=== PATIENT | female | born 1955 | race Caucasian/White ===

== ENCOUNTER 2018-05-17 15:16 | Inpatient (IN) ==
[2018-05-17] MEDS ORDERED: ACETAMINOPHEN 500 MG TABLET PO PRN (16:52)
--- NOTE | 2018-05-17 17:06 | IRU History & Physical Report ---
HPI IRU Date: Date: 05/17/18 Time: 1703 Chief complaint: I fell and have injured both legs HPI: Ms. Mccurdy is a very pleasant 62-year-old female referred by Maged Partida M.D. Her primary care physician is Shelbie Bansal D.O. The patient was caring for her neighbors dog. She had gotten through taking care of the dog and then exited the house and stepped into the garage down 2 steps. This was on 05/12/2018. She felt like her "hip went out" resulting in a fall and severe scraping of her left leg. Injuries sustained included a closed fracture of the shaft the fifth metatarsal bone on the right foot and a nondisplaced fracture of the left lateral malleolus. She also sustained a severe degloving injury of the left lower leg. The patient was transferred to [facility] in [place] where she was seen by Dr. Jung Summers on 05/12/[address] Maged Partida, general surgery. Procedures performed on that date included irrigation and debridement of left lower extremity 20 cm long by 5 cm wide and 24 cm long by 4 cm wide lacerations , application of a wound VAC and a partial primary closure of left lower extremity. She was placed in a postoperative shoe for her right foot metatarsal fracture, although is nonweightbearing on the right lower extremity. Both fractures were treated non-surgically. She currently has a long incision which has been sutured in the anterior aspect of the left chou. There is a very large area of defect with opening down to the bone just lateral to that. The patient has a history of hypertension. She says that the medications that she takes for this sometimes causes leg cramps. At the present time her blood pressure is bit on the low side around 95 systolic, based on information from [place]. She also has history of chronic back pain and obesity. The patient has been independent at home prior to this. She lives with her in their own home. She has 3 steps to get into her home and does not have a railimg available at the present time. Current level of functioning is as follows: She is modified independent for eating, requires supervision for grooming, minimum assistance for upper body dressing and toileting as well as bed/chair/wheelchair transfers. She requires moderate assistance for lower body dressing, minimum assistance for toilet transfers and walking. She is able to ambulate with a rolling walker 10 feet only. She is nonweightbearing on the right lower extremity and weightbearing as tolerated on the left lower extremity. She requires a two-person assist. She is able to take 3 small steps forward, pivot and then take 3 small steps backward to chair without weightbearing on the right lower extremity. She has decreased stride length. She has previous right shoulder surgery consisting of a number of "anchors" in place in the right labrum which impedes her ability to use the walker. The following medical conditions are noted and require active monitoring and/or management: 1. Closed fracture of shaft of fifth metatarsal bone of right foot, nonweightbearing, non-operative repair 2. Nondisplaced fracture left lateral malleolus status post ORIF, weightbearing as tolerated 3. Degloving of left lower extremity with extensive irrigation and debridement with wound VAC application, at risk for wound infection 4. Hypertension, at risk for hypotension and excessive hypertension 5. Chronic back pain 6. Obesity The following therapies will be needed: 1. Physical therapy: for transfers and ambulation and stairs. 2. Occupational therapy: for ADL's and transfers. 3. Medical management: for the above conditions. 4. 24 hour Rehabilitation Nursing to monitor and address the following: Monitor and manage wound care, monitor blood pressures, pain management [facility] Medical History (Last Reviewed 12/23/17 @ 19:30 by ERIKA Gautam) High cholesterol (Chronic Medical) Osteoarthritis (Chronic Medical) HTN (hypertension) (Acute Medical) Restless leg syndrome (Acute Medical) GERD (gastroesophageal reflux disease) (Chronic Medical) Medical History Updates: Migraine headaches. Restless leg syndrome. Insomnia Surgical History: R total knee replacement; R shoulder surgery: labrum surgery with multiple "anchors" placed-2005; L second toe; Resection Prox phalanx L 3rd toe-2012; tonsils, , Tubal ligation Family History: Family History (Last Reviewed 12/23/17 @ 19:30 by ERIKA Gautam) Mother Arthritis Heart attack High blood pressure High cholesterol Stroke Family History Updates: Father of prostate cancer in his early 80s. Mother of heart attack in her early 80s as well. Multiple siblings have hypertension. - Social History Smoking status: Never smoker Substance use type: does not use Alcohol intake: never Alcohol intake frequency: does not drink Housing: house Household members: spouse Current occupational status: employed Current residence: Apartment/Private Home Social history: Patient lives in her own home with her . She is independent at home. 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 Review of Systems - Constitutional Constitutional: Absent: anorexia, chills, fatigue, fever(s), headache(s), lethargy, malaise, night sweats, weakness, weight gain, weight loss - EENMT Eyes: Absent: blurry vision, change in vision, diplopia Mouth/Throat: Absent: changes in swallowing, painful swallowing, change in taste , bleeding gums, change in voice - Cardiovascular Cardiovascular: Absent: chest pain, palpitations, syncope, dyspnea on exertion, orthopnea, edema, cyanosis, heart murmur Rhythm: Present: regular rhythm Vascular: Absent: intermittent claudication, pedal edema, unilateral swelling - Respiratory Respiratory: Absent: cough, dyspnea, hemoptysis, dyspnea on exertion, wheezing, pain on inspiration, chest congestion, excessive phlegm production - Gastrointestinal Gastrointestinal: Absent: abdominal pain, change in bowel habits, constipation, diarrhea, dyspepsia, dysphagia, early satiety, hematochezia, melena, nausea, vomiting - Musculoskeletal Musculoskeletal: Absent: abnormal gait, arthralgias, back pain, joint swelling, limited range of motion, muscle weakness - Integumentary/Breasts Integumentary: Absent: alopecia, erythema, lesions, pruritus, rash, jaundice - Neurological Neurological: Absent: abnormal gait, abnormal movements, abnormal speech, confusion, convulsions, dizziness, focal weakness, frequent falls, headache(s), loss of vision, memory loss, numbness, paresthesias, tremor(s) - Psychiatric Psychiatric: Present: other (insomnia). Absent: abnormal sleep pattern, anxiety , depression - Endocrine Endocrine: Absent: cold intolerance, flushing, heat intolerance, palpitations - Hematologic/Lymphatic Hematologic/Lymphatic: Absent: easy bleeding, easy bruising, lymphadenopathy - Allergic/Immunologic Allergic/Immunologic: Absent: urticaria Medications Home Medications Medication Instructions Recorded Confirmed Type Omeprazole/Sodium Bicarbonate 1 cap PO HS #0 09/20/12 05/17/18 History [Zegerid 20 mg Capsule] Rizatriptan Benzoate [Maxalt] 10 mg PO PRN #0 09/20/12 05/17/18 History hydrochlorothiazide 12.5 mg tablet 12.5 mg PO HS 10/26/17 05/17/18 History Acetaminophen [Acetaminophen Extra 1,000 mg PO Q6HR PRN 05/17/18 05/17/18 History Strength] Amlodipine [Norvasc] 2.5 mg PO HS 05/17/18 05/17/18 History Lisinopril [Prinivil] 20 mg PO HS 05/17/18 05/17/18 History Metoprolol Succinate [Toprol Xl] 100 mg PO HS 05/17/18 05/17/18 History PEG 3350 17gm PACKET [Miralax] 17 gm PO DAILY 05/17/18 05/17/18 History Pramipexole Di-HCl [Mirapex] 0.125 mg PO HS 05/17/18 05/17/18 History Rizatriptan Benzoate [Maxalt] 10 mg PO DAILY PRN 05/17/18 05/17/18 History Allergies Allergy/AdvReac Type Severity Reaction Status Date / Time adhesive Allergy Unknown ITCHING, Verified 12/23/17 14:53 RASH Sulfa (Sulfonamide Allergy Unknown N&V Verified 12/23/17 14:53 Antibiotics) acetaminophen AdvReac Unknown ITCH Verified 12/23/17 14:53 Choline Fenofibrate Allergy Unknown MUSCLE Uncoded 12/23/17 14:53 CRAMPS diclofenac potassium Allergy Unknown STOMACH Uncoded 12/23/17 14:53 DISTRESS oxycodone HCl AdvReac Unknown ITCH Uncoded 12/23/17 14:53 statins AdvReac Uncoded 12/23/17 14:53 Results IRU - Labs Labs: I have reviewed outside records from [facility]. Exam Vital Signs: Temperature 98.3 F 05/17/18 16:31 Pulse Rate 84 05/17/18 16:31 Respiratory Rate 16 05/17/18 16:31 Blood Pressure 144/73 H 05/17/18 16:31 Pulse Oximetry 97 05/17/18 16:31 Height/Weight/BMI: Weight 104.2 kg - Constitutional Present: no acute distress, well nourished, well developed, obese, cooperative - Routine HEENT Exam Head: Present: normocephalic, atraumatic. Absent: cushingoid faces, abrasion, laceration, hematoma Eye: Present: EOMI, PERRL. Absent: conjunctival icterus, scleral injection, periorbital swelling, nystagmus ENT: Present: mucous membranes moist, oropharynx clear - Routine Neck Exam Present: supple, full ROM, trachea midline. Absent: lymphadenopathy, thyromegaly, tenderness, swelling - Routine Chest/Breast/Axilla Exam Chest wall: Absent: tenderness, mass Axillae: Absent: lymphadenopathy, mass - Routine Respiratory Exam Present: CTA bilaterally. Absent: accessory muscle use, decreased breath sounds , prolonged expiratory phase, rales, respiratory distress, rhonchi, stridor, wheezes, crackles, distant breath sounds - Routine Cardiovascular Exam Present: RRR, S1, S2, no murmur. Absent: gallop, S3, S4, click, irregular rhythm - Routine Abdominal Exam Present: soft, normoactive bowel sounds, non distended, non tender. Absent: rebound, guarding, firm, rigid, organomegaly, mass, hernia, wound - Routine Extremities Exam Present: no edema, non tender, pulses intact, normal capillary refill. Absent: cyanosis, clubbing Comments: There is extensive ecchymoses noted over the right dorsal foot and right lower extremity. Pulses are good. Foot is minimally puffy. Left lower extremity was inspected. She has a large defect involving the anterior portion of the left lower extremity with evidence of bone exposure. No evidence of infection present. There is a large longitudinal sutured laceration noted. - Routine Back/Spine/Pelvis Exam Back/Spine: Present: full ROM. Absent: scoliosis, kyphosis - Routine Skin Exam Present: intact, dry, warm. Absent: cyanosis, erythema, pallor, mottling, petechiae, urticaria, lesions, jaundice - Routine Neurological Exam Present: alert, oriented X3, CN II-XII intact, moving all extremities, normal speech - Routine Psychiatric Exam Present: normal affect, normal thought process, cooperative, good insight, good judgment. Absent: depressed, anxious Sepsis Assessment - Evaluation Severe Sepsis: none seen IRU A/P (1) Metatarsal bone fracture Qualifiers: Encounter type: initial encounter Metatarsal bone: fifth Fracture type: closed Fracture alignment: nondisplaced Laterality: right Qualified Code(s ): S92.354A - Nondisplaced fracture of fifth metatarsal bone, right foot, initial encounter for closed fracture Current visit: Yes Status: Acute Patient is nonweightbearing on the right lower extremity which will impact her functional outcome. (2) Lateral malleolar fracture Qualifiers: Encounter type: initial encounter Fracture type: closed Fracture alignment: nondisplaced Laterality: left Qualified Code(s): S82.65XA - Nondisplaced fracture of lateral malleolus of left fibula, initial encounter for closed fracture Current visit: Yes Status: Acute This fracture is treated conservatively. Patient is weightbearing as tolerated on the left lower extremity. (3) Hypertension Qualifiers: Hypertension type: essential hypertension Qualified Code(s): I10 - Essential (primary) hypertension Current visit: Yes Status: Chronic (4) Degloving injury of left lower leg Qualifiers: Encounter type: initial encounter Qualified Code(s): S81.802A - Unspecified open wound, left lower leg, initial encounter Current visit: Yes Status: Acute Patient has severe degloving injury of left lower leg. There is an primary closure of part of the wound and the reverse the wound is treated with wound VAC. DVT Prophylaxis: SCD's, Lovenox GI Prophylaxis: Omeprazole Resuscitation Status: Full Code - Course Hospital Course: Anish Stevens MD: - Interventions to Obtain Goals Goals Progress/Modifications: Patient has sustained multiple functional deficits related to her recent fall with degloving injury which is major involving the left lower extremity, left lateral malleolar evulsion fracture and right fifth metatarsal fracture. She is nonweightbearing in the right lower extremity and weightbearing as tolerated in the left lower extremity. In addition she has hypertension, insomnia and chronic back pain. Previous surgery involving the right shoulder is noted which will negatively impact her ability to bear weight in the right upper extremity.
--- NOTE | 2018-05-17 17:17 | IRU 24Hr Post Admit Eval ---
24 Hr Post Admission Physical - Relevant Changes Relevant Changes: No Reviewed: I have reviewed the patient's information and concur with the finding and results of the pre-admission screen. Certification: I certify the patient for rehabilitation. - Patient Condition (1) Metatarsal bone fracture Status: Acute Qualifiers: Encounter type: initial encounter Metatarsal bone: fifth Fracture type: closed Fracture alignment: nondisplaced Laterality: right Qualified Code(s ): S92.354A - Nondisplaced fracture of fifth metatarsal bone, right foot, initial encounter for closed fracture Code(s): S92.309A - Fracture of unspecified metatarsal bone(s), unspecified foot , initial encounter for closed fracture Classification: Present on IRF Admission, IRF Tx That Should Address Diagnosis, Diagnosis Requiring Medical Follow Up (2) Lateral malleolar fracture Status: Acute Qualifiers: Encounter type: initial encounter Fracture type: closed Fracture alignment: nondisplaced Laterality: left Qualified Code(s): S82.65XA - Nondisplaced fracture of lateral malleolus of left fibula, initial encounter for closed fracture Code(s): S82.63XA - Displaced fracture of lateral malleolus of unspecified fibula, initial encounter for closed fracture Classification: Present on IRF Admission, IRF Tx That Should Address Diagnosis, Diagnosis Requiring Medical Follow Up (3) Hypertension Status: Chronic Qualifiers: Hypertension type: essential hypertension Qualified Code(s): I10 - Essential (primary) hypertension Code(s): I10 - Essential (primary) hypertension Classification: Present on IRF Admission, IRF Tx That Should Address Diagnosis, Diagnosis Requiring Medical Follow Up (4) Degloving injury of left lower leg Status: Acute Qualifiers: Encounter type: initial encounter Qualified Code(s): S81.802A - Unspecified open wound, left lower leg, initial encounter Code(s): S81.802A - Unspecified open wound, left lower leg, initial encounter Classification: Present on IRF Admission, IRF Tx That Should Address Diagnosis, Diagnosis Requiring Medical Follow Up - Prior Functional Status Lives With: Spouse Residence Type: Apartment/Private Home Assitive Devices: None Prior Functional Status: Indep. at home or school, Indep. w/ IADL - Current Functional Status Current Level of Function: Current level of functioning is as follows: She is modified independent for eating, requires supervision for grooming, minimum assistance for upper body dressing and toileting as well as bed/chair/wheelchair transfers. She requires moderate assistance for lower body dressing, minimum assistance for toilet transfers and walking. She is able to ambulate with a rolling walker 10 feet only. She is nonweightbearing on the right lower extremity and weightbearing as tolerated on the left lower extremity. She requires a two-person assist. She is able to take 3 small steps forward, pivot and then take 3 small steps backward to chair without weightbearing on the right lower extremity. She has decreased stride length. She has previous right shoulder surgery consisting of a number of "anchors" in place in the right labrum which impedes her ability to use the walker. Failed Alternative Therapy: Arrived from Acute Care Patient Requirements: The patient requires oversight by rehabilitation physician to manage their rehabilitation treatment plan and multidisciplinary approach to care that can only be provided in an IRF and requires a multidisciplinary approach to care, provided by professional PTs, OTs, STs, dieticians, RTs, rehabilitation nurses and is not available in lesser levels of care. Limitations Req: Mobility Impairment, ADL Impairment Physical Therapy Minutes: 90 Occupational Therapy Minutes: 90 Therapy: The patient is to receive therapy at least 5 days a week. - Complications/Comorbidities Impact on Functional Outcomes: Patient has history of previous surgery involving the right shoulder. She now has bilateral lower extremity fractures and a severe degloving injury of the left lower extremity which will negatively impact her functional outcome. Barriers to Discharge: Balance, Endurance, Pain Control - Plan to Avoid Complications Plan to Avoid Complications: The patient cannot receive this care in a lesser intensive setting such as Nursing Home or Outpatient Therapy due to the patient requiring the following : Patient has a severe wound involving the soft tissue down to the bone on the left lower extremity. This requires close nursing monitoring and wound VAC management. In addition she has bilateral lower extremity fractures, requiring a multidisciplinary approach with physical therapy and occupational therapy. She has history of chronic back pain, obesity and hypertension all of which need to be monitored carefully and which prevent her from being cared for at a less intensive environment.
--- NOTE | 2018-05-17 17:22 | Wound Care Progress Note ---
Wound Management - Patient Status Premedicated Prior to Dressing Change: No - Wound Left Lower Leg Wound Type: Open Wound Wound Present on Admission?: Yes Degree of Burn: Full Thickness Length: 21 Width: 6.5 Depth: 2.6 Wound Bed Appearance: Beefy Red Yana Wound Appearance: [place], Weeping Tunneling: No Undermining: No Drainage Description: Serosanguineous Drainage Amount: Moderate Drainage Odor: No Odor Dressing Status: Changed Packing Type: Woundvac Sponge Number of Packing Pieces Placed?: 2 Primary Dressing: Transparent Drape Secondary Dressing: Trac Pad Dressing Change Date: 05/17/18 Dressing Change Time: 17:21 Dressing Change Patient Tolerance: Tolerated Well (Pt arrived with a wet to dry drsg, which was removed and black KCI foam place and attached to vac at 125mm) Left Lower Medial Leg Wound Present on Admission?: Yes Drainage Description: Serosanguineous Drainage Amount: Moderate Drainage Odor: No Odor Dressing Status: Changed Primary Dressing: Foam Dressing (Mepilex placed to incision to contain drainage. Incision is well approximated.) Dressing Change Date: 05/17/18 Dressing Change Time: 17:22
[2018-05-17 17:30] VITALS: BMI 39.4
--- NOTE | 2018-05-17 19:10 | General Surgery Consult Note ---
Consult date: 05/18/18 Attending Physician: Anish Stevens MD REPLACED BY [facility] Patient Stated Medical History Hypertension Yes Hx Incontinence No Osteoarthritis Yes Clinic Medical History (Last Reviewed 12/23/17 @ 19:30 by ERIKA Gautam) High cholesterol (Chronic Medical) Osteoarthritis (Chronic Medical) HTN (hypertension) (Acute Medical) Restless leg syndrome (Acute Medical) GERD (gastroesophageal reflux disease) (Chronic Medical) Obesity Medical History Updates: Migraine headaches. Restless leg syndrome. Insomnia Surgical History: R total knee replacement; R shoulder surgery: labrum surgery with multiple "anchors" placed-2005; L second toe; Resection Prox phalanx L 3rd toe-2012; tonsils, , Tubal ligation Family History: Family History (Last Reviewed 12/23/17 @ 19:30 by ERIKA Gautam) Mother Arthritis Heart attack High blood pressure High cholesterol Stroke Family History Updates: Father of prostate cancer in his early 80s. Mother of heart attack in her early 80s as well. Multiple siblings have hypertension. - Social History Smoking status: Never smoker Substance use type: does not use Alcohol intake: never Alcohol intake frequency: does not drink Housing: house Household members: spouse Current occupational status: employed Current residence: Apartment/Private Home Medications Home Medications Medication Instructions Recorded Confirmed Type Omeprazole/Sodium Bicarbonate 1 cap PO HS #0 09/20/12 05/17/18 History [Zegerid 20 mg Capsule] Rizatriptan Benzoate [Maxalt] 10 mg PO PRN #0 09/20/12 05/17/18 History hydrochlorothiazide 12.5 mg tablet 12.5 mg PO HS 10/26/17 05/17/18 History Acetaminophen [Acetaminophen Extra 1,000 mg PO Q6HR PRN 05/17/18 05/17/18 History Strength] Amlodipine [Norvasc] 2.5 mg PO HS 05/17/18 05/17/18 History Lisinopril [Prinivil] 20 mg PO HS 05/17/18 05/17/18 History Metoprolol Succinate [Toprol Xl] 100 mg PO HS 05/17/18 05/17/18 History PEG 3350 17gm PACKET [Miralax] 17 gm PO DAILY 05/17/18 05/17/18 History Pramipexole Di-HCl [Mirapex] 0.125 mg PO HS 05/17/18 05/17/18 History Rizatriptan Benzoate [Maxalt] 10 mg PO DAILY PRN 05/17/18 05/17/18 History Allergies Allergy/AdvReac Type Severity Reaction Status Date / Time adhesive Allergy Unknown ITCHING, Verified 12/23/17 14:53 RASH Sulfa (Sulfonamide Allergy Unknown N&V Verified 12/23/17 14:53 Antibiotics) acetaminophen AdvReac Unknown ITCH Verified 12/23/17 14:53 Choline Fenofibrate Allergy Unknown MUSCLE Uncoded 12/23/17 14:53 CRAMPS diclofenac potassium Allergy Unknown STOMACH Uncoded 12/23/17 14:53 DISTRESS oxycodone HCl AdvReac Unknown ITCH Uncoded 12/23/17 14:53 statins AdvReac Uncoded 12/23/17 14:53 Review of Systems 10-point ROS: negative except for HPI and the following: - Cardiovascular Cardiovascular: Absent: chest pain (angina) - Respiratory Respiratory: Absent: difficulty breathing - Gastrointestinal Gastrointestinal: Absent: nausea - Musculoskeletal Musculoskeletal: Present: joint pain, other (injuries from fall and right foot fracture) - Neurological Neurological: Present: other (restless leg syndrome, poor balance) - Vital Signs Last Vital Signs Temp 98.3 F 05/17/18 16:31 Pulse 84 05/17/18 18:08 Resp 16 05/17/18 18:08 BP 144/73 H 05/17/18 16:31 Pulse Ox 97 05/17/18 18:08 - Laboratory Result Diagrams: 05/18/18 06:29 05/18/18 06:29
[2018-05-17] MEDS: AMLODIPINE 2.5 MG TABLET PO SCH (21:12)
[2018-05-17] MEDS: HYDROCODONE/APAP 7.5 MG/325 MG TABLET PO PRN (21:12)
[2018-05-17] MEDS: APIXABAN 2.5 MG TABLET PO SCH (21:12)
[2018-05-17] MEDS: LISINOPRIL 20 MG TABLET PO SCH (21:13)
[2018-05-17] MEDS: ZOLPIDEM 5 MG TABLET PO SCH (21:14)
[2018-05-17] MEDS: PRAMIPEXOLE 0.25 MG TABLET PO SCH (21:14)
[2018-05-17] MEDS: OMEPRAZOLE 20 MG CAPSULE PO SCH (21:15)
[2018-05-18] MEDS: HYDROCODONE/APAP 7.5 MG/325 MG TABLET PO PRN ×3 (05:31→14:28)
[2018-05-18] MEDS: APIXABAN 2.5 MG TABLET PO SCH ×2 (08:22→20:55)
[2018-05-18] MEDS: POLYETHYL GLYCOL 3350 17gm PACKET PO SCH (08:23)
[2018-05-18] MEDS ORDERED: ENOXAPARIN 40 MG/0.4 ML INJECTION SQ SCH (09:00)
--- NOTE | 2018-05-18 10:47 | IRU Progress Note ---
- Subjective/Serverity of Illness Date: 05/18/18 was reassessed in her room and inpatient rehabilitation. She states that she had a good night and that her pain is adequately controlled. Wound VAC is in place in the left lower extremity. Restless legs were not issued last night and she received her Mirapex as well as Ambien. (Has been on Ambien for 3-4 months about every night she states.) She states that she has no shortness of breath or chest pain. She is eager to get started with therapy and her goal, as hours, is to get her home in a safe manner able to take care of herself. Reviewed her lab. Her hemoglobin is down to 8.7. Indices are fairly normal so likely this is simply acute blood loss. However, for completeness, we will pursue iron studies and stool for Hemoccult. Her blood pressures are reviewed. They are controlled for the most part. She is not hypotensive at present. Exam Vital Signs: Temperature 98.3 F 05/18/18 08:00 Pulse Rate 81 05/18/18 08:00 Respiratory Rate 16 05/18/18 08:00 Blood Pressure 124/65 05/18/18 08:00 Pulse Oximetry 97 05/18/18 08:00 Height/Weight/BMI: Height 1.63 m Weight 104.2 kg Body Mass Index 39.4 - Constitutional Present: no acute distress, well nourished, well developed, obese, cooperative - Routine HEENT Exam Eye: Present: EOMI ENT: Present: mucous membranes moist, dentition normal - Routine Neck Exam Present: supple - Routine Respiratory Exam Present: CTA bilaterally. Absent: wheezes - Routine Cardiovascular Exam Present: RRR, S1, S2. Absent: murmur - Routine Abdominal Exam Present: soft, normoactive bowel sounds, non distended. Absent: tenderness - Routine Extremities Exam Present: no edema, normal capillary refill Comments: Inspected both lower extremities. She has good pulses. Wound VAC in place in the left lower extremity. No surrounding erythema noted. - Routine Skin Exam Present: dry, warm, wounds - Routine Neurological Exam Present: alert, oriented X3, CN II-XII intact - Routine Psychiatric Exam Present: normal affect, normal thought process, cooperative, good insight, good judgment Results IRU - Labs Labs: Reviewed chart data including hemoglobin of 8.7. IRU A/P (1) Metatarsal bone fracture Qualifiers: Encounter type: initial encounter Metatarsal bone: fifth Fracture type: closed Fracture alignment: nondisplaced Laterality: right Qualified Code(s ): S92.354A - Nondisplaced fracture of fifth metatarsal bone, right foot, initial encounter for closed fracture Current visit: Yes Status: Acute Pain adequately controlled. Remains nonweightbearing right lower extremity. (2) Lateral malleolar fracture Qualifiers: Encounter type: initial encounter Fracture type: closed Fracture alignment: nondisplaced Laterality: left Qualified Code(s): S82.65XA - Nondisplaced fracture of lateral malleolus of left fibula, initial encounter for closed fracture Current visit: Yes Status: Acute (3) Hypertension Qualifiers: Hypertension type: essential hypertension Qualified Code(s): I10 - Essential (primary) hypertension Current visit: Yes Status: Chronic Blood pressure initially reported to be low in [place] but is adequate here. (4) Degloving injury of left lower leg Qualifiers: Encounter type: initial encounter Qualified Code(s): S81.802A - Unspecified open wound, left lower leg, initial encounter Current visit: Yes Status: Acute Tolerating wound VAC adequately. Surgery has been consulted. (5) Acute blood loss anemia Current visit: Yes Status: Acute Hemoglobin is 8.7. Presumably this is related to acute blood loss from the severe injury in the left lower extremity. Her indices appear to be normal. She is asymptomatic at present. We will assess iron studies and stool for occult blood for completeness. DVT Prophylaxis: SCD's, Lovenox Resuscitation Status: Full Code - Course Hospital Course: Anish Stevens MD: 05/18/18 10:49 Getting started with therapy. Pain adequately controlled. Significant anemia noted, presumably from acute blood loss. - Interventions to Obtain Goals OT Treatment Plan: ADL (Basic Care), Balance Training, IADL, Pt./Family Education, Ther. Exercise for ADL Goals Progress/Modifications: We will workup her anemia with iron studies, ferritin and stool for occult blood. Right now she is asymptomatic. We will recheck the hemoglobin in the morning as well. Pain appears to be adequately controlled. She is tolerating the wound VAC adequately. Blood pressures are adequately controlled.Please note that the patient's individual plan of care was developed and documented today, requiring review of therapy notes, medical conditions and anticipated functional recovery. This required additional medical decision making with regard to interaction of the patient's medical issues with the anticipated functional recovery. Please see separate document.
--- NOTE | 2018-05-18 10:54 | IRU Plan of Care ---
[facility] Overall Plan of Care - Date Date: 05/18/18 - Patient Impairments (1) Metatarsal bone fracture Qualifiers: Encounter type: initial encounter Metatarsal bone: fifth Fracture type: closed Fracture alignment: nondisplaced Laterality: right Qualified Code(s ): S92.354A - Nondisplaced fracture of fifth metatarsal bone, right foot, initial encounter for closed fracture Code(s): S92.309A - Fracture of unspecified metatarsal bone(s), unspecified foot , initial encounter for closed fracture Status: Acute Classification: Present on IRF Admission, IRF Tx That Should Address Diagnosis, Diagnosis Requiring Medical Follow Up (2) Lateral malleolar fracture Qualifiers: Encounter type: initial encounter Fracture type: closed Fracture alignment: nondisplaced Laterality: left Qualified Code(s): S82.65XA - Nondisplaced fracture of lateral malleolus of left fibula, initial encounter for closed fracture Code(s): S82.63XA - Displaced fracture of lateral malleolus of unspecified fibula, initial encounter for closed fracture Status: Acute Classification: Present on IRF Admission, IRF Tx That Should Address Diagnosis, Diagnosis Requiring Medical Follow Up (3) Hypertension Qualifiers: Hypertension type: essential hypertension Qualified Code(s): I10 - Essential (primary) hypertension Code(s): I10 - Essential (primary) hypertension Status: Chronic Classification: Present on IRF Admission, IRF Tx That Should Address Diagnosis, Diagnosis Requiring Medical Follow Up (4) Degloving injury of left lower leg Qualifiers: Encounter type: initial encounter Qualified Code(s): S81.802A - Unspecified open wound, left lower leg, initial encounter Code(s): S81.802A - Unspecified open wound, left lower leg, initial encounter Status: Acute Classification: Present on IRF Admission, IRF Tx That Should Address Diagnosis, Diagnosis Requiring Medical Follow Up (5) Acute blood loss anemia Code(s): D62 - Acute posthemorrhagic anemia Status: Acute Classification: Present on IRF Admission, IRF Tx That Should Address Diagnosis, Diagnosis Requiring Medical Follow Up - Relevant Changes Relevant Changes: No Reviewed: I have reviewed the patient's information and concur with the finding and results of the pre-admission screen. Certification: I certify the patient for rehabilitation. - Medical Prognosis Medical Prognosis: Good Vital Signs: Last Vital Signs Temp 98.3 F 05/18/18 08:00 Pulse 81 05/18/18 08:00 Resp 16 05/18/18 08:00 BP 124/65 05/18/18 08:00 Pulse Ox 97 05/18/18 08:00 - Anticipated Interventions Anticipated Interventions: The patient requires inpatient IRF care for PT and ST for residuals remaining from fall, multiple fractures and severe soft tissue injury of left lower extremity resulting in muscular weakness and strength deficits. An individualized overall plan of care has been developed after careful review of the patient's preadmission screening, post admission physician evaluation and assessments of all therapy disciplines and/or other pertinent clinicians involved in treating the patient. This indicates medical necessity and rehabilitation necessity have been established through a thorough review of all available medical information. - Current Functional Status Failed Alternative Therapy: Arrived from Acute Care Patient Requires: The patient requires oversight by rehabilitation physician to manage their rehabilitation treatment plan and multidisciplinary approach to care that can only be provided in an IRF and requires a multidisciplinary approach to care, provided by professional PTs, OTs, STs, rehabilitation nurses, and may require STs, dieticians, and RTS. This is not available in lesser levels of care. Physical Therapy Minutes: 90 Occupational Therapy Minutes: 90 Therapy: The patient is to receive therapy at least 5 days a week. - Anticipated LOS/Outcomes Anticipated Functional Outcome: It is anticipated that he will be able to return to her home at modified independent level of functioning, remaining nonweightbearing on the right lower extremity and able to ambulate with an assistive device. It is anticipated she will be able to care for herself independently. Anticipated Length of Stay (days): 14 Anticipated DC Destination: Home, Self Nursing Home Safety Plan: The patient will be provided with the development of a Home Safety Plan for return to a home or home-like environment and and to ensure safety post discharge. - Plan to Avoid Complications Barriers to Attaining Goals: Endurance, Pain Control Plan to Avoid Complications: The patient cannot receive this care in a lesser intensive setting such as [facility] or Outpatient Therapy due to the patient requiring the following : Patient requires specialized nursing care regarding the left lower extremity wound with wound VAC, along with a multidisciplinary approach with physical therapy and occupational therapy. She is at risk for wound infection and further vascular compromise. She requires medical supervision in view of her blood pressure, acute blood loss anemia as well as pain management. These are not available at a less intensive setting.
[2018-05-18] MEDS ORDERED: FALL RISK - PHARMACY CONSULT MC ONE (11:06)
--- NOTE | 2018-05-18 11:18 | Consult Note ---
Consult Information - Data of Consult Consult date: 05/18/18 Requesting Physician: Anish Stevens MD Primary Care Provider: Dr Bansal - Consult Narrative Reason for consult: Medical management History of present illness: Patient is a 62-year-old female who was taking care of her neighbor's dog, walked down the stairs in the garage, and fell because she felt like her left hip gave out. This resulted in a degloving injury of the left lower extremity, a fracture of the right fifth metatarsal, and an avulsion fracture to the left lateral malleolus (fractures were nonsurgical). Injury occurred on May 12. She was taken to [facility] where she was seen by Dr. Maged Partida (general surgeon ) who performed irrigation and debridement, partial primary closure and application of wound VAC of the left lower extremity. Patient reports she was on IV antibiotics while hospitalized in [place] but never had any significant infection that she is aware of. On arrival to our facility she is not on any antibiotics and there is no sign of infection. She is currently nonweightbearing on the right lower extremity due to her metatarsal fracture. She can weight-bear on the left lower extremity, but obviously has pain with this. As long she has pain medication on board, ambulation is tolerable. She states she is on chronic [place] for chronic back pain. Other health issues include hypertension, obesity, hyperlipidemia, GERD, and restless leg syndrome. Past Medical History Medical History: Medical History (Last Reviewed 12/23/17 @ 19:30 by ERIKA Gautam) High cholesterol (Chronic) Osteoarthritis (Chronic) HTN (hypertension) Restless leg syndrome GERD (gastroesophageal reflux disease) Medical History Updates: Migraine headaches. Restless leg syndrome. Insomnia Surgical History: R total knee replacement; R shoulder surgery: labrum surgery with multiple "anchors" placed-2005; L second toe; Resection Prox phalanx L 3rd toe-2012; tonsils, , Tubal ligation, surgical repair & wound VAC for degloving injury to left lower extremity 05/12/18 (Dr. Maged Partida) Family History: Family History Father - age early 80s - prostate cancer Mother - early 80s -[place] Arthritis Heart attack High blood pressure High cholesterol Stroke Multiple siblings-hypertension Family History: As Above - Social History Smoking status: Never smoker Substance use type: does not use Alcohol intake frequency: does not drink Housing: house Household members: spouse Current occupational status: employed ([employer] in [place]) Current residence: Apartment/Private Home Social history: She and her lived in [place]. is self-employed (pest control). PCP is Dr. Shelbie Bansal Review of Systems All systems PM: 10-point ROS was reviewed, no additional remarkable complaints except (had some nausea that occurred when she was feeling hot earlier this morning in her room. No vomiting. Feels fine now. Only complaint is the pain in her leg which she rates 2/10.) Medications Home Medications Medication Instructions Recorded Confirmed Type Omeprazole/Sodium Bicarbonate 1 cap PO HS #0 09/20/12 05/17/18 History [Zegerid 20 mg Capsule] Rizatriptan Benzoate [Maxalt] 10 mg PO PRN #0 09/20/12 05/17/18 History hydrochlorothiazide 12.5 mg tablet 12.5 mg PO HS 10/26/17 05/17/18 History Acetaminophen [Acetaminophen Extra 1,000 mg PO Q6HR PRN 05/17/18 05/17/18 History Strength] Amlodipine [Norvasc] 2.5 mg PO HS 05/17/18 05/17/18 History Lisinopril [Prinivil] 20 mg PO HS 05/17/18 05/17/18 History Metoprolol Succinate [Toprol Xl] 100 mg PO HS 05/17/18 05/17/18 History PEG 3350 17gm PACKET [Miralax] 17 gm PO DAILY 05/17/18 05/17/18 History Pramipexole Di-HCl [Mirapex] 0.125 mg PO HS 05/17/18 05/17/18 History Rizatriptan Benzoate [Maxalt] 10 mg PO DAILY PRN 05/17/18 05/17/18 History Allergies Allergy/AdvReac Type Severity Reaction Status Date / Time adhesive Allergy Unknown ITCHING, Verified 12/23/17 14:53 RASH Sulfa (Sulfonamide Allergy Unknown N&V Verified 12/23/17 14:53 Antibiotics) acetaminophen AdvReac Unknown ITCH Verified 12/23/17 14:53 Choline Fenofibrate Allergy Unknown MUSCLE Uncoded 12/23/17 14:53 CRAMPS diclofenac potassium Allergy Unknown STOMACH Uncoded 12/23/17 14:53 DISTRESS oxycodone HCl AdvReac Unknown ITCH Uncoded 12/23/17 14:53 statins AdvReac Uncoded 12/23/17 14:53 Exam Vital Signs: Temperature 98.3 F 05/18/18 08:00 Pulse Rate 81 05/18/18 08:00 Respiratory Rate 16 05/18/18 08:00 Blood Pressure 124/65 05/18/18 08:00 Pulse Oximetry 97 05/18/18 08:00 Height/Weight/BMI: Height 1.63 m Weight 104.2 kg Body Mass Index 39.4 - Constitutional Present: no acute distress, well nourished, well developed - Routine HEENT Exam Head: Present: normocephalic, atraumatic Eye: Present: EOMI, PERRL ENT: Present: mucous membranes moist, oropharynx clear - Routine Neck Exam Present: supple, full ROM. Absent: lymphadenopathy - Routine Respiratory Exam Present: CTA bilaterally. Absent: wheezes - Routine Cardiovascular Exam Present: RRR, no murmur - Routine Abdominal Exam Present: soft, normoactive bowel sounds. Absent: tenderness, distended - Routine Extremities Exam Present: normal capillary refill Comments: She has edema of the right foot and lower leg with ecchymosis to the lower leg, dorsum and plantar surface of the foot. Tender over the mid to distal right fifth metatarsal. She has significant swelling into the left lower extremity with wound VAC in place to the left lateral lower leg and sutures intact both medial and distal to the wound VAC. Wound is examined while the dressing was being changed. There is no sign of infection. No drainage beyond what is being absorbed in the wound VAC. Overall, repair looks good at this point. - Routine Skin Exam Present: dry, warm - Routine Neurological Exam Present: alert, oriented X3, CN II-XII intact - Routine Psychiatric Exam Present: normal affect, cooperative Results - Labs CBC & Chem 7: 05/18/18 06:29 05/18/18 06:29 Assessment and Plan (1) Degloving injury of left lower leg Current visit: Yes Status: Acute Assessment and Plan: Assessment Status post degloving injury to the left lower leg with partial primary closure and wound VAC application on 05/12/[address] Maged Partida Right closed fifth metatarsal fracture Left lateral malleolus avulsion fracture Normocytic anemia-POA - likely acute blood loss anemia from recent injury/ surgery. Thrombocytosis-POA Hypertension Osteoarthritis Hyperlipidemia Restless leg syndrome GERD Insomnia Migraine headaches Plan Agree with admission to IRU for further strengthening, improvement in functional abilities, and pain control per Dr. Stevens. Dr. Leung and wound clinic have been consulted to to assist in caring for patient's wound. Blood pressures have been stable since arrival. She is currently on Norvasc, hydrochlorothiazide, lisinopril, metoprolol. She is on omeprazole for GERD, Mirapex for restless legs, Ambien for insomnia, Eliquis for DVT prophylaxis, MiraLAX for bowel motivation, and [place] and Tylenol for pain. Hemoglobin low on admission at 8.7. Iron, TIBC, ferritin, % sat, and stool for occult blood are pending. Hospitalist service will continue to follow patient throughout her stay. We appreciate the consult. DVT Prophylaxis: Eliquis Resuscitation Status: Full Code - Physician Narrative Physician: Sailaja Licona MD Narrative: Date: 05/18/18 Time: 2214 I have independently evaluated and examined this patient. I reviewed the chart, the patient's history, and the LAST CHALKER/PA's documented findings as above. We discussed and formulated the assessment and plan as above with additions as below: was seen in the dining room earlier this evening. She describes injury with degloving skin avulsion of the left lower extremity with associated deep wound in the mid chou area; wound VAC is being utilized after primary closure of much of the lower extremity wound. Pain control is adequate. Minor fractures as noted above. NAD, alert, in good spirits Respirations nonlabored, good airflow, breath sounds clear Regular rhythm, S1 and S2 with soft systolic murmur Large wound VAC covering the anterior and anterolateral surfaces of the right chou. Will not directly visualized by myself. Blood pressures borderline on several occasions-continue to monitor on home regimen. Anemia noted, electrolytes unremarkable. Blood sugar borderline high fasting this a.m.-recheck intermittently. Iron deficient-supplement initiated. Hospital Course Summary Disclaimer: The visit summary below is not to be considered part of the above Progress Note. Hospital Course: 05/18/18 Agree with admission to IRU for further strengthening, improvement in functional abilities, and pain control per Dr. Stevens. Dr. Leung and wound clinic have been consulted to to assist in caring for patient's wound. Blood pressures have been stable since arrival. She is currently on Norvasc, hydrochlorothiazide, lisinopril, metoprolol. She is on omeprazole for GERD, Mirapex for restless legs, Ambien for insomnia, Eliquis for DVT prophylaxis, MiraLAX for bowel motivation, and [place] and Tylenol for pain. Hemoglobin low on admission at 8.7. Iron, TIBC, ferritin, % sat, and stool for occult blood are pending. Hospitalist service will continue to follow patient throughout her stay. We appreciate the consult.
[2018-05-18] MEDS: ZOLPIDEM 5 MG TABLET PO SCH (20:54)
[2018-05-18] MEDS: LISINOPRIL 20 MG TABLET PO SCH (20:54)
[2018-05-18] MEDS: PRAMIPEXOLE 0.25 MG TABLET PO SCH (20:54)
[2018-05-18] MEDS: OMEPRAZOLE 20 MG CAPSULE PO SCH (20:55)
[2018-05-18] MEDS: AMLODIPINE 2.5 MG TABLET PO SCH (20:55)
--- NOTE | 2018-05-18 20:59 | Consultation ---
DATE OF CONSULTATION 05/18/2018 FINDINGS Betty Jeter is a pleasant 62-year-old female whom I was asked to see as a new patient as a result of her history for a traumatic wound involving her left lower extremity. Patient states on May 12 she had fallen down a couple of stairs resulting in a degloving injury to her left lower extremity in conjunction with a few fractures. Patient states that she was transferred to [facility] and was taken care of by General Surgery and Orthopedic Surgery as a result of her traumatic wound and fractures. The patient has been transferred to our facility for rehab. This evening she was in good spirits. She states that she is still experiencing a moderate discomfort as a result of her injuries. Patient states that she still experiences a fair amount of pain "just above her wound." The patient states that the general surgeon in [place] had closed the majority of the wound but that there was a "crater still left within the middle" and a wound VAC has been utilized at this site. The pain involving her left lower extremity is worse with movement and upon palpation. Discomfort is made better with rest. PAST MEDICAL HISTORY, PAST SURGICAL HISTORY, MEDICATIONS, ALLERGIES, SOCIAL HISTORY, FAMILY HISTORY, REVIEW OF SYSTEMS Performed by my nurse practitioner, Basil Costa APRN. PHYSICAL EXAMINATION GENERAL: Mrs. Jeter is a 62-year-old female who does not appear to be in acute distress this evening. VITAL SIGNS: Temperature 98.5, pulse 73, respirations 18, blood pressure 154/71 , SAO2 99%on room air. HEENT: Normocephalic. Pupils are equally round and react to light and accommodation. CHEST: Clear to auscultation bilaterally. HEART: Regular rate and rhythm. Normal S1 and S2 without gallops, murmurs or clicks. ABDOMEN: Palpation of the abdomen reveals it to be soft and nontender. I do not appreciate any evidence for hepatosplenomegaly nor abnormal masses. EXTREMITIES: Attention was focused to the left lower extremity. One can see a wound VAC in place covering the left mid anterior tibial region. Periwound area surrounding the VAC is edematous and has some slight component of erythema. There is no evidence for skin necrosis along the edge of the wound seen beneath the Steri-Drape of the wound VAC. Palpation does elicit a fair amount of discomfort to the patient proximal to her wound. One can also see an open portion of the wound with a few Prolene sutures present just medial and caudad to the wound VAC placement site. NEURO: Cranial nerves II-XII grossly intact. Patient is without focal motor or sensory deficits. ASSESSMENT 62-year-old female status post fall with resultant degloving injury to left lower extremity and multiple fractures. Patient overall doing well. PLAN I informed the patient that her wound VAC is scheduled to be changed on . I informed the patient that I would like to be present during her wound VAC change to evaluate her wound. Will continue to utilize negative wound pressure therapy to facilitate healing at this time. I do not see any signs of significant periwound erythema to suggest recurrent infection. Will make further wound care/surgical recommendations once I have evaluated her wound more thoroughly during her next wound VAC change. AHMET
[2018-05-19] MEDS: HYDROCODONE/APAP 7.5 MG/325 MG TABLET PO PRN ×4 (02:49→20:43)
[2018-05-19] MEDS: POLYETHYL GLYCOL 3350 17gm PACKET PO SCH (08:25)
[2018-05-19] MEDS: APIXABAN 2.5 MG TABLET PO SCH ×2 (08:25→20:46)
[2018-05-19] MEDS: FERROUS GLUCONATE 324 MG TABLET PO SCH (08:57)
--- NOTE | 2018-05-19 11:26 | IRU Progress Note ---
- Subjective/Serverity of Illness Date: 05/19/18 is making good progress with therapy. Able to cooperate with occupational therapy and do well. Has difficulty maintaining nonweightbearing on the right lower extremity. Wound VAC remains in place. She reports that as long as she has pain medications on board, pain is adequately controlled. She is sleeping well at night. She has been seen by Dr. Leung who plans to be her tomorrow during the time of her wound VAC change. Possibility of needing grafting at some point is noted. I have reviewed other providers notes. The patient does have iron deficiency anemia and is now on oral iron. She likely has accommodation of acute blood loss anemia along with more chronic iron deficiency anemia. Stool exam for occult blood is negative. Exam Vital Signs: Temperature 98.2 F 05/19/18 07:37 Pulse Rate 75 05/19/18 07:37 Respiratory Rate 16 05/19/18 07:37 Blood Pressure 129/69 05/19/18 07:37 Pulse Oximetry 96 05/19/18 07:37 Height/Weight/BMI: Height 1.63 m Weight 104.2 kg Body Mass Index 39.4 - Constitutional Present: no acute distress, well nourished, well developed, obese, cooperative - Routine HEENT Exam Eye: Present: EOMI ENT: Present: mucous membranes moist, dentition normal - Routine Respiratory Exam Present: CTA bilaterally. Absent: wheezes - Routine Cardiovascular Exam Present: RRR, S1, S2. Absent: murmur - Routine Abdominal Exam Present: soft, normoactive bowel sounds, non distended. Absent: tenderness - Routine Extremities Exam Present: edema (slight puffiness of both lower extremities. 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 Tolerating well. - Routine Skin Exam Present: dry, warm - Routine Neurological Exam Present: alert, oriented X3, CN II-XII intact - Routine Psychiatric Exam Present: normal affect, cooperative, good insight, good judgment Results IRU - Labs Labs: Have reviewed laboratory findings indicating iron deficiency anemia. Also have reviewed other providers notes. IRU A/P (1) Metatarsal bone fracture Qualifiers: Encounter type: initial encounter Metatarsal bone: fifth Fracture type: closed Fracture alignment: nondisplaced Laterality: right Qualified Code(s ): S92.354A - Nondisplaced fracture of fifth metatarsal bone, right foot, initial encounter for closed fracture Current visit: Yes Status: Acute Has difficulty maintaining nonweightbearing on the right foot. Again was reminded of the importance of this. (2) Lateral malleolar fracture Qualifiers: Encounter type: initial encounter Fracture type: closed Fracture alignment: nondisplaced Laterality: left Qualified Code(s): S82.65XA - Nondisplaced fracture of lateral malleolus of left fibula, initial encounter for closed fracture Current visit: Yes Status: Acute (3) Hypertension Qualifiers: Hypertension type: essential hypertension Qualified Code(s): I10 - Essential (primary) hypertension Current visit: Yes Status: Chronic Overall her blood pressures are adequately controlled. (4) Degloving injury of left lower leg Qualifiers: Encounter type: initial encounter Qualified Code(s): S81.802A - Unspecified open wound, left lower leg, initial encounter Current visit: Yes Status: Acute No evidence of active infection. Tolerating wound VAC adequately with scheduled change tomorrow. Dr. Leung has been consulted and will plan to see the patient at that time. Have reviewed his note from previously. Likely she will need grafting at some point. (5) Acute blood loss anemia Current visit: Yes Status: Acute Patient appears to have acute blood loss anemia in addition to more chronic iron deficiency anemia. She is on supplemental iron. Her stool is negative for occult blood. DVT Prophylaxis: Eliquis Resuscitation Status: Full Code - Course Hospital Course: Anish Stevens MD: 05/18/18 10:49 Getting started with therapy. Pain adequately controlled. Significant anemia noted, presumably from acute blood loss. 05/19/18 11:26 Pain controlled. Has acute blood loss anemia plus iron deficiency. Has been seen by surgery. Tolerating therapy well and making progress. - Interventions to Obtain Goals PT Treatment Plan: Balance/Proprioception, Functional Activities, Gait Training , Patient/Family Education, Therapeutic Exercise OT Treatment Plan: ADL (Basic Care), Balance Training, IADL, Pt./Family Education, Ther. Exercise for ADL
[2018-05-19] MEDS: TRAMADOL 50 MG TABLET PO PRN ×2 (11:51→17:10)
[2018-05-19] MEDS: PRAMIPEXOLE 0.25 MG TABLET PO SCH (20:45)
[2018-05-19] MEDS: ZOLPIDEM 5 MG TABLET PO SCH (20:46)
[2018-05-19] MEDS: AMLODIPINE 2.5 MG TABLET PO SCH (20:46)
[2018-05-19] MEDS: OMEPRAZOLE 20 MG CAPSULE PO SCH (20:46)
[2018-05-19] MEDS: LISINOPRIL 20 MG TABLET PO SCH (20:46)
[2018-05-20] MEDS: HYDROCODONE/APAP 7.5 MG/325 MG TABLET PO PRN ×2 (06:15→11:02)
[2018-05-20] MEDS: FERROUS GLUCONATE 324 MG TABLET PO SCH (08:28)
[2018-05-20] MEDS: POLYETHYL GLYCOL 3350 17gm PACKET PO SCH (08:28)
[2018-05-20] MEDS: APIXABAN 2.5 MG TABLET PO SCH ×2 (08:28→20:46)
--- NOTE | 2018-05-20 13:08 | Progress Note ---
- Date 05/20/18 Subjective: is complaining of increased pain today. She states that she has a labrum tear in her left hip, and it is starting to cause more pain. She also has pain to bilateral shoulders, but she expected this because of the therapy. She has been taking Atalissa 7.51 tablet 3 times a day as needed for quite some time, but now taking 2 of the 7.5 tablets has not been effective in controlling her pain for more than a couple of hours. She has tried Percocet in the past, but that makes her constipated and should like to avoid it if possible. Currently, her bowels have been working fairly well on Atalissa. She denies any chest pain or shortness of breath. She has been refusing hydrochlorothiazide at night because of leg cramps. She typically takes it at night at home. Objective Vital signs: Temperature 97.3 F 05/20/18 08:00 Pulse Rate 72 05/20/18 08:00 Respiratory Rate 18 05/20/18 08:00 Blood Pressure 125/53 05/20/18 08:00 Pulse Oximetry 94 05/20/18 08:00 Height/Weight/BMI: Height 1.63 m Weight 104.2 kg Body Mass Index 39.4 - Constitutional Present: no acute distress, well nourished, well developed - Routine HEENT Exam Head: Present: normocephalic Eye: Present: PERRL. Absent: conjunctival icterus, scleral injection - Routine Respiratory Exam Present: CTA bilaterally - Routine Cardiovascular Exam Present: RRR, S1, S2 - Routine Abdominal Exam Present: soft, normoactive bowel sounds, non distended, non tender - Routine Extremities Exam Present: edema (1+ bilateral lower extremities) - Routine Skin Exam Present: dry, warm, wounds (wound VAC to left lower extremity) - Routine Neurological Exam Present: alert, oriented X3, CN II-XII intact, moving all extremities, vision grossly intact, hearing grossly intact, normal speech. Absent: sensory deficit , motor deficit, altered mental status, facial asymmetry - Routine Psychiatric Exam Present: normal affect, normal thought process, cooperative Results - Labs CBC & Chem 7: 05/19/18 05:07 05/18/18 06:29 Assessment and Plan (1) Degloving injury of left lower leg Current visit: Yes Status: Acute Assessment and Plan: Assessment Status post degloving injury to the left lower leg with partial primary closure and wound VAC application on 05/12/[address] Maged Partida Right closed fifth metatarsal fracture, conservative treatment Left lateral malleolus avulsion fracture, conservative treatment Normocytic anemia/iron deficiency anemia-POA - likely acute blood loss anemia from recent injury/surgery. Thrombocytosis-POA Leukocytosis, POA Hypertension Osteoarthritis Hyperlipidemia Restless leg syndrome GERD Insomnia Migraine headaches Plan Discussed pain management. At this time, will increase Atalissa dose to 10/325, one to 2 every 4 hours when necessary. If this is ineffective, we discussed starting Percocet instead, and increasing bowel regimen. Labs reviewed from yesterday. White count has increased to 12.9. Hemoglobin is low but stable at 8.5. Platelet count also increasing, 506. Repeat tomorrow morning. Iron studies were low, continue oral replacement. Check BMP and mag tomorrow morning due to leg cramps. Continue wound care per Dr. Leung. Wound VAC is scheduled to be changed today. DVT Prophylaxis: Eliquis Resuscitation Status: Full Code - Physician Narrative Narrative: Date: 05/20/18 Time: 1305 Hospital Course Summary Disclaimer: The visit summary below is not to be considered part of the above Progress Note. Hospital Course: 05/18/18 Agree with admission to IRU for further strengthening, improvement in functional abilities, and pain control per Dr. Stevens. Dr. Leung and wound clinic have been consulted to to assist in caring for patient's wound. Blood pressures have been stable since arrival. She is currently on Norvasc, hydrochlorothiazide, lisinopril, metoprolol. She is on omeprazole for GERD, Mirapex for restless legs, Ambien for insomnia, Eliquis for DVT prophylaxis, MiraLAX for bowel motivation, and Atalissa and Tylenol for pain. Hemoglobin low on admission at 8.7. Iron, TIBC, ferritin, % sat, and stool for occult blood are pending. Hospitalist service will continue to follow patient throughout her stay. We appreciate the consult. 05/20/18 Discussed pain management. At this time, will increase Atalissa dose to 10/325, one to 2 every 4 hours when necessary. If this is ineffective, we discussed starting Percocet instead, and increasing bowel regimen. Labs reviewed from yesterday. White count has increased to 12.9. Hemoglobin is low but stable at 8.5. Platelet count also increasing, 506. Repeat tomorrow morning. Iron studies were low, continue oral replacement. Check BMP and mag tomorrow morning due to leg cramps. Continue wound care per Dr. Leung. Wound VAC is scheduled to be changed today.
[2018-05-20] MEDS: HYDROCODONE/APAP 10 MG/325 MG TABLET PO PRN ×2 (15:44→20:49)
--- NOTE | 2018-05-20 16:21 | Wound Care Progress Note ---
Wound Management - Wound Left Lower Leg Wound Type: Surgical Incision Wound Present on Admission?: Yes Degree of Burn: Full Thickness Length: 20 Width: 15 Depth: 2.5 Wound Bed Appearance: Beefy Red, Slough, Necrotic Yana Wound Appearance: [place], Bright Red, Taut, Edematous Tunneling: No Undermining: No Drainage Description: Serosanguineous Drainage Amount: Moderate Drainage Odor: No Odor Dressing Status: Changed Packing Type: Woundvac Sponge Number of Packing Pieces Removed?: 2 Number of Packing Pieces Placed?: 2 Primary Dressing: Adhesive Dressing (on top of incisions adaptic used then black foam on top of incisions.) Secondary Dressing: Trac Pad Dressing Change Date: 05/20/18 Dressing Change Time: 16:20 Dressing Change Patient Tolerance: Tolerated Well (Pt will go to the OR on 05/24 for I & D and debridment.)
[2018-05-20] MEDS: AMLODIPINE 2.5 MG TABLET PO SCH (20:46)
[2018-05-20] MEDS: OMEPRAZOLE 20 MG CAPSULE PO SCH (20:47)
[2018-05-20] MEDS: PRAMIPEXOLE 0.25 MG TABLET PO SCH (20:47)
[2018-05-20] MEDS: LISINOPRIL 20 MG TABLET PO SCH (20:47)
[2018-05-20] MEDS: ZOLPIDEM 5 MG TABLET PO SCH (20:49)
--- NOTE | 2018-05-21 07:31 | Progress Note ---
DATE: 05/20/2018 FINDINGS Mrs. Jeter was seen earlier today on rounds. Wound care staff had just remove her wound vac. The patient understandably was experiencing a moderate amount of discomfort during her vac change. VITALS: Afebrile. Normotensive. Last recorded vitals include temperature 98.3 , pulse 71, respirations 16, blood pressure 126/53, SAO2 100% on room air. HEENT: Normocephalic. Pupils are equally round and react to light and accommodation. CHEST: Clear to auscultation bilaterally. HEART: Regular rate and rhythm. Normal S1 and S2 without gallops, murmurs or clicks. EXTREMITIES: Attention was focused to the area of concern involving the left anterior tibial surface. I was quite surprised to see how extensive her degloving injury actually was. I have seen the patient previously with a wound vac in place. The patient does have a quite extensive wound involving her left anterior tibial surface. One could see that a large skin flap has been created caudally to the open wound where the skin and subcutaneous tissues are void. There is some slight vascular compromise of this larger flap but the underlying dermis appears to be intact. The epidermis has became denuded and the dermis is somewhat "purplish" in nature but is not necrotic. The open portion of the wound is perhaps 20 cm in length and about 8 cm in width. I would say approximately about 90-95% of the wound contains excellent granulation tissue. There is about 5-10% of the wound however that still contains some nonviable subcutaneous tissues. There is no evidence for purulent material within the wound bed. ASSESSMENT 62-year-old female status post fall with resultant significant degloving injury to left lower extremity and associated fractures. Overall patient doing well. PLAN Continuation of current care. Will reapply wound vac and continue with ongoing negative wound pressure therapy. It was my recommendation to the patient that on this upcoming Thursday (05/24/2018) that we would proceed in an operative setting with exploration of her wound involving the left anterior tibial surface with excisional surgical debridement of necrotic tissue. Following excisional surgical debridement would then reapply a wound vac. I do feel with the patient's significant discomfort that this would be best carried out in an operative setting under some form of anesthesia/sedation. The patient understood and agreed with the proposed plan at this time. AHMET
[2018-05-21] MEDS: HYDROCODONE/APAP 10 MG/325 MG TABLET PO PRN ×3 (08:32→20:43)
[2018-05-21] MEDS: APIXABAN 2.5 MG TABLET PO SCH ×2 (08:32→20:40)
[2018-05-21] MEDS: FERROUS GLUCONATE 324 MG TABLET PO SCH (08:32)
[2018-05-21] MEDS: POLYETHYL GLYCOL 3350 17gm PACKET PO SCH (08:33)
--- NOTE | 2018-05-21 11:43 | IRU Progress Note ---
- Subjective/Serverity of Illness Date: 05/21/18 reports difficulty with pain management when the wound VAC is changed. Otherwise she is doing reasonably well with pain. She is on chronic hydrocodone at home and is taking additional tramadol here. Perhaps as a result, she has developed worsening problem with constipation. Has not had a stool for a couple of days apparently. She is refusing MiraLAX however. She would like to try Colace and we will start this is a dose of 100 mg twice daily. She has been evaluated by Dr. Leung. His recommendation is to take her to the operating room for debridement of some devitalized tissue in the left lower extremity. This is scheduled for this coming Thursday. From a therapy standpoint she continues to improve. Performing transfers now with contact-guard assistance. She reports difficulty keeping weight off the right foot. I contacted Dr. Summers's office a couple days ago to see if she could have toe-touch weightbearing and they indicated that was not appropriate at present. Patient was advised of this. She states that she is trying the best she can but finds it difficult to keep weight off the right lower extremity. Blames this on a "torn labrum" in the left hip. Her blood pressures are reviewed and are doing well. She does have the chronic back pain for which she has used hydrocodone for some time. Repeat hemoglobin continues to show values reduced although stable. She has evidence of iron deficiency and is on supplemental iron at present. Exam Vital Signs: Temperature 98.2 F 05/21/18 07:35 Pulse Rate 71 05/21/18 07:35 Respiratory Rate 16 05/21/18 07:35 Blood Pressure 128/60 05/21/18 07:35 Pulse Oximetry 98 05/21/18 07:35 Height/Weight/BMI: Height 1.63 m Weight 104.2 kg Body Mass Index 39.4 - Constitutional Present: mild distress, well nourished, well developed, cooperative Comments: Patient was tearful this morning when she described her pain with the wound VAC change yesterday. - Routine HEENT Exam Eye: Present: EOMI ENT: Present: mucous membranes moist, dentition normal - Routine Respiratory Exam Present: CTA bilaterally. Absent: wheezes - Routine Cardiovascular Exam Present: RRR, S1, S2. Absent: murmur - Routine Abdominal Exam Present: soft, normoactive bowel sounds, non distended. Absent: tenderness - Routine Extremities Exam Present: edema (trace), normal capillary refill Comments: Left lower extremity with wound VAC in place without evidence of surrounding erythema. - Routine Skin Exam Present: dry, warm - Routine Neurological Exam Present: alert, oriented X3, CN II-XII intact - Routine Psychiatric Exam Present: normal affect, anxious (and tearful this morning) Results IRU - Labs Labs: I reviewed laboratory findings and other providers notes. IRU A/P (1) Metatarsal bone fracture Qualifiers: Encounter type: initial encounter Metatarsal bone: fifth Fracture type: closed Fracture alignment: nondisplaced Laterality: right Qualified Code(s ): S92.354A - Nondisplaced fracture of fifth metatarsal bone, right foot, initial encounter for closed fracture Current visit: Yes Status: Acute Findings a difficult to keep weight off the right foot. (2) Lateral malleolar fracture Qualifiers: Encounter type: initial encounter Fracture type: closed Fracture alignment: nondisplaced Laterality: left Qualified Code(s): S82.65XA - Nondisplaced fracture of lateral malleolus of left fibula, initial encounter for closed fracture Current visit: Yes Status: Acute (3) Hypertension Qualifiers: Hypertension type: essential hypertension Qualified Code(s): I10 - Essential (primary) hypertension Current visit: Yes Status: Chronic Blood pressures are doing well. (4) Degloving injury of left lower leg Qualifiers: Encounter type: initial encounter Qualified Code(s): S81.802A - Unspecified open wound, left lower leg, initial encounter Current visit: Yes Status: Acute Per Dr. Leung, about 90-95% of this is viable tissue with good granulation tissue. However he recommends taking her to the operating room for debridement of some non-vitalized tissue. This will be accomplished on Thursday. (5) Acute blood loss anemia Current visit: Yes Status: Acute DVT Prophylaxis: Eliquis Resuscitation Status: Full Code - Course Hospital Course: Anish Stevens MD: 05/18/18 10:49 Getting started with therapy. Pain adequately controlled. Significant anemia noted, presumably from acute blood loss. 05/19/18 11:26 Pain controlled. Has acute blood loss anemia plus iron deficiency. Has been seen by surgery. Tolerating therapy well and making progress. 05/21/18 11:46 Pain is significant with wound VAC change. Hemoglobin stable but low. Require debridement on Thursday. - Interventions to Obtain Goals PT Treatment Plan: Balance/Proprioception, Functional Activities, Gait Training , Patient/Family Education, Therapeutic Exercise OT Treatment Plan: ADL (Basic Care), Balance Training, IADL, Pt./Family Education, Ther. Exercise for ADL Goals Progress/Modifications: Patient was tearful today when she describes her pain with wound VAC changes. Otherwise pain appears to be adequately controlled. She is constipated and we will add Colace per her request. I did review the notes from Dr. Leung and have discussed with the hospitalist service. We will plan to transfer her back to outpatient observation status on Thursday evening in anticipation of the operative procedure on Thursday. This will be an interrupted stay and it is anticipated that she will be able to return if she is stable in the postoperative timeframe.
[2018-05-21] MEDS: DOCUSATE SODIUM 100 MG CAPSULE PO SCH ×2 (12:07→20:41)
[2018-05-21] MEDS: TRAMADOL 50 MG TABLET PO PRN (12:07)
--- NOTE | 2018-05-21 14:29 | IRU Team Meeting ---
IRU Team Meeting - Nursing Bladder Assistive Devices Utilized:: Bedside Commode Bladder Management Level of Assist: Modified Independent Bladder Frequency of Accidents: No accidents Bowel Assistive Devices Utilized:: Medication Bowel Management Level of Assist: Modified Independent Bowel Frequency of Accidents: No accidents Vital Signs: Vital Signs - 24 hr 05/20/18 15:15 05/20/18 20:49 05/20/18 21:38 Temperature 98.3 F 98.3 F Pulse Rate 71 88 Respiratory Rate 16 20 20 Blood Pressure 126/53 128/67 Pulse Oximetry 100 99 05/21/18 07:35 Temperature 98.2 F Pulse Rate 71 Respiratory Rate 16 Blood Pressure 128/60 Pulse Oximetry 98 Current Medications: Acetaminophen (Tylenol) 1,000 mg PO Q6HR PRN PRN Reason: Pain Hydrocodone Bitart/Acetaminophen (Royal 10/325) 1 - 2 tab PO Q4H PRN PRN Reason: Pain Last Admin: 05/21/18 14:16 Dose: 2 tab Amlodipine Besylate (Norvasc) 2.5 mg PO [facility] Last Admin: 05/20/18 20:46 Dose: 2.5 mg Apixaban (Eliquis) 2.5 mg PO BID [facility] Last Admin: 05/21/18 08:32 Dose: 2.5 mg Docusate Sodium (Colace) 100 mg PO BID [facility] Last Admin: 05/21/18 12:07 Dose: 100 mg Ferrous Gluconate (Fergon) 324 mg PO [facility] Last Admin: 05/21/18 08:32 Dose: 324 mg Hydrochlorothiazide (Microzide) 12.5 mg PO [facility] Last Admin: 05/20/18 20:47 Dose: Not Given Lisinopril (Prinivil) 20 mg PO [facility] Last Admin: 05/20/18 20:47 Dose: 20 mg Metoprolol Succinate (Toprol Xl) 100 mg PO [facility] Last Admin: 05/20/18 20:47 Dose: 100 mg Omeprazole (Prilosec) 20 mg PO [facility] Last Admin: 05/20/18 20:47 Dose: 20 mg Polyethylene Glycol (Miralax) 17 gm PO DAILY [facility] Last Admin: 05/21/18 08:33 Dose: Not Given Pramipexole Dihydrochloride (Mirapex) 0.125 mg PO [facility] Last Admin: 05/20/18 20:47 Dose: 0.125 mg Tramadol HCl (Ultram) 50 mg PO Q4H PRN PRN Reason: Pain Last Admin: 05/21/18 12:07 Dose: 50 mg Zolpidem Tartrate (Ambien) 5 mg PO HS [facility] Last Admin: 05/20/18 20:49 Dose: 5 mg Current Medical Issues: severe soft tissue injury to left leg, right foot metatarsal fracture, left lat malleolus fx, hypertension, wound care, pain management Comments: I certify that I personally led the interdisciplinary team meeting and agree with comments, barriers and goals indicated. Team meeting was held in the patient's room with the patient and the following family members present: Patient's Martir Jeter has significant pain when the wound VAC is changed. Her blood pressures have been running fairly good. Wound does not have evidence of infection at the present time. - Physical Therapy Bed, Chair, Wheelchair Transfer Assist: Stand By Assist/Supervision Ambulation Ability: Contact Guard Assistance Ambulation Distance: 26 Wheelchair Propulsion Ability: Modified Independent Wheelchair Propulsion Distance: 200 Stair Climbing Ability: Patient Unsafe/Unable Car Transfer Ability: Contact Guard Assistance Comments: Patient is improving with regard ambulatory distance and wheelchair propulsion distance. Safety awareness is improving. Working on transfers. Finds it difficult to keep weight off the right lower extremity. - Occupational Therapy Eating Ability: Independent Grooming Ability: Stand By Assist/Supervision Bathing Ability: Modified Independent Upper Body Dressing Ability: Modified Independent Lower Body Dressing Ability: Minimal Assistance Tub Transfer Assist: Stand By Assist/Supervision Toileting Assist: Modified Independent Toilet Transfer Assist: Minimal Assistance Comments: Patient is improving with regard to ADL activities. Education provided regarding nonweightbearing to right lower extremity. She is fully aware of the weightbearing status although is poorly compliant on nonweightbearing to right lower extremity at times. - Goals Physical Therapy Goals: 1. Be able to safely walk 30 feet while maintaining non- weight bearing status. 2. Be able to turn 360 degrees both directions. 3. Return home without safety concerns. Occupational Therapy Goals: OT goals 05/21/18: 1.) Lower body dressing with modified independence. 2.) Light meal preparation with modified independence. 3.) Tub transfer to extended tub bench with supervision. - Barriers to Discharge Barriers to Attaining Goals: Pain Control, Other (maintenance of weightbearing status to right lower extremity. Patient is offered educational instruction in this regard.) - Care Plan Anticipated Length of Stay (days): 3 Anticipated DC Destination: Home, Self Care, Home Health Service I have led this team conference and agree with the plan. Interventions/Goals: Patient has done well with therapy and is improving. She finds it difficult to maintain nonweightbearing status to the right lower extremity although has been advised of this on several occasions. She is cooperative with therapy and making progress. It is anticipated that she will be able to be dismissed in the next 3-4 days in order to pursue further surgical debridement.
--- NOTE | 2018-05-21 16:32 | Progress Note ---
Progress Note: I spoke with Dr. Leung's nurse. He will do surgery Thursday at 1700 hours. I put in order for NPO after 9 am (8 hours prior). We will plan to do therapy during the day Thursday.
--- NOTE | 2018-05-21 16:35 | Progress Note ---
Progress Note: Patient requires wheelchair with flip back arm rest and standard leg rests. She requires this due to the need to reduce obstacles for lateral transfers out of the wheelchair due to her bilateral lower extremity fractures.
[2018-05-21] MEDS: AMLODIPINE 2.5 MG TABLET PO SCH (20:40)
[2018-05-21] MEDS: LISINOPRIL 20 MG TABLET PO SCH (20:41)
[2018-05-21] MEDS: OMEPRAZOLE 20 MG CAPSULE PO SCH (20:42)
[2018-05-21] MEDS: PRAMIPEXOLE 0.25 MG TABLET PO SCH (20:42)
[2018-05-21] MEDS: ZOLPIDEM 5 MG TABLET PO SCH (20:43)
[2018-05-22] MEDS ORDERED: SUMATRIPTAN 25 MG TABLET PO ONE (03:45)
[2018-05-22] MEDS: HYDROCODONE/APAP 10 MG/325 MG TABLET PO PRN ×3 (05:13→20:14)
[2018-05-22] MEDS: APIXABAN 2.5 MG TABLET PO SCH ×2 (08:26→20:53)
[2018-05-22] MEDS: TRAMADOL 50 MG TABLET PO PRN (08:26)
[2018-05-22] MEDS: FERROUS GLUCONATE 324 MG TABLET PO SCH (08:27)
[2018-05-22] MEDS: DOCUSATE SODIUM 100 MG CAPSULE PO SCH (08:27)
[2018-05-22] MEDS: POLYETHYL GLYCOL 3350 17gm PACKET PO SCH (08:27)
[2018-05-22] MEDS: OMEPRAZOLE 20 MG CAPSULE PO SCH (20:51)
[2018-05-22] MEDS: PRAMIPEXOLE 0.25 MG TABLET PO SCH (20:51)
[2018-05-22] MEDS: ZOLPIDEM 5 MG TABLET PO SCH (20:53)
[2018-05-22] MEDS: LISINOPRIL 20 MG TABLET PO SCH (20:54)
[2018-05-22] MEDS: AMLODIPINE 2.5 MG TABLET PO SCH (20:54)
[2018-05-23] MEDS: DOCUSATE SODIUM 100 MG CAPSULE PO SCH ×3 (04:25→22:08)
[2018-05-23] MEDS: HYDROCODONE/APAP 10 MG/325 MG TABLET PO PRN ×3 (04:51→22:10)
[2018-05-23] MEDS: FERROUS GLUCONATE 324 MG TABLET PO SCH (08:48)
[2018-05-23] MEDS: APIXABAN 2.5 MG TABLET PO SCH ×2 (08:48→22:08)
[2018-05-23] MEDS: POLYETHYL GLYCOL 3350 17gm PACKET PO SCH (10:04)
[2018-05-23] MEDS: AMLODIPINE 2.5 MG TABLET PO SCH (22:07)
[2018-05-23] MEDS: LISINOPRIL 20 MG TABLET PO SCH (22:08)
[2018-05-23] MEDS: PRAMIPEXOLE 0.25 MG TABLET PO SCH (22:09)
[2018-05-23] MEDS: OMEPRAZOLE 20 MG CAPSULE PO SCH (22:09)
[2018-05-23] MEDS: ZOLPIDEM 5 MG TABLET PO SCH (22:12)
[2018-05-24 08:14] VITALS: BP 123/63; PULSE 74; RESP 20; TEMP 98.4; O2SAT 99
[2018-05-24] MEDS: HYDROCODONE/APAP 10 MG/325 MG TABLET PO PRN (09:06)
--- NOTE | 2018-05-24 09:49 | IRU Progress Note ---
- Subjective/Serverity of Illness Date: 05/24/18 I evaluated the patient in her room. She is extremely tearful, anxious and upset. Her main concern is that of the IV getting started. She says once it is in, she will be fine. She just greatly dreads getting the IV placed. In response to this we have discussed with the IV team. They will plan to use a local anesthetic in order to get the IV started. I communicated that to Allan today. Despite this she is extremely tearful and anxious. We had talked about giving her an Ativan or similar although surgery indicates that they would prefer not to do that in view of her needing to be awake and alert with signing consents as well as the need for anesthesia later on today. In addition, I discussed the case with YAMILETH Shah to fully communicate our plans to dismiss her from rehabilitation this afternoon, have her go directly to surgery and then likely she will stay overnight. Otherwise she seems to be doing well. Her blood pressures are reviewed and are stable. Continues to have anemia with hemoglobin around 8.5. I think this is probably a combination of iron deficiency over the long-term as well as acute blood loss from her injury. She reports her pain is about a 5 out of 10. Exam Vital Signs: Temperature 98.4 F 05/24/18 08:00 Pulse Rate 74 05/24/18 08:00 Respiratory Rate 20 05/24/18 08:00 Blood Pressure 123/63 05/24/18 08:00 Pulse Oximetry 99 05/24/18 08:00 Height/Weight/BMI: Height 1.63 m Weight 104.2 kg Body Mass Index 39.4 - Constitutional Present: moderate distress (tearful, anxious), well nourished, well developed, obese, cooperative - Routine HEENT Exam Eye: Present: EOMI ENT: Present: mucous membranes moist - Routine Respiratory Exam Present: CTA bilaterally. Absent: wheezes - Routine Cardiovascular Exam Present: RRR, S1, S2. Absent: murmur - Routine Abdominal Exam Present: soft, normoactive bowel sounds, non distended. Absent: tenderness - Routine Extremities Exam Present: no edema, normal capillary refill Comments: wound vac in place - Routine Skin Exam Present: dry, warm - Routine Neurological Exam Present: alert, oriented X3, CN II-XII intact - Routine Psychiatric Exam Present: anxious (extreme anxiety) Results IRU - Labs Labs: I have reviewed chart data IRU A/P (1) Metatarsal bone fracture Qualifiers: Encounter type: initial encounter Metatarsal bone: fifth Fracture type: closed Fracture alignment: nondisplaced Laterality: right Qualified Code(s ): S92.354A - Nondisplaced fracture of fifth metatarsal bone, right foot, initial encounter for closed fracture Current visit: Yes Status: Acute Pain seems to be adequately controlled. She is to be non-weight bearing on the right leg. (2) Lateral malleolar fracture Qualifiers: Encounter type: initial encounter Fracture type: closed Fracture alignment: nondisplaced Laterality: left Qualified Code(s): S82.65XA - Nondisplaced fracture of lateral malleolus of left fibula, initial encounter for closed fracture Current visit: Yes Status: Acute (3) Hypertension Qualifiers: Hypertension type: essential hypertension Qualified Code(s): I10 - Essential (primary) hypertension Current visit: Yes Status: Chronic BP is controlled. (4) Degloving injury of left lower leg Qualifiers: Encounter type: initial encounter Qualified Code(s): S81.802A - Unspecified open wound, left lower leg, initial encounter Current visit: Yes Status: Acute (5) Acute blood loss anemia Current visit: Yes Status: Acute On iron. DVT Prophylaxis: Eliquis Resuscitation Status: Full Code - Course Hospital Course: Anish Stevens MD: 05/18/18 10:49 Getting started with therapy. Pain adequately controlled. Significant anemia noted, presumably from acute blood loss. 05/19/18 11:26 Pain controlled. Has acute blood loss anemia plus iron deficiency. Has been seen by surgery. Tolerating therapy well and making progress. 05/21/18 11:46 Pain is significant with wound VAC change. Hemoglobin stable but low. Require debridement on Thursday. 05/24/18 09:51 Patient cooperative with therapy. Anxious regarding IV starting. We have discussed with IV therapy etc. - Interventions to Obtain Goals PT Treatment Plan: Balance/Proprioception, Functional Activities, Gait Training , Patient/Family Education, Therapeutic Exercise OT Treatment Plan: ADL (Basic Care), Balance Training, IADL, Pt./Family Education, Ther. Exercise for ADL Goals Progress/Modifications: Plans are to use local anesthetic for the IV starting today. In addition, we will do therapy until this afternoon and she will be transferred directly to surgery for the debridement procedure. I discussed with YAMILETH Shah, who will discuss with surgery concerning coverage at that point.
--- NOTE | 2018-05-24 14:59 | Discharge Summary ---
Discharge Information Date of admission: 05/17/18 16:22 Anticipated date of discharge: 05/24/18 Attending Physician: Anish Stevens MD Primary care physician: Shelbie Bansal DO Consults: 05/17/18 16:33 Physician Consult [CONS] Routine Consulting Provider: Sailaja Licona Reason For Exam: medical management Ordering Provider has Notified Loft Worker Apprentice: No 05/17/18 16:34 Wound Vein Clinic Consult [CONS] Routine Reason for consultation: wound vac managment 05/17/18 16:51 Physician Consult [CONS] Routine Consulting Provider: Guero Leung Reason For Exam: left leg wound Ordering Provider has Notified Loft Worker Apprentice: No - Discharge Diagnosis (1) Metatarsal bone fracture Status: Acute (2) Lateral malleolar fracture Status: Acute (3) Hypertension Status: Chronic (4) Degloving injury of left lower leg Status: Acute (5) Acute blood loss anemia Status: Acute 1. Fracture of shaft of right fifth metatarsal, nonweightbearing status 2. Fracture left lateral malleolus, may bear full weight 3. Iron deficiency anemia with acute blood loss anemia superimposed upon chronic anemia 4. Severe degloving injury left lower extremity with severe soft tissue injury 5. Benign essential hypertension - Laboratory Labs: 05/23/18 04:58 05/23/18 04:58 History of Present Illness HPI: Ms. Jeter fell down a couple of steps at a neighbor's home on 05/12/2018. This resulted in a severe soft tissue injury of a "degloving" nature involving the left lower extremity. In addition she suffered a closed fracture of the shaft of the right fifth metatarsal bone and a nondisplaced fracture of the left lateral malleolus. She was seen by Dr. Jung Summers and Dr. Maged Partida in [place]. The patient underwent irrigation and debridement of the left lower extremity wound as well as application of a wound VAC. She was instructed to be nonweightbearing on the right lower extremity but could bear weight on the left lower extremity. In addition she had hypertension with some evidence of recent hypotension around 95 systolic. She was admitted to the acute inpatient rehabilitation unit on 05/17/2018 for a multidisciplinary approach to her recovery as well as close wound management and monitoring. Hospital Course This is a general summary of the patient's hospital course. For more details refer to the complete medical record. The patient was admitted to acute inpatient rehabilitation on 05/17/2018. Her blood pressures are monitored carefully with initial values being a bit high at 144-154 systolic. Subsequently they came down into the 120 range and remained stable thereafter. She was followed by the hospitalist service as well as Dr. Stevens, medical instrument technician of inpatient rehabilitation. She was seen in consultation by the wound therapy nurse and Dr. Leung. Dr. Leung felt as though she would require additional debridement which was planned for after dismissal on 05/24/2018. Her hemoglobin remained low at 8.7-8.5 throughout her stay on rehabilitation. Her white count was slightly up at 11,000. However there was no evidence of any wound infection. Her blood sugars were slightly elevated at around 120 234. She does not have a known diagnosis of diabetes. Iron studies were obtained indicating serum iron 27, TIBC 399, per cent saturation 7, serum ferritin 23.4, likely consistent with iron deficiency anemia. Stool for occult blood was negative on 05/18/2018. In view of the significant iron deficiency, it is felt as though her anemia was likely acute on chronic. That is, she suffered acute blood loss anemia due to the injury as well as having had chronic iron deficiency anemia. She is on chronic hydrocodone at home making pain management a bit more difficult here. She was also started on tramadol here. Eliquis was continued from [place] at 2.5 mg twice a day. Apparently this was for DVT prophylaxis. The following levels of functional competence are to be considered preliminary information. The reader is encouraged to refer to actual therapy notes and reports for specific details. The patient was followed by physical therapy while on acute inpatient rehabilitation. At the conclusion of her stay, the following functional competencies were identified: She was able to transfer bed/chair/wheelchair with standby assist to supervision. She found it difficult to maintain her weightbearing precaution which was nonweightbearing on the right lower extremity. She is able to ambulate with a front-wheeled walker but found it difficult because of the weightbearing precaution. For this reason she will require a wheelchair with removable armrests to facilitate safe transfer in and out of the wheelchair. The patient was followed by occupational therapy while on acute inpatient rehabilitation. At the conclusion of her stay, the following functional competencies were identified: She was able to bathe with a sponge bath technique safely. Upper body dressing was performed with modified independence. She did require minimum assistance for lower body dressing. Toileting was performed at modified independent level. As noted above, Dr. Leung recommended that the patient undergo debridement of a portion of her wound. This was to be done under sedation on 05/24/2018. Following that she will likely be kept overnight and then dismissed to her home. Home health has been arranged as well as the wound VAC and the wheelchair. I did not provide any pain medications for her but the hospitalist service likely will need to do that at the time of dismissal from the outpatient observation stay. Hospital course: 05/18/18 Agree with admission to IRU for further strengthening, improvement in functional abilities, and pain control per Dr. Stevens. Dr. Leung and wound clinic have been consulted to to assist in caring for patient's wound. Blood pressures have been stable since arrival. She is currently on Norvasc, hydrochlorothiazide, lisinopril, metoprolol. She is on omeprazole for GERD, Mirapex for restless legs, Ambien for insomnia, Eliquis for DVT prophylaxis, MiraLAX for bowel motivation, and [place] and Tylenol for pain. Hemoglobin low on admission at 8.7. Iron, TIBC, ferritin, % sat, and stool for occult blood are pending. Hospitalist service will continue to follow patient throughout her stay. We appreciate the consult. 05/20/18 Discussed pain management. At this time, will increase [place] dose to 10/325, one to 2 every 4 hours when necessary. If this is ineffective, we discussed starting Percocet instead, and increasing bowel regimen. Labs reviewed from yesterday. White count has increased to 12.9. Hemoglobin is low but stable at 8.5. Platelet count also increasing, 506. Repeat tomorrow morning. Iron studies were low, continue oral replacement. Check BMP and mag tomorrow morning due to leg cramps. Continue wound care per Dr. Leung. Wound VAC is scheduled to be changed today. Time spent with patient: greater than 35 minutes Resuscitation Status: Full Code Discharge Plan - Med Rec/Dispo Referrals/Follow Up: [facility], Trauma Clinic [Other] - 2 Weeks (f/u 1-2 weeks post Hosp. discharge. Wound check. ) Jung Summers MD [Physician] - 3 Weeks (Dr. Darek Summers f/u 2-3 weeks, post hospital d/c [facility] [address] [place] [address] Referral from previous Hosp. stay) Shelbie Bansal DO [Primary Care Provider] - (f/u 1-2 weeks after discharge.) Yasmeen Instructions: Wound Healing and Your Diet (GEN), Fall Prevention (GEN), Non Weight Bearing Activity (GEN) Prescriptions: New Zolpidem [Ambien] 5 mg PO HS tab Tramadol [Ultram] 50 mg PO Q4H PRN tab PRN Reason: Pain Hydrocodone/APAP 10/325 [[place] 10/325] 1 - 2 tab PO Q4H PRN tab PRN Reason: Pain Ferrous Gluconate [Fergon] 324 mg PO WB tab Docusate Sodium [Colace] 100 mg PO BID cap Continue PEG 3350 17gm PACKET [Miralax] 17 gm PO DAILY Amlodipine [Norvasc] 2.5 mg PO HS Acetaminophen [Acetaminophen Extra Strength] 1,000 mg PO Q6HR PRN PRN Reason: Pain Metoprolol Succinate [Toprol Xl] 100 mg PO HS Lisinopril [Prinivil] 20 mg PO HS Rizatriptan Benzoate [Maxalt] 10 mg PO DAILY PRN PRN Reason: Headache Omeprazole/Sodium Bicarbonate [Zegerid 20 mg Capsule] 1 cap PO HS #0 Pramipexole Di-HCl [Mirapex] 0.125 mg PO HS hydrochlorothiazide 12.5 mg tablet 12.5 mg PO HS Discontinued Rizatriptan Benzoate [Maxalt] 10 mg PO PRN #0 - Disposition 02 Acute Care Hosp, Other - Dismissal Complete Discharge Instructions are:: Complete
--- NOTE | 2018-05-24 15:05 | Letter to Referring Physician ---
Dear Dr. Bansal, This is a brief note to bring you up-to-date on the status of Betty Jeter and her stay on the acute inpatient rehabilitation unit at [facility]. As you are likely aware, this patient was admitted to [facility] on 05/12/18 for treatment of a severe degloving injury involving the left lower extremity as well as fracture of the right fifth metatarsal and fracture of the left lateral malleolus. She was seen by Dr. Jung Summers and Dr. Maged Partida from general surgery at that location. She underwent debridement of the severe soft tissue injury involving the left lower extremity and placement of a wound VAC. She was made nonweightbearing on the right lower extremity but full weightbearing on the left lower extremity (the side with the degloving injury). No operative intervention was recommended for the fractures. The patient was stabilized while on the acute level and admitted to inpatient rehabilitation unit at [facility] on May 17, 2018. While on inpatient rehabilitation, this patient was seen by occupational therapy and physical therapy and improved overall in their functional ability. We also monitored and managed the patient's hypertension and acute blood loss anemia superimposed upon chronic anemia while on Acute Rehab. Please see a copy of the history and physical examination as well as discharge summary faxed separately for further details. Her hemoglobin remained stable at around 8.5 g percent. Iron studies were consistent with iron deficiency anemia and therefore it is likely she has suffered acute blood loss anemia superimposed upon some chronic iron deficiency anemia. We did not pursue a GI workup although stool for Hemoccult was negative 1 here on rehabilitation. She may require repeat evaluation to see if there is another reason for her iron deficiency anemia as well as follow-up of her blood count. In addition we did note that her blood sugars are running just slightly elevated at 120-130. We did not do an A1c so this will need to be followed up as well. She was dismissed from acute inpatient rehabilitation after having met her goals on 05/24/2018. She is taken to surgery this afternoon by Dr. Leung for further debridement of the left lower extremity wound. Following that she will stay as an outpatient overnight likely and then be dismissed to her home on 05/25/2018. While she is able to ambulate, she finds it difficult to keep weight off the right lower extremity and for this reason a wheelchair is recommended and obtained for her. She will also go home with a wound VAC and with home health to assist. I did not specifically prescribe any pain medications for her to go home with but likely the hospitalist service will do that upon her dismissal. Thank you for allowing us to be involved in this nice patient's care. Please contact me directly should you have any questions regarding their stay on the inpatient rehabilitation unit. Sincerely, Anish Stevens M.D.
== END 2018-05-24 14:44 | disposition short-term general hospital (02) | DRG 560 ==
PROVIDERS: ADMIT Internal Medicine; ATTEND Internal Medicine

== ENCOUNTER 2018-05-24 14:43 | Inpatient (IN) ==
[~2018-05-24 14:43] MED LIST: CEFAZOLIN 1 G INJECTION IVP ONE; LIDOCAINE 1% (10mg/ml) 2mL INJ PF SDV ID ONE; SALINE FLUSH 10ml SYRINGE IV PRN
--- OUTSIDE RECORDS SUMMARY | 2018-05-24 15:34 | External Medical Summary | Continuity of Care Document ---
:1955 Author Organization [facility] Allergies Active Description Code Type Severity Reaction Onset Reported/ Identified Relationship Clinical to Patient Status Yes Acetaminophe aceta AdvRe Unknown ITCH 06/04/2014 n minop ac hen Yes Adhesive adhes Aller Unknown ITCHING, 06/04/2014 rashaun gy RASH Yes Fibrate Choli Aller Unknown MUSCLE 06/04/2014 Anti-Lipidem ne gy CRAMPS ics Fenof ibrat e Yes Opioids - oxyco AdvRe Unknown ITCH 06/04/2014 Morphine done ac Analogues HCl Yes Salicylates diclo Aller Unknown STOMACH 06/04/2014 fenac gy DISTRESS potas sium Yes Sulfa Sulfa Aller Unknown N&V 12/23/2017 (Sulfonamide (Sulf gy Antibiotics) onami de Antib iotic s) Medications Medication Packaging Start Date Stop Date Route Dosage Sig Toprol Xl 09/04/2009 PO 100 mg DAILY 09/04/2009 PO 25 mg Hydrochlorothiazide DAILY Lisinopril 09/04/2009 PO 20 mg DAILY Zegerid 20 09/20/2012 PO 1 each mg Capsule HS Maxalt 09/20/2012 PO 10 mg PRN Ativan 09/23/2012 PO 1 mg PRN 06/04/2014 PO 5 mg Cyclobenzaprine HCl Q8H 10/26/2017 PO 12.5 mg Hydrochlorothiazide HS Norvasc 12/23/2017 PO 5 mg DAILY Miralax 05/17/2018 PO 17 gm DAILY Prinivil 05/17/2018 PO 20 mg HS Toprol Xl 05/17/2018 PO 100 mg HS Norvasc 05/17/2018 PO 2.5 mg HS 05/17/2018 PO 500 mg Acetaminophen Extra Q6HR Strength Mirapex 05/17/2018 PO 0.125 mg HS Maxalt 05/17/2018 PO 10 mg DAILY Colace 05/24/2018 PO 100 mg BID Ultram 05/24/2018 PO 50 mg Q4H Ambien 05/24/2018 PO 5 mg HS Fergon 05/24/2018 PO 324 mg WB Perry 10/325 05/24/2018 PO 1 tab Q4H Problems Date Dx Attending Type Code Diagnosis Diagnosed By Coded 12/23/2017 M19.012 Primary NICOLAS ROACH MD osteoarthritis, left S shoulder 05/17/2018 Rodney GARCES, Anish D47.3 Essential Rodney GARCES, (hemorrhagic) Anish thrombocythemia 05/17/2018 Anish Stevens MD D62 Acute posthemorrhagic Rodney GARCES, anemia Anish 05/17/2018 Anish Stevens MD E66.9 Obesity, unspecified Rodney GARCES, Anish 05/17/2018 Rodney GARCES, Anish E78.5 Hyperlipidemia, Rodney GARCES, unspecified Anish 05/17/2018 Anish Stevens MD G25.81 Restless legs Rodney GARCES, syndrome Anish 05/17/2018 Anish Stevens MD G47.00 Insomnia, unspecarcadio Stevens MD, Anish 05/17/2018 Anish Stevens MD I10 Essential (primary) Rodney GARCES, hypertension Anish 05/17/2018 Anish Stevens MD K21.9 Gastro-esophageal Rodney GARCES, reflux disease Anish without esophagitis 05/17/2018 Anish Stevens MD M54.89 Other dorsalgia Rodney GARCES, Anish 05/17/2018 Anish Stevens MD S81.802D Unspecified open Rodney GARCES, wound, left lower Anish leg, subsequent encounter 05/17/2018 Anish Stevens MD S82.65XD Nondisplaced fracture Rodney GARCES, of lateral malleolus Anish of left fibula, subsequent encounter for closed fracture with routine healing 05/17/2018 Anish Stevens MD S92.351D Displaced fracture of Rodney GARCES, fifth metatarsal Anish bone, right foot, subsequent encounter for fracture with routine healing 05/17/2018 Anish Stevens MD W10.8XXD Fall (on) (from) Rodney GARCES, ester stairs and Anish steps, subsequent encounter 05/17/2018 Anish Stevens MD Z68.39 Body mass index (BMI) Rodney GARCES, 39.0-39.9, adult Anish 05/17/2018 Anish Stevens MD Z91.81 History of falling Rodney GARCES, Anish 05/17/2018 Anish Stevens MD Z98.890 Other specified Rodney GARCES, postprocedural states Anish Procedures There is no data. Results Test Result Range L200.1880 - 06/13/16 15:09 PROBNP 116 PG/ML 0-175 L100.0050 - 10/27/16 16:39 WBC - WHITE BLOOD COUNT 14.0 T/MM3 4.5-11.0 RED BLOOD COUNT 4.64 M/MM3 4.00-5.20 HGB - HEMOGLOBIN 9.4 GM/DL 12-16 HCT - HEMATOCRIT 33.8 % 36-46 MEAN CORPUSCULAR VOLUME 72.8 UM3 80-100 MEAN CORPUSCULAR HGB 20.3 UUG 26-34 MEAN CORPUSCULAR HGB CONC(MCHC 27.8 GM/DL 31-37 RDW STANDARD DEVIATION 44.9 FL 36.9-50.2 PLT - PLATELET COUNT 531 T/MM3 130-400 MEAN PLATELET VOLUME 10.4 UM3 9.4-12.4 NEUTROPHILS % (AUTO) 71.6 % 33-66 LYMPHOCYTES % (AUTO) 19.5 % 23-45 MONOCYTES % (AUTO) 6.3 % 0-9.0 EOSINOPHILS % (AUTO) 1.5 % 0-4 BASOPHILS % (AUTO) 0.7 % 0-2 IMMATURE GRANULOCYTE % (AUTO) 0.4 % 0.0-0.5 NEUTROPHILS # (AUTO) 10.0 T/MM3 1.8-7.7 LYMPHOCYTES # (AUTO) 2.7 T/MM3 1-4.8 MONOCYTES # (AUTO) 0.9 T/MM3 0-0.8 EOSINOPHILS # (AUTO) 0.2 T/MM3 0-0.5 BASOPHILS # (AUTO) 0.1 T/MM3 0-0.2 IMMATURE GRANULOCYTE # (AUTO) 0.05 T/MM3 0.00-0.03 L700.8990 - 10/27/16 16:39 LPERSMEAR SENT FOR REVIEW L750.9122 - 10/27/16 16:39 TRANSFERRIN - AMS 390 mg/dL 192-382 L200.2100 - 10/27/16 16:39 IRON 35 UG/DL 37-170 TOTAL IRON BINDING CAPACITY 489 UG/DL 261-497 IRON % SAT (TRANSF %SAT)(CALC) 7 % 9-55 L200.2350 - 10/27/16 16:39 FERRITIN 12.0 NG/ML 11-264 L200.2359 - 10/27/16 16:39 VITAMIN B12 387 PG/ML 239-931 L200.2365 - 10/27/16 16:39 FOLATE 12.1 NG/ML 2.76-20 L200.0050 - 05/18/18 06:29 FUNGAL CULTURE. 0.7 mg/dL 0.7-1.2 FUNGAL CULTURE, BLOOD. 31 RATIO 6-26 NA - Sodium 141 MEQ/L 136-146 Potassium 4.4 MEQ/L 3.6-5 Chloride 104 MEQ/L 98-107 CO2 - Carbon Dioxide 30 MEQ/L 22-30 Anion Gap 7 meq/L 5-15 BUN - Blood Urea Nitrogen 22.0 MG/DL 7-17 Glomerular Filtration Rate 85 NRG Glucose 134 MG/DL 65-110 Osmolality,Calculated 276 MOSM/KG 261-280 Calcium 8.9 MG/DL 8.4-10.2 LICTERUS < 2 0-7 LHEMOLYSIS < 15 0-25 LTURBIDITY < 20 0-20 L100.0050 - 05/18/18 06:29 WBC - WHITE BLOOD COUNT 11.9 T/MM3 4.5-11.0 RED BLOOD COUNT 3.23 M/MM3 4.00-5.20 HGB - HEMOGLOBIN 8.7 GM/DL 12-16 HCT - HEMATOCRIT 29.0 % 36-46 MEAN CORPUSCULAR VOLUME 89.8 UM3 80-100 MEAN CORPUSCULAR HGB 26.9 UUG 26-34 MEAN CORPUSCULAR HGB CONC(MCHC 30.0 GM/DL 31-37 RDW STANDARD DEVIATION 41.9 FL 36.9-50.2 PLT - PLATELET COUNT 498 T/MM3 130-400 MEAN PLATELET VOLUME 9.8 UM3 9.4-12.4 NEUTROPHILS % (AUTO) 69.8 % 33-66 LYMPHOCYTES % (AUTO) 18.3 % 23-45 MONOCYTES % (AUTO) 8.4 % 0-9.0 EOSINOPHILS % (AUTO) 3.0 % 0-4 BASOPHILS % (AUTO) 0.3 % 0-2 IMMATURE GRANULOCYTE % (AUTO) 0.2 % 0.0-0.5 NEUTROPHILS # (AUTO) 8.3 T/MM3 1.8-7.7 LYMPHOCYTES # (AUTO) 2.2 T/MM3 1-4.8 MONOCYTES # (AUTO) 1.0 T/MM3 0-0.8 EOSINOPHILS # (AUTO) 0.4 T/MM3 0-0.5 BASOPHILS # (AUTO) 0.0 T/MM3 0-0.2 IMMATURE GRANULOCYTE # (AUTO) 0.02 T/MM3 0.00-0.03 L200.2100 - 05/18/18 11:07 Iron - FE - Batch 27 ug/dL 37-170 TIBC - Total Iron Binding Cap 399 ug/dL 261-497 % Iron Saturation (%Trans Sat) 7 % 9-55 L200.2350 - 05/18/18 11:07 Ferritin 23.4 ng/mL 11-264 L600.5964 - 05/18/18 18:53 Occult Blood Result, Stool NEGATIVE NR L100.0050 - 05/19/18 05:07 WBC - WHITE BLOOD COUNT 12.9 T/MM3 4.5-11.0 RED BLOOD COUNT 3.17 M/MM3 4.00-5.20 HGB - HEMOGLOBIN 8.5 GM/DL 12-16 HCT - HEMATOCRIT 28.3 % 36-46 MEAN CORPUSCULAR VOLUME 89.3 UM3 80-100 MEAN CORPUSCULAR HGB 26.8 UUG 26-34 MEAN CORPUSCULAR HGB CONC(MCHC 30.0 GM/DL 31-37 RDW STANDARD DEVIATION 41.6 FL 36.9-50.2 PLT - PLATELET COUNT 506 T/MM3 130-400 MEAN PLATELET VOLUME 9.8 UM3 9.4-12.4 NEUTROPHILS % (AUTO) 72.1 % 33-66 LYMPHOCYTES % (AUTO) 16.5 % 23-45 MONOCYTES % (AUTO) 8.3 % 0-9.0 EOSINOPHILS % (AUTO) 2.4 % 0-4 BASOPHILS % (AUTO) 0.4 % 0-2 IMMATURE GRANULOCYTE % (AUTO) 0.3 % 0.0-0.5 NEUTROPHILS # (AUTO) 9.3 T/MM3 1.8-7.7 LYMPHOCYTES # (AUTO) 2.1 T/MM3 1-4.8 MONOCYTES # (AUTO) 1.1 T/MM3 0-0.8 EOSINOPHILS # (AUTO) 0.3 T/MM3 0-0.5 BASOPHILS # (AUTO) 0.1 T/MM3 0-0.2 IMMATURE GRANULOCYTE # (AUTO) 0.04 T/MM3 0.00-0.03 L200.0050 - 05/21/18 04:36 FUNGAL CULTURE. 0.7 mg/dL 0.7-1.2 FUNGAL CULTURE, BLOOD. 30 RATIO 6-26 NA - Sodium 142 MEQ/L 136-146 Potassium 4.3 MEQ/L 3.6-5 Chloride 105 MEQ/L 98-107 CO2 - Carbon Dioxide 30 MEQ/L 22-30 Anion Gap 7 meq/L 5-15 BUN - Blood Urea Nitrogen 21.0 MG/DL 7-17 Glomerular Filtration Rate 85 NRG Glucose 120 MG/DL 65-110 Osmolality,Calculated 277 MOSM/KG 261-280 Calcium 8.8 MG/DL 8.4-10.2 LICTERUS < 2 0-7 LHEMOLYSIS < 15 0-25 LTURBIDITY < 20 0-20 L200.1999 - 05/21/18 04:36 MAG - Magnesium 2.2 MG/DL 1.6-2.3 L100.49 - 05/21/18 04:36 WBC - WHITE BLOOD COUNT 11.4 T/MM3 4.5-11.0 RED BLOOD COUNT 3.14 M/MM3 4.00-5.20 HGB - HEMOGLOBIN 8.4 GM/DL 12-16 HCT - HEMATOCRIT 28.1 % 36-46 MEAN CORPUSCULAR VOLUME 89.5 UM3 80-100 MEAN CORPUSCULAR HGB 26.8 UUG 26-34 MEAN CORPUSCULAR HGB CONC(MCHC 29.9 GM/DL 31-37 RDW STANDARD DEVIATION 42.3 FL 36.9-50.2 PLT - PLATELET COUNT 568 T/MM3 130-400 MEAN PLATELET VOLUME 9.9 UM3 9.4-12.4 NEUTROPHILS % (AUTO) 68.2 % 33-66 LYMPHOCYTES % (AUTO) 19.1 % 23-45 MONOCYTES % (AUTO) 9.5 % 0-9.0 EOSINOPHILS % (AUTO) 2.3 % 0-4 BASOPHILS % (AUTO) 0.7 % 0-2 IMMATURE GRANULOCYTE % (AUTO) 0.2 % 0.0-0.5 NEUTROPHILS # (AUTO) 7.8 T/MM3 1.8-7.7 LYMPHOCYTES # (AUTO) 2.2 T/MM3 1-4.8 MONOCYTES # (AUTO) 1.1 T/MM3 0-0.8 EOSINOPHILS # (AUTO) 0.3 T/MM3 0-0.5 BASOPHILS # (AUTO) 0.1 T/MM3 0-0.2 IMMATURE GRANULOCYTE # (AUTO) 0.02 T/MM3 0.00-0.03 L100.0 - 05/22/18 05:15 WBC - WHITE BLOOD COUNT 12.9 T/MM3 4.5-11.0 RED BLOOD COUNT 3.46 M/MM3 4.00-5.20 HGB - HEMOGLOBIN 9.2 GM/DL 12-16 HCT - HEMATOCRIT 30.6 % 36-46 MEAN CORPUSCULAR VOLUME 88.4 UM3 80-100 MEAN CORPUSCULAR HGB 26.6 UUG 26-34 MEAN CORPUSCULAR HGB CONC(MCHC 30.1 GM/DL 31-37 RDW STANDARD DEVIATION 42.3 FL 36.9-50.2 PLT - PLATELET COUNT 626 T/MM3 130-400 MEAN PLATELET VOLUME 9.5 UM3 9.4-12.4 NEUTROPHILS % (AUTO) 70.0 % 33-66 LYMPHOCYTES % (AUTO) 18.9 % 23-45 MONOCYTES % (AUTO) 8.4 % 0-9.0 EOSINOPHILS % (AUTO) 2.0 % 0-4 BASOPHILS % (AUTO) 0.5 % 0-2 IMMATURE GRANULOCYTE % (AUTO) 0.2 % 0.0-0.5 NEUTROPHILS # (AUTO) 9.0 T/MM3 1.8-7.7 LYMPHOCYTES # (AUTO) 2.4 T/MM3 1-4.8 MONOCYTES # (AUTO) 1.1 T/MM3 0-0.8 EOSINOPHILS # (AUTO) 0.3 T/MM3 0-0.5 BASOPHILS # (AUTO) 0.1 T/MM3 0-0.2 IMMATURE GRANULOCYTE # (AUTO) 0.03 T/MM3 0.00-0.03 L200.0050 - 05/22/18 05:15 FUNGAL CULTURE. 0.6 mg/dL 0.7-1.2 FUNGAL CULTURE, BLOOD. 30 RATIO 6-26 NA - Sodium 141 MEQ/L 136-146 Potassium 4.4 MEQ/L 3.6-5 Chloride 104 MEQ/L 98-107 CO2 - Carbon Dioxide 28 MEQ/L 22-30 Anion Gap 9 meq/L 5-15 BUN - Blood Urea Nitrogen 18.0 MG/DL 7-17 Glomerular Filtration Rate 101 NRG Glucose 124 MG/DL 65-110 Osmolality,Calculated 274 MOSM/KG 261-280 Calcium 9.2 MG/DL 8.4-10.2 LICTERUS < 2 0-7 LHEMOLYSIS < 15 0-25 LTURBIDITY < 20 0-20 L100.49 - 05/23/18 04:58 WBC - WHITE BLOOD COUNT 11.4 T/MM3 4.5-11.0 RED BLOOD COUNT 3.19 M/MM3 4.00-5.20 HGB - HEMOGLOBIN 8.5 GM/DL 12-16 HCT - HEMATOCRIT 28.3 % 36-46 MEAN CORPUSCULAR VOLUME 88.7 UM3 80-100 MEAN CORPUSCULAR HGB 26.6 UUG 26-34 MEAN CORPUSCULAR HGB CONC(MCHC 30.0 GM/DL 31-37 RDW STANDARD DEVIATION 42.3 FL 36.9-50.2 PLT - PLATELET COUNT 594 T/MM3 130-400 MEAN PLATELET VOLUME 9.5 UM3 9.4-12.4 NEUTROPHILS % (AUTO) 70.4 % 33-66 LYMPHOCYTES % (AUTO) 19.0 % 23-45 MONOCYTES % (AUTO) 8.1 % 0-9.0 EOSINOPHILS % (AUTO) 1.9 % 0-4 BASOPHILS % (AUTO) 0.4 % 0-2 IMMATURE GRANULOCYTE % (AUTO) 0.2 % 0.0-0.5 NEUTROPHILS # (AUTO) 8.0 T/MM3 1.8-7.7 LYMPHOCYTES # (AUTO) 2.2 T/MM3 1-4.8 MONOCYTES # (AUTO) 0.9 T/MM3 0-0.8 EOSINOPHILS # (AUTO) 0.2 T/MM3 0-0.5 BASOPHILS # (AUTO) 0.1 T/MM3 0-0.2 IMMATURE GRANULOCYTE # (AUTO) 0.02 T/MM3 0.00-0.03 L200.49 - 05/23/18 04:58 FUNGAL CULTURE. 0.7 mg/dL 0.7-1.2 FUNGAL CULTURE, BLOOD. 29 RATIO 6-26 NA - Sodium 142 MEQ/L 136-146 Potassium 4.4 MEQ/L 3.6-5 Chloride 104 MEQ/L 98-107 CO2 - Carbon Dioxide 30 MEQ/L 22-30 Anion Gap 8 meq/L 5-15 BUN - Blood Urea Nitrogen 20.0 MG/DL 7-17 Glomerular Filtration Rate 85 NRG Glucose 125 MG/DL 65-110 Osmolality,Calculated 277 MOSM/KG 261-280 Calcium 9.1 MG/DL 8.4-10.2 LICTERUS < 2 0-7 LHEMOLYSIS < 15 0-25 LTURBIDITY < 20 0-20 Encounters ACCT Visit Discharge Status Pt. Type Provider Facility Loc./Unit Complaint No. Date/Time [id number] 12/23/2017 12/23/2017 [facility] VIRA Gipson Lt [id number] 14:35:00 23:59:00 ALEXANDRA [facility] [id number] 10/26/2017 10/26/2017 [facility]patient VIRA Gipson Lt Hip [id number] 07:53:00 23:59:00 PAALEXANDRA [facility] [id number] 04/30/2017 04/30/2017 [facility] Outpatient NAVEED EUGENIO [id number] 09:02:00 09:03:00 MATTIE FLORES [id number] 10/27/2016 10/27/2016 [facility] Outpatient NAVEED Gipson LAB [id number] 16:20:00 23:59:59 DO [facility] [id number] 06/13/2016 06/13/2016 [facility] Outpatient NAVEED Gipson [facility] [id number] 14:26:00 23:59:59 DO [facility] [id number] 05/21/2018 Document [id number] 16:29:00 Registration [id number] 05/17/2018 Document [id number] 22:00:00 Registration [id number] 05/17/2018 [facility] Inpatient Rodney Gipson Bilateral [id number] 16:22:00 Anish GARCES [facility] extremity fractures [id number] 06/06/2014 Document [id number] 13:13:00 Registration
[2018-05-24] MEDS: LR 1,000 ML IV SCH ×3 (15:37→21:18)
[2018-05-24] MEDS ORDERED: FentaNYL 100 MCG/2 ML INJECTION ONE ×2 (17:24→18:28)
[2018-05-24] MEDS ORDERED: MIDAZOLAM 2mg/2ml INJECTION ONE (17:24)
[2018-05-24] MEDS ORDERED: PROPOFOL 500 MG/50 ML VIAL ONE ×2 (17:27→17:58)
--- NOTE | 2018-05-24 18:04 | Anesthesia Preoperative Report ---
Anesthesia Preoperative Record - Date and Time Date: 05/24/18 Preoperative Diagnosis: Surgical Debridement Lt Lower Leg NPO Since Date: 05/24/18 NPO Since Time: 08:00 Allergies/Adverse Reactions: Allergies Allergy/AdvReac Type Severity Reaction Status Date / Time hydrocodone Allergy Mild Itching Verified 05/24/18 14:59 adhesive Allergy Unknown ITCHING, Verified 12/23/17 14:53 RASH Sulfa (Sulfonamide Allergy Unknown N&V Verified 12/23/17 14:53 Antibiotics) Choline Fenofibrate Allergy Unknown MUSCLE Uncoded 12/23/17 14:53 CRAMPS diclofenac potassium Allergy Unknown STOMACH Uncoded 12/23/17 14:53 DISTRESS oxycodone HCl AdvReac Unknown ITCH Uncoded 12/23/17 14:53 statins AdvReac Uncoded 12/23/17 14:53 - Vital Signs Vital Signs: Temperature 98.4 F 05/24/18 15:07 Pulse Rate 72 05/24/18 15:27 Respiratory Rate 16 05/24/18 15:07 Blood Pressure 146/67 H 05/24/18 15:07 Pulse Oximetry 91 05/24/18 15:07 Height and Weight: Height 5 ft 4 in Weight 105 kg Body Mass Index 39.7 - Medications Inpatient Medications: Current Medications Lactated Ringer's (Lactated Ringers) 1,000 mls @ 50 mls/hr IV .Q20H ALEXIS Last Admin: 05/24/18 15:37 Dose: 50 mls/hr Sodium Chloride (Iv Flush) 10 ml IV PRN PRN PRN Reason: Flushing Home Medications: Home Medications Medication Instructions Recorded Confirmed Type Omeprazole/Sodium Bicarbonate 1 cap PO HS #0 09/20/12 05/24/18 History [Zegerid 20 mg Capsule] hydrochlorothiazide 12.5 mg tablet 12.5 mg PO HS 10/26/17 05/24/18 History Acetaminophen [Acetaminophen Extra 1,000 mg PO Q6HR PRN 05/17/18 05/24/18 History Strength] Amlodipine [Norvasc] 2.5 mg PO HS 05/17/18 05/24/18 History Lisinopril [Prinivil] 20 mg PO HS 05/17/18 05/24/18 History Metoprolol Succinate [Toprol Xl] 100 mg PO HS 05/17/18 05/24/18 History PEG 3350 17gm PACKET [Miralax] 17 gm PO DAILY 05/17/18 05/24/18 History Pramipexole Di-HCl [Mirapex] 0.125 mg PO HS 05/17/18 05/24/18 History Rizatriptan Benzoate [Maxalt] 10 mg PO DAILY PRN 05/17/18 05/24/18 History Docusate Sodium [Colace] 100 mg PO BID cap 05/24/18 05/24/18 Rx Ferrous Gluconate [Fergon] 324 mg PO WB tab 05/24/18 05/24/18 Rx Hydrocodone/APAP 10/325 [[place] 1 - 2 tab PO Q4H PRN tab 05/24/18 05/24/18 Rx 10/325] Tramadol [Ultram] 50 mg PO Q4H PRN tab 05/24/18 05/24/18 Rx Zolpidem [Ambien] 5 mg PO HS tab 05/24/18 05/24/18 Rx Is Patient on Beta Eusebio?: Yes - Medical History Respiratory: DENIES: Sleep Apnea Cardiovascular: Reports: Hypertension, High Cholesterol Gastrointestional: Reports: Gastroesophageal Reflux Disease, Hiatal Hernia Neuro/Musculoskeletal: Reports: Back Problems (HERNIATED DISC IN BACK) - Surgical History HEENT Surgeries: Reports: Tonsillectomy Cardiac Surgeries/Treatments: Reports: Cardiac Catheterization (2008- ) GI Surgery/Treatments: Reports: Colonoscopy, EGD Musculoskeletal Surgery/Tx: Reports: Shoulder Arthroscopy (7 anchors R shoulder , PIP joint remove L toe x2), Total Knee Replacement (Rt) Reproductive Surgery/Treatment: Reports: Section, Tubal Ligation Anesthesia Reactions: None Hx Family Anesthesia Reaction: No History of Motion Sickness: No - Social History Smoking Status: Never smoker Hx Chewing Tobacco Use: No Second Hand Exposure: No Substance Use Type: does not use Alcohol Intake: never Alcohol Intake Frequency: does not drink - Pertinent Findings EKG: Sinus Rhythm - Physical Exam Respiratory Exam: Present: lungs clear, bilateral breath sounds equal Cardiovascular Exam: Present: regular rate and rhythm - Airway Assessment Mallampati Score: II TMD: 3 Fingerbreadths Neck Extension: good Overall Assessment: may be difficult mask vent, may be difficult intubation - ASA ASA Score: 3 - Plan Anesthesia: General TIVA - Discussion Discussion: Discussed risks/options/alternatives of anesthesia and questions answered. Patient consents. Nursing pain assessment noted. Present for Discussion: spouse Attestation Statement: Prior to the delivery of any anesthetic medication, I examined the patient, developed the plan, obtained the patient's consent and discussed the risk and benefits of the procedure with the patient/guardian. - Additional Information Seen by Anesthesia: Yes
--- NOTE | 2018-05-24 18:22 | General Surgery Procedure Note ---
Date of Procedure: 05/24/18 Surgeon: Xochitl Conference Manager: Basil Costa APRN Postoperative Diagnosis: extensive necrosis of left lower leg soft tissue. Procedure: surgical debridement of skin, subcutaneous tissue and fascia left lower leg. Estimated Blood Loss: See Anesthesia Record.
[2018-05-24] MEDS: MORPHINE SULFATE 10mg/ml VIAL IVP PRN ×2 (18:50→19:01)
[2018-05-24] MEDS ORDERED: RIZATRIPTAN 5 MG TABLET PO PRN (19:49)
[2018-05-24 20:28] VITALS: BMI 40.6
[2018-05-24] MEDS ORDERED: PRAMIPEXOLE DI HCL 0.125 MG PO SCH (21:00)
[2018-05-24] MEDS: AMLODIPINE 2.5 MG TABLET PO SCH (22:07)
[2018-05-24] MEDS: ZOLPIDEM 5 MG TABLET PO SCH (22:07)
[2018-05-24] MEDS: DOCUSATE SODIUM 100 MG CAPSULE PO SCH (22:07)
[2018-05-24] MEDS: LISINOPRIL 20 MG TABLET PO SCH (22:07)
[2018-05-24] MEDS: PRAMIPEXOLE 0.25 MG TABLET PO SCH (22:08)
[2018-05-24] MEDS: MORPHINE SULFATE 4mg INJECTION IVP PRN (22:21)
[2018-05-25] MEDS: CEFAZOLIN 1 G in NS 100 ML IV SCH ×3 (00:04→16:59)
[2018-05-25] MEDS: MORPHINE SULFATE 4mg INJECTION IVP PRN (03:19)
[2018-05-25] MEDS: LR 1,000 ML IV SCH ×2 (04:38→15:04)
[2018-05-25] MEDS: OMEPRAZOLE 20 MG CAPSULE PO SCH ×2 (06:54→20:59)
--- NOTE | 2018-05-25 08:29 | Operative Note ---
DATE OF SERVICE 05/24/2018 SURGEON Guero Leung MD COMBINATION MACHINE TOOL OPERATOR Basil Costa APRN PREOPERATIVE DIAGNOSIS Personal history for traumatic wound involving left lower extremity. Patient with extensive "degloving injury" with associated fractures involving lower extremities. POSTOPERATIVE DIAGNOSIS Personal history for traumatic wound involving left lower extremity. Patient with extensive "degloving injury" with associated fractures involving lower extremities, flap necrosis of skin and subcutaneous tissues. PROCEDURE Excisional surgical debridement of necrotic skin and subcutaneous tissues as well as a portion of fascia. Area debrided 18 cm x 8 cm. ANESTHESIA TIVA BRIEF HISTORY/INDICATIONS Mrs. Jeter is a 62-year-old female who recently had fallen, resulting in an extensive degloving injury to her left lower extremity. Patient also had some associated fractures to her lower extremity. The patient was transferred to our facility for rehab. I saw the patient towards the end of last week in our inpatient rehab facility. She did have quite extensive wound involving her left anterior tibial surface. One could see some necrotic tissue within the wound bed. Distal to the wound bed, the skin was somewhat denuded and "purplish " in nature which I was hopeful was the result of ecchymosis. It was recommended to the patient that she undergo additional excisional surgical debridement in an operative setting. Patient presents today to undergo this procedure. DESCRIPTION OF PROCEDURE After informed consent was obtained, patient was brought to the operative suite and the left lower extremity was prepped and draped in sterile fashion. Formal time-out was then completed. First attention was then focused to the wound bed. There were 2-3 small foci of areas that were about a centimeter in diameter which contained some necrotic subcutaneous tissues. This area was debrided sharply with a curette until a minimal amount of bleeding began to occur. Cephalad aspect of the wound involving the left anterior tibial surface appeared quite viable with good granulation tissue beginning to form. Distally , however, the inferior or caudad edge of the wound did not show any evidence for granulation tissue. Subcutaneous tissues did not appear viable and the skin was somewhat ecchymotic in nature. Incision was made upon this skin and the skin did not bleed. Additional debridement was then undertaken until I was able to reach viable epidermis and dermis that did bleed with knife. This resulted in an area being excised that was about 18 cm x 8 cm. Underlying subcutaneous tissues were also found to be necrotic in nature. The wound did extend medially to the underlying fascia of the gastrocnemius muscle. Subcutaneous tissues had been "lifted off" of the gastrocnemius fascia and were disrupted. There was a moderate old hematoma at this location which was suctioned and removed. Attention was then focused back along the inferior aspect of the original wound bed. There was some fascia that contained some necrotic debris upon its surface. This was debrided sharply with curette until the fascia bled throughout. A fair amount of time was spent debriding all nonviable skin, subcutaneous tissues and a portion of fascia as discussed above. Eventually one was able to debride back to healthy normal-appearing tissue. Meticulous hemostasis was obtained within the wound. Wound VAC was then applied. Black foam was placed throughout the wound and placed beneath the subcutaneous tissues that had been "lifted off" of the underlying subcutaneous tissues. Once the black foam was placed throughout the entire wound bed a Steri-Drape was then applied. A TRAC pad was then applied and attached to suction. The patient is in the process of awakening from her anesthetic and will be sent back to the recovery room once deemed in stable condition. Additionally, it should be noted that Basil Costa APRN, was present throughout the entire case and played a pivotal role in providing assistance and exposure during the course of the procedure. AHMET
--- NOTE | 2018-05-25 09:16 | General Surgery Progress Note ---
Subjective Patient reports: tolerating a regular diet, voiding w/o difficulty Narrative: States pain left lower leg in area of yesterday's debridement is quite painful. Morphine helps for only a short time, she would like the Con[place] back that she has been taking for years. Unsure why it is listed as an allergy. Vac is in place, foam nicely compressed. Home vac is in the room and ready when she is discharged, which will be at least several days. - Vital Signs Last Vital Signs Temp 97.5 F 05/25/18 07:17 Pulse 74 05/25/18 07:17 Resp 12 05/25/18 07:17 BP 132/91 H 05/25/18 07:17 Pulse Ox 97 05/25/18 07:17 - Laboratory Result Diagrams: 05/25/18 08:06 05/25/18 08:06 - Abnormal Exam Abdominal: obese - Normal Exam General: awake, alert, oriented Cardiovascular: regular rate Respiratory: no labored breathing Additional Normal Findings: wound vac foam left lower leg nicely compressed, with minimal drainage in canister, doesn't even cover bottom of canister. Assessment and Plan (1) Degloving injury of left lower leg Current Visit: No Status: Acute Qualifiers: Encounter type: initial encounter Qualified Code(s): S81.802A - Unspecified open wound, left lower leg, initial encounter Problem details: left (2) Lateral malleolar fracture Current Visit: No Status: Acute Qualifiers: Encounter type: initial encounter Fracture type: closed Fracture alignment: nondisplaced Laterality: left Qualified Code(s): S82.65XA - Nondisplaced fracture of lateral malleolus of left fibula, initial encounter for closed fracture (3) Metatarsal bone fracture Current Visit: No Status: Acute Qualifiers: Encounter type: initial encounter Metatarsal bone: fifth Fracture type: closed Fracture alignment: nondisplaced Laterality: right Qualified Code(s ): S92.354A - Nondisplaced fracture of fifth metatarsal bone, right foot, initial encounter for closed fracture (4) Hypertension Current Visit: No Status: Chronic Qualifiers: Hypertension type: essential hypertension Qualified Code(s): I10 - Essential (primary) hypertension (5) Osteoarthritis Current Visit: No Status: Chronic Qualifiers: Osteoarthritis location: unspecified site Osteoarthritis type: unspecified Qualified Code(s): M19.90 - Unspecified osteoarthritis, unspecified site Plan: Post surgical pain not well controlled with Morphine, will add Conover 10 and DC Ultram. Continue Stool softener Continue Cefazolin 1GM Q8H Continue most home meds. Start Lovenox tomorrow (last dose Eliquis 05/23 PM) Continue wound vac, with likely return to OR on for additional debridement and replacement of vac. Hospital Course Summary Disclaimer: The visit summary below is not to be considered part of the above Progress Note. Hospital Course: 05/25/2018 POD #1 Post surgical pain not well controlled with Morphine, will add Con[place] 10 and DC Ultram. Continue Stool softener Continue Cefazolin 1GM Q8H Continue most home meds. Start Lovenox tomorrow (last dose Eliquis 05/23 PM) Continue wound vac, with likely return to OR on for additional debridement and replacement of vac.
[2018-05-25] MEDS: DOCUSATE SODIUM 100 MG CAPSULE PO SCH ×2 (09:43→20:58)
[2018-05-25] MEDS: HYDROCODONE/APAP 10 MG/325 MG TABLET PO PRN ×3 (09:43→19:30)
[2018-05-25] MEDS: FERROUS GLUCONATE 324 MG TABLET PO SCH (09:43)
[2018-05-25] MEDS: POLYETHYL GLYCOL 3350 17gm PACKET PO SCH (09:44)
[2018-05-25] MEDS: NS FLUSH BAG 500ml IV PRN (16:59)
[2018-05-25] MEDS: LISINOPRIL 20 MG TABLET PO SCH (20:58)
[2018-05-25] MEDS: ZOLPIDEM 5 MG TABLET PO SCH (20:58)
[2018-05-25] MEDS: AMLODIPINE 2.5 MG TABLET PO SCH (20:58)
[2018-05-25] MEDS: PRAMIPEXOLE 0.25 MG TABLET PO SCH (20:59)
[2018-05-26] MEDS: CEFAZOLIN 1 G in NS 100 ML IV SCH ×3 (01:47→16:49)
[2018-05-26] MEDS: HYDROCODONE/APAP 10 MG/325 MG TABLET PO PRN ×4 (04:02→19:25)
[2018-05-26] MEDS: DOCUSATE SODIUM 100 MG CAPSULE PO SCH ×2 (08:07→20:10)
[2018-05-26] MEDS: FERROUS GLUCONATE 324 MG TABLET PO SCH (08:07)
[2018-05-26] MEDS: ENOXAPARIN 40 MG/0.4 ML INJECTION SQ SCH (08:08)
[2018-05-26] MEDS: POLYETHYL GLYCOL 3350 17gm PACKET PO SCH (08:08)
--- NOTE | 2018-05-26 10:08 | Progress Note ---
DATE 05/25/2018 FINDINGS was seen earlier today on rounds. She did have friends present during her visit. The patient was in good spirits. OBJECTIVE VITALS: Afebrile. Normotensive. Please refer to EMR. EXTREMITIES: Attention was focused to the left lower extremity. Wound VAC is in place and functioning. No significant periwound erythema. LABORATORY/RADIOGRAPHIC EVALUATION Patient had a CBC today which was reviewed. Hemoglobin slightly low at 7.9. BMP obtained and found to be essentially within normal limits. ASSESSMENT 62-year-old female status post exploration of traumatic wound involving left lower extremity with additional excisional surgical debridement of necrotic skin , subcutaneous tissues and fascia with reapplication of wound VAC. Patient overall doing well. PLAN Will continue with ongoing empiric antibiotic therapy, utilization of negative wound pressure therapy, intravenous narcotics and antiemetics as needed. On will likely return the patient to operative suite and remove VAC and reassess traumatic wound and proceed with additional debridement as needed. Overall pleased with the patient's progress. CYND
[2018-05-26] MEDS: NS FLUSH BAG 500ml IV PRN (16:49)
[2018-05-26] MEDS: SALINE FLUSH 10ml SYRINGE IV PRN (16:49)
--- NOTE | 2018-05-26 17:50 | Progress Note ---
DATE OF SERVICE 05/26/2018 FINDINGS Mrs. Jeter was seen earlier this morning on rounds. She was complaining of discomfort to her left calf region, especially with ambulation. Otherwise, patient without complaints. PHYSICAL EXAM VITAL SIGNS: Afebrile, normotensive. Please refer to EMR. EXTREMITIES: Attention was focused to the left lower extremity. Wound VAC is in place and functioning. There is no significant periwound erythema. The calf was tender upon palpation as one would expect following excisional surgical debridement and the degree of traumatic injury noted upon prior surgery. LABORATORY/RADIOGRAPHIC EVALUATION The patient had a CBC today and her hemoglobin is slightly improved at 8.8. White count stable at 12.0. ASSESSMENT 62-year-old female with extensive degloving injury to left lower extremity. Status post multiple excisional surgical debridements and application of wound VAC. Patient showing ongoing improvement. PLAN Will plan on returning patient to the operating room tomorrow for re- exploration of her wound and additional excisional surgical treatment as indicated. Above plan was discussed with patient. She understood and agreed. AHMET
[2018-05-26] MEDS: PRAMIPEXOLE 0.25 MG TABLET PO SCH (20:08)
[2018-05-26] MEDS: OMEPRAZOLE 20 MG CAPSULE PO SCH (20:08)
[2018-05-26] MEDS: ZOLPIDEM 5 MG TABLET PO SCH (20:08)
[2018-05-26] MEDS: AMLODIPINE 2.5 MG TABLET PO SCH (20:08)
[2018-05-26] MEDS: LISINOPRIL 20 MG TABLET PO SCH (20:08)
[2018-05-27] MEDS: CEFAZOLIN 1 G in NS 100 ML IV SCH ×3 (00:07→18:39)
[2018-05-27] MEDS: HYDROCODONE/APAP 10 MG/325 MG TABLET PO PRN ×3 (07:18→22:57)
[2018-05-27] MEDS: FERROUS GLUCONATE 324 MG TABLET PO SCH (08:09)
--- NOTE | 2018-05-27 09:21 | General Surgery Progress Note ---
Subjective Patient reports: pain is less (left leg after [place]), tolerating a regular diet (but NPO now for return to OR for left leg debridement later today), voiding w/ o difficulty, afebrile - Vital Signs Last Vital Signs Temp 98.2 F 05/27/18 07:25 Pulse 72 05/27/18 07:25 Resp 16 05/27/18 07:25 BP 125/69 05/27/18 07:25 Pulse Ox 97 05/27/18 07:25 - Laboratory Result Diagrams: 05/27/18 05:11 05/25/18 08:06 - Abnormal Exam Skin: left leg vac in place, foam nicely compressed, canister about 1/2 full of dark drainage. - Normal Exam General: awake, alert, oriented, no acute distress Cardiovascular: regular rate Respiratory: no labored breathing Abdominal: soft, non-tender Psychiatric: normal affect Assessment and Plan (1) Degloving injury of left lower leg Current Visit: No Status: Acute Qualifiers: Encounter type: initial encounter Qualified Code(s): S81.802A - Unspecified open wound, left lower leg, initial encounter Problem details: left (2) Lateral malleolar fracture Current Visit: No Status: Acute Qualifiers: Encounter type: initial encounter Fracture type: closed Fracture alignment: nondisplaced Laterality: left Qualified Code(s): S82.65XA - Nondisplaced fracture of lateral malleolus of left fibula, initial encounter for closed fracture (3) Metatarsal bone fracture Current Visit: No Status: Acute Qualifiers: Encounter type: initial encounter Metatarsal bone: fifth Fracture type: closed Fracture alignment: nondisplaced Laterality: right Qualified Code(s ): S92.354A - Nondisplaced fracture of fifth metatarsal bone, right foot, initial encounter for closed fracture (4) Hypertension Current Visit: No Status: Chronic Qualifiers: Hypertension type: essential hypertension Qualified Code(s): I10 - Essential (primary) hypertension (5) Osteoarthritis Current Visit: No Status: Chronic Qualifiers: Osteoarthritis location: unspecified site Osteoarthritis type: unspecified Qualified Code(s): M19.90 - Unspecified osteoarthritis, unspecified site Plan: Plan return to OR today, probably late afternoon, for additional debridement if needed and replace wound vac. Continue IV ABX, working on a wheelchair ramp at home. Will have a better idea of potential discharge after today's debridement. Home vac is already available. Will have wound clinic do vac changes twice a week upon discharge. Hospital Course Summary Disclaimer: The visit summary below is not to be considered part of the above Progress Note. Hospital Course: 05/25/2018 POD #1 Post surgical pain not well controlled with Morphine, will add [place] 10 and DC Ultram. Continue Stool softener Continue Cefazolin 1GM Q8H Continue most home meds. Start Lovenox tomorrow (last dose Eliquis 05/23 PM) Continue wound vac, with likely return to OR on for additional debridement and replacement of vac. 05/27 Plan return to OR today, probably late afternoon, for additional debridement if needed and replace wound vac. Continue IV ABX, working on a wheelchair ramp at home. Will have a better idea of potential discharge after today's debridement. Home vac is already available. Will have wound clinic do vac changes twice a week upon discharge.
[2018-05-27] MEDS: DOCUSATE SODIUM 100 MG CAPSULE PO SCH ×2 (09:25→20:24)
[2018-05-27] MEDS: POLYETHYL GLYCOL 3350 17gm PACKET PO SCH (09:25)
[2018-05-27] MEDS: ENOXAPARIN 40 MG/0.4 ML INJECTION SQ SCH (09:26)
--- NOTE | 2018-05-27 15:01 | Anesthesia Preoperative Report ---
Anesthesia Preoperative Record - Date and Time Date: 05/27/18 Preoperative Diagnosis: Surgical Debridement Lt Lower Leg Proposed Procedure: Left lower extremity debridement with wound vac change NPO Since Date: 05/27/18 NPO Since Time: 00:00 Allergies/Adverse Reactions: Allergies Allergy/AdvReac Type Severity Reaction Status Date / Time adhesive Allergy Unknown ITCHING, Verified 12/23/17 14:53 RASH Sulfa (Sulfonamide Allergy Unknown N&V Verified 12/23/17 14:53 Antibiotics) Choline Fenofibrate Allergy Unknown MUSCLE Uncoded 12/23/17 14:53 CRAMPS diclofenac potassium Allergy Unknown STOMACH Uncoded 12/23/17 14:53 DISTRESS oxycodone HCl AdvReac Unknown ITCH Uncoded 12/23/17 14:53 statins AdvReac Uncoded 12/23/17 14:53 - Vital Signs Vital Signs: Temperature 98.0 F 05/27/18 11:55 Pulse Rate 76 05/27/18 11:55 Respiratory Rate 16 05/27/18 07:25 Blood Pressure 137/70 05/27/18 11:55 Pulse Oximetry 98 05/27/18 11:55 Height and Weight: Height 1.63 m Weight 104.9 kg Body Mass Index 40.6 - Medications Inpatient Medications: Current Medications Hydrocodone Bitart/Acetaminophen (Craig 10/325) 1 tab PO Q4H PRN PRN Reason: Pain Last Admin: 05/27/18 07:18 Dose: 1 tab Amlodipine Besylate (Norvasc) 2.5 mg PO HS [facility] Last Admin: 05/26/18 20:08 Dose: 2.5 mg Docusate Sodium (Colace) 100 mg PO BID [facility] Last Admin: 05/27/18 09:25 Dose: Not Given Enoxaparin Sodium (Lovenox) 40 mg SQ DAILY [facility] Last Admin: 05/27/18 09:26 Dose: 40 mg Ferrous Gluconate (Fergon) 324 mg PO WB [facility] Last Admin: 05/27/18 08:09 Dose: Not Given Cefazolin Sodium 1 g/ Sodium (Chloride) 100 mls @ 200 mls/hr IV Q8HR [facility] Last Infusion: 05/27/18 10:12 Dose: Infused Lisinopril (Prinivil) 20 mg PO HS [facility] Last Admin: 05/26/18 20:08 Dose: 20 mg Metoprolol Succinate (Toprol Xl) 100 mg PO HS [facility] Last Admin: 05/26/18 20:08 Dose: 100 mg Morphine Sulfate (Morphine Sulfate Inj) 1 - 4 mg IVP Q2H PRN PRN Reason: Pain Last Admin: 05/25/18 03:19 Dose: 2 mg Omeprazole (Prilosec) 20 mg PO HS [facility] Last Admin: 05/26/18 20:08 Dose: 20 mg Polyethylene Glycol (Miralax) 17 gm PO DAILY [facility] Last Admin: 05/27/18 09:25 Dose: Not Given Pramipexole Dihydrochloride (Mirapex) 0.125 mg PO [facility] Last Admin: 05/26/18 20:08 Dose: 0.125 mg Rizatriptan Benzoate (Maxalt 5 Mg) 10 mg PO DAILY PRN PRN Reason: Headache Sodium Chloride (Normal Saline) 500 ml IV PRN PRN Last Admin: 05/26/18 16:49 Dose: 500 ml Sodium Chloride (Iv Flush) 10 - 80 ml IV PRN PRN PRN Reason: Flushing Last Admin: 05/26/18 16:49 Dose: 10 ml Tramadol HCl (Ultram) 50 mg PO Q4H PRN PRN Reason: Pain Zolpidem Tartrate (Ambien) 5 mg PO [facility] Last Admin: 05/26/18 20:08 Dose: 5 mg Home Medications: Home Medications Medication Instructions Recorded Confirmed Type Omeprazole/Sodium Bicarbonate 1 cap PO HS #0 09/20/12 05/24/18 History [Zegerid 20 mg Capsule] hydrochlorothiazide 12.5 mg tablet 12.5 mg PO HS 10/26/17 05/24/18 History Acetaminophen [Acetaminophen Extra 1,000 mg PO Q6HR PRN 05/17/18 05/24/18 History Strength] Amlodipine [Norvasc] 2.5 mg PO HS 05/17/18 05/24/18 History Lisinopril [Prinivil] 20 mg PO HS 05/17/18 05/24/18 History Metoprolol Succinate [Toprol Xl] 100 mg PO HS 05/17/18 05/24/18 History PEG 3350 17gm PACKET [Miralax] 17 gm PO DAILY 05/17/18 05/24/18 History Pramipexole Di-HCl [Mirapex] 0.125 mg PO HS 05/17/18 05/24/18 History Rizatriptan Benzoate [Maxalt] 10 mg PO DAILY PRN 05/17/18 05/24/18 History Docusate Sodium [Colace] 100 mg PO BID cap 05/24/18 05/24/18 Rx Ferrous Gluconate [Fergon] 324 mg PO WB tab 05/24/18 05/24/18 Rx Hydrocodone/APAP 10/325 [Craig 1 - 2 tab PO Q4H PRN tab 05/24/18 05/24/18 Rx 10/325] Tramadol [Ultram] 50 mg PO Q4H PRN tab 05/24/18 05/24/18 Rx Zolpidem [Ambien] 5 mg PO HS tab 05/24/18 05/24/18 Rx Is Patient on Beta Eusebio?: Yes Beta Eusebio Last Dose Date/Time: 05/26/18 @ 1999 - Medical History Respiratory: DENIES: Sleep Apnea Cardiovascular: Reports: Hypertension, High Cholesterol Gastrointestional: Reports: Gastroesophageal Reflux Disease, Hiatal Hernia Neuro/Musculoskeletal: Reports: Back Problems (HERNIATED DISC IN BACK) - Surgical History HEENT Surgeries: Reports: Tonsillectomy Cardiac Surgeries/Treatments: Reports: Cardiac Catheterization (2008- ) GI Surgery/Treatments: Reports: Colonoscopy, EGD Musculoskeletal Surgery/Tx: Reports: Shoulder Arthroscopy (7 anchors R shoulder , PIP joint remove L toe x2), Total Knee Replacement (Rt) Reproductive Surgery/Treatment: Reports: Section, Tubal Ligation Anesthesia Reactions: None Hx Family Anesthesia Reaction: No History of Motion Sickness: No - Social History Smoking Status: Never smoker Hx Chewing Tobacco Use: No Second Hand Exposure: No Substance Use Type: does not use Alcohol Intake: never Alcohol Intake Frequency: does not drink - Pertinent Findings Laboratory: CBC and BMP 05/27/18 05:11 05/25/18 08:06 EKG: Sinus Rhythm - Physical Exam Respiratory Exam: Present: lungs clear, bilateral breath sounds equal Cardiovascular Exam: Present: regular rate and rhythm - Airway Assessment Mallampati Score: II TMD: 3 Fingerbreadths Neck Extension: good Overall Assessment: may be difficult mask vent, may be difficult intubation - ASA ASA Score: 3 - Plan Anesthesia: General TIVA - Discussion Discussion: Discussed risks/options/alternatives of anesthesia and questions answered. Patient consents. Nursing pain assessment noted. Present for Discussion: spouse Attestation Statement: Prior to the delivery of any anesthetic medication, I examined the patient, developed the plan, obtained the patient's consent and discussed the risk and benefits of the procedure with the patient/guardian.
[2018-05-27] MEDS ORDERED: BUPIVACAINE 0.25%/EPI 1:200,000 30ml SDV ONE (15:29)
[2018-05-27] MEDS: LR 1,000 ML IV SCH ×3 (15:31→20:21)
[2018-05-27] MEDS ORDERED: PROPOFOL 500 MG/50 ML VIAL ONE (15:55)
[2018-05-27] MEDS ORDERED: FentaNYL 100 MCG/2 ML INJECTION ONE ×2 (15:58→17:19)
--- NOTE | 2018-05-27 16:13 | General Surgery Procedure Note ---
Date of Procedure: 05/27/18 Surgeon: [employer] Lineworker: Basil Costa APRN Postoperative Diagnosis: traumatic wound left lower leg with necrosis Procedure: surgical debridement of necrotic tissue left lower leg and placement of instill wound vac Estimated Blood Loss: See Anesthesia Record. Pathology: none sent
[2018-05-27] MEDS ORDERED: PROPOFOL 20 ML ONE (17:06)
--- NOTE | 2018-05-27 17:21 | Anesthesia Postoperative Note ---
- Date and Time Date: 05/27/18 Time: 17:21 - Status Patient Participated in Evaluation: Patient Participated in Person Vital Signs: Temperature 98.0 F 05/27/18 15:21 Pulse Rate 81 05/27/18 15:21 Respiratory Rate 16 05/27/18 15:21 Blood Pressure 137/70 05/27/18 11:55 Pulse Oximetry 99 05/27/18 15:21 Respiratory Function: Airway Patent Cardiovascular Function: Regular Pulse EKG: Sinus Rhythm Mental Status: Alert and Oriented Pain Intensity: 5 Hydration: Taking PO Fluids Complications During Recover: None Apparent - Follow-Up Instructions Instructions: Per Surgeon
[2018-05-27] MEDS: HYDROMORPHONE 2 MG/ML INJECTION IVP PRN ×2 (17:25→17:46)
--- NOTE | 2018-05-27 17:58 | Progress Note ---
DATE OF SERVICE 05/27/2018 FINDINGS Mrs. Jeter was seen earlier today prior to her surgery. She still is experiencing a component of some discomfort involving her left calf as one would expect. Pain, however, is not increasing in nature. PHYSICAL EXAM VITAL SIGNS: Afebrile, normotensive. Please refer to EMR. EXTREMITIES: Attention was focused to the left lower extremity. Wound VAC was removed and the wound was explored. Please refer to operative note if detail needed. Overall, the wound is showing good improvement. There is still, however, some foci of necrotic material. ASSESSMENT 62-year-old female with traumatic degloving injury to left lower extremity. Overall patient doing well. PLAN Patient had a CBC today and her white count is overall stable at 10.7. Hemoglobin stable at 0.2. Will continue with Ancef for skin coverage. At this time there are no signs of infection. I will be leaving town tomorrow and transfer care to Dr. Reece. The patient will likely need to be returned back to the operative suite next week for re-exploration of her wound and additional excisional surgical treatment as indicated. AHMET
[2018-05-27] MEDS ORDERED: HYDROCODONE/APAP 5mg/325mg TABLET PO PRN (19:35)
[2018-05-27] MEDS ORDERED: ONDANSETRON ODT 4 MG TABLET PO PRN (19:35)
[2018-05-27] MEDS ORDERED: IBUPROFEN 600 MG TABLET PO PRN (19:35)
[2018-05-27] MEDS: OMEPRAZOLE 20 MG CAPSULE PO SCH (20:25)
[2018-05-27] MEDS: PRAMIPEXOLE 0.25 MG TABLET PO SCH (20:25)
[2018-05-27] MEDS: LISINOPRIL 20 MG TABLET PO SCH (22:37)
[2018-05-27] MEDS: AMLODIPINE 2.5 MG TABLET PO SCH (22:37)
[2018-05-27] MEDS: ZOLPIDEM 5 MG TABLET PO SCH (22:58)
[2018-05-28] MEDS: CEFAZOLIN 1 G in NS 100 ML IV SCH ×3 (01:29→17:24)
[2018-05-28] MEDS: TRAMADOL 50 MG TABLET PO PRN (01:34)
[2018-05-28] MEDS: LR 1,000 ML IV SCH ×4 (04:15→22:41)
[2018-05-28] MEDS: HYDROCODONE/APAP 10 MG/325 MG TABLET PO PRN ×5 (04:15→21:02)
[2018-05-28] MEDS: FERROUS GLUCONATE 324 MG TABLET PO SCH (08:31)
[2018-05-28] MEDS: POLYETHYL GLYCOL 3350 17gm PACKET PO SCH (08:31)
[2018-05-28] MEDS: ENOXAPARIN 40 MG/0.4 ML INJECTION SQ SCH (08:31)
[2018-05-28] MEDS: DOCUSATE SODIUM 100 MG CAPSULE PO SCH ×2 (08:31→21:02)
--- NOTE | 2018-05-28 08:45 | Operative Note ---
DATE OF SERVICE 05/27/2018 SURGEON Guero Leung MD DIVISION CHIEF Basil Costa APRN PREOPERATIVE DIAGNOSIS Traumatic degloving injury to left lower extremity. POSTOPERATIVE DIAGNOSIS Traumatic degloving injury to left lower extremity. PROCEDURE Exploration of traumatic wound to left lower extremity with additional excisional surgical debridement of necrotic subcutaneous tissues and small portion of fascia. ANESTHESIA TIVA BRIEF HISTORY/INDICATIONS Mrs. Jeter is a 62-year-old female who has had the misfortune of developing a large traumatic degloving injury to her left lower extremity following a fall. She has been taken to the operative suite previously and underwent excisional surgical debridement. It was recommended to the patient that she be returned to the operative suite for re-exploration of her wound and additional excisional surgical debridement as indicated pending intraoperative findings. For completeness, please refer to notes included in the patient's chart. DESCRIPTION OF PROCEDURE After informed consent was obtained, patient was brought to the operative suite , placed on the table in a supine fashion. After establishment of total intravenous anesthesia, the wound VAC dressing was removed. The left lower extremity was then prepped and draped in sterile fashion. Formal time-out was then completed. Wound was explored. Fortunately, there was no further necrosis of the skin edges. There was however, still some nonviable subcutaneous tissues present within different locations of the wound. The cephalad portion of the wound remained to contain excellent granulation tissue throughout. Within the midportion of the wound, there was an area of necrotic subcutaneous tissues which did not unfortunately begin to show any signs of granulation. This was overlying the underlying fascia. An area that was perhaps 15 cm in length and about 6-7 cm in width was additionally debrided of this necrotic subcutaneous tissues along the midportion of the wound. Attention was then focused medially where the wound did tunnel overlying the gastrocnemius muscle. The portion of the wound overlying the gastrocnemius muscle did not show any evidence for additional necrosis. There was some good granulation tissue forming. There was an area, however, just beneath the surface of the skin anterior to this layer where there was some additional necrotic subcutaneous tissues. Additional subcutaneous tissues were then excised from this location as well. This area was perhaps about 10 cm in length and perhaps 3-4 cm in width. All necrotic tissue was debrided sharply with surgical curettes and sharp dissection with a 15 blade. Small amount of bleeding began to occur out laterally. Hemostasis was obtained with the use of electrocautery. The wound was then continued to be carefully explored. There was one small foci of fascia along the lateral aspect of the wound which was void of granulation tissue. This area was also debrided sharply until a minimal amount of bleeding began to occur. This area of debridement was fairly small and perhaps on the order of about 2 cm x 1 cm. Meticulous hemostasis was obtained throughout the wound. Once all nonviable tissue had been excised, the wound was then pulse lavaged. The wound was then again inspected and additional hemostasis was obtained. Attention was then directed towards application of the wound VAC. Black foam was placed throughout the entire wound including the areas of tunneling. Steri-Drape was then placed overlying the dressing. A TRAC pad was then applied. It was elected that we would place an Instill VAC to facilitate healing. The patient is still in the process of awakening from her anesthetic and once she has awakened, she will be sent back to the recovery room once deemed in stable condition. Additionally, it should be noted that Basil oCsta APRN, was present throughout the entire case and played a pivotal role in providing assistance and exposure during the course of the procedure. AHMET
--- NOTE | 2018-05-28 10:19 | General Surgery Progress Note ---
Subjective Narrative: She is is good spirits today. She states the initial post op pain was almost as bad last night as it was after the 1st debridement, but again, Minter seems to be quite helpful. She has calf pain with ambulation. She denies nausea, chest pain, SOA, abd pain, etc. - Vital Signs Last Vital Signs Temp 97.3 F 05/28/18 07:22 Pulse 78 05/28/18 07:22 Resp 16 05/28/18 07:22 BP 120/59 05/28/18 07:22 Pulse Ox 96 05/28/18 07:22 - Laboratory Result Diagrams: 05/28/18 04:07 05/25/18 08:06 - Abnormal Exam Abdominal: obese - Normal Exam General: awake, alert, oriented, no acute distress Cardiovascular: regular rhythm, regular rate Respiratory: clear bilaterally, no labored breathing Abdominal: soft, non-tender Additional Normal Findings: Wound vac left lower leg with foam nicely compressed, vac machine without leak and in suction mode now, it will instill NS during instillation mode, about 50 ml clear fluid in the canister. Calf is soft to palpation, no cords or nodules. Medial skin flap is a little hyperemic. Assessment and Plan (1) Degloving injury of left lower leg Current Visit: No Status: Acute Qualifiers: Encounter type: initial encounter Qualified Code(s): S81.802A - Unspecified open wound, left lower leg, initial encounter Problem details: left (2) Lateral malleolar fracture Current Visit: No Status: Acute Qualifiers: Encounter type: initial encounter Fracture type: closed Fracture alignment: nondisplaced Laterality: left Qualified Code(s): S82.65XA - Nondisplaced fracture of lateral malleolus of left fibula, initial encounter for closed fracture (3) Metatarsal bone fracture Current Visit: No Status: Acute Qualifiers: Encounter type: initial encounter Metatarsal bone: fifth Fracture type: closed Fracture alignment: nondisplaced Laterality: right Qualified Code(s ): S92.354A - Nondisplaced fracture of fifth metatarsal bone, right foot, initial encounter for closed fracture (4) Hypertension Current Visit: No Status: Chronic Qualifiers: Hypertension type: essential hypertension Qualified Code(s): I10 - Essential (primary) hypertension (5) Osteoarthritis Current Visit: No Status: Chronic Qualifiers: Osteoarthritis location: unspecified site Osteoarthritis type: unspecified Qualified Code(s): M19.90 - Unspecified osteoarthritis, unspecified site Plan: Additional necrotic tissue had to be derided yesterday. Instill vac applied. Will continue Minter and Motrin prn for pain. Mirilax to prevent constipation. PT to help with safe ambulation. Plan on return to the OR on Thursday with Dr. Reece for another look, debridement if needed, and re-placement of Instill vac Hospital Course Summary Disclaimer: The visit summary below is not to be considered part of the above Progress Note. Hospital Course: 05/25/2018 POD #1 Post surgical pain not well controlled with Morphine, will add Minter 10 and DC Ultram. Continue Stool softener Continue Cefazolin 1GM Q8H Continue most home meds. Start Lovenox tomorrow (last dose Eliquis 7 PM) Continue wound vac, with likely return to OR on for additional debridement and replacement of vac. 05/27 Plan return to OR today, probably late afternoon, for additional debridement if needed and replace wound vac. Continue IV ABX, working on a wheelchair ramp at home. Will have a better idea of potential discharge after today's debridement. Home vac is already available. Will have wound clinic do vac changes twice a week upon discharge. 05/28 Additional necrotic tissue had to be derided yesterday. Instill vac applied. Will continue Minter and Motrin prn for pain. Mirilax to prevent constipation. PT to help with safe ambulation. Plan on return to the OR on Thursday with Dr. Reece for another look, debridement if needed, and re-placement of Instill vac
--- NOTE | 2018-05-28 14:00 | Orthopedic Consult Note ---
Orthopedic Consultation HPI - Consultation Info Consult Date: 05/28/18 Attending Physician: Guero Leung MD - History of Present Illness Ms. Mccurdy is a pleasant 62-year-old female who was admitted for I&D of left lower extremity traumatic wound with wound vac. On 05/12/18, patient was caring for her neighbors dog. She had gotten through taking care of the dog and then exited the house and stepped into the garage down 2 steps. She felt like her "hip went out" resulting in a fall and degloving injury of her left lower extremity. The patient was transferred to [facility] in [place] where she was seen by Dr. Summers and Dr. Partida. With this fall she also sustained right metatarsal fracture and left distal fibula fracture. Previous films are unavailable. She was given a post op shoe and instructed to be non-weight bearing per records. However she states she was instructed to walk and work on strengthening by PT; therefore, has been doing so since initial injury. She does have the post op shoe, has not been using it during this hospital stay. She denies any pain with right foot or left ankle. Her pain is from left lower anterior tibialis traumatic wound. Review of Systems - Musculoskeletal Musculoskeletal: Present: as per HPI PFSH Patient Stated Medical History Migraine Yes: well controlled with medication Hearing Loss Yes: RIGHT EAR, [place] Hypertension Yes Sleep Apnea No Gastroesophageal Reflux Yes Disease Hiatal Hernia Yes Hx Incontinence No Hx Urinary Tract Infection Yes: OCCASIONALLY Osteoarthritis Yes Shingles Yes Clinic Medical History (Last Reviewed 12/23/17 @ 19:30 by ERIKA Gautam) High cholesterol (Chronic Medical) Osteoarthritis (Chronic Medical) HTN (hypertension) (Acute Medical) Restless leg syndrome (Acute Medical) GERD (gastroesophageal reflux disease) (Chronic Medical) Medical History Updates: Migraine headaches. Restless leg syndrome. Insomnia Surgical History: R total knee replacement; R shoulder surgery: labrum surgery with multiple "anchors" placed-2005; L second toe; Resection Prox phalanx L 3rd toe-2012; tonsils, , Tubal ligation, surgical repair & wound VAC for degloving injury to left lower extremity 05/12/18 (Dr. Maged Partida) Family History: Family History (Last Reviewed 12/23/17 @ 19:30 by ERIKA Gautam) Mother Arthritis Heart attack High blood pressure High cholesterol Stroke Family History Updates: Father of prostate cancer in his early 80s. Mother of heart attack in her early 80s as well. Multiple siblings have hypertension. - Social History Smoking status: Never smoker second hand exposure: No Substance use type: does not use Alcohol intake: never Alcohol intake frequency: does not drink Housing: house Household members: spouse Current occupational status: employed ([employer] in [place]) Does patient use chewing tobacco?: No Current residence: Apartment/Private Home Medications Home Medications Medication Instructions Recorded Confirmed Type Omeprazole/Sodium Bicarbonate 1 cap PO HS #0 09/20/12 05/24/18 History [Zegerid 20 mg Capsule] hydrochlorothiazide 12.5 mg tablet 12.5 mg PO HS 10/26/17 05/24/18 History Acetaminophen [Acetaminophen Extra 1,000 mg PO Q6HR PRN 05/17/18 05/24/18 History Strength] Amlodipine [Norvasc] 2.5 mg PO HS 05/17/18 05/24/18 History Lisinopril [Prinivil] 20 mg PO HS 05/17/18 05/24/18 History Metoprolol Succinate [Toprol Xl] 100 mg PO HS 05/17/18 05/24/18 History PEG 3350 17gm PACKET [Miralax] 17 gm PO DAILY 05/17/18 05/24/18 History Pramipexole Di-HCl [Mirapex] 0.125 mg PO HS 05/17/18 05/24/18 History Rizatriptan Benzoate [Maxalt] 10 mg PO DAILY PRN 05/17/18 05/24/18 History Docusate Sodium [Colace] 100 mg PO BID cap 05/24/18 05/24/18 Rx Ferrous Gluconate [Fergon] 324 mg PO WB tab 05/24/18 05/24/18 Rx Hydrocodone/APAP 10/325 [[place] 1 - 2 tab PO Q4H PRN tab 05/24/18 05/24/18 Rx 10/325] Tramadol [Ultram] 50 mg PO Q4H PRN tab 05/24/18 05/24/18 Rx Zolpidem [Ambien] 5 mg PO HS tab 05/24/18 05/24/18 Rx Allergies Allergy/AdvReac Type Severity Reaction Status Date / Time adhesive Allergy Unknown ITCHING, Verified 12/23/17 14:53 RASH Sulfa (Sulfonamide Allergy Unknown N&V Verified 12/23/17 14:53 Antibiotics) Choline Fenofibrate Allergy Unknown MUSCLE Uncoded 12/23/17 14:53 CRAMPS diclofenac potassium Allergy Unknown STOMACH Uncoded 12/23/17 14:53 DISTRESS oxycodone HCl AdvReac Unknown ITCH Uncoded 12/23/17 14:53 statins AdvReac Uncoded 12/23/17 14:53 Exam - Constitutional Vital Signs: Temperature 98.2 F 05/28/18 12:00 Pulse Rate 72 05/28/18 12:00 Respiratory Rate 18 05/28/18 12:00 Blood Pressure 121/61 05/28/18 12:00 Pulse Oximetry 99 05/28/18 12:00 General: cooperative, healthy appearing, no acute distress, well developed, well groomed Nutritional Appearance: well nourished Orientation: alert, oriented x3 - RLE General: edema (right foot +2 ) Postoperative Appearance: extremity compartments are soft and nontender, neurovascullary intact to extremities Skin: ecchymosis ( lateral dorsal foot and plantar aspect of right foot) Neurological: no deficits Vascular: dorsalis pedis pulse within normal limits Right Lower Extremity comments: No tenderness to palpation over right 5th metatarsal. Full ROM of right foot/ ankle. - LLE General: edema (left pedal edema +2) Postoperative Appearance: extremity compartments are soft and nontender (left ankle/foot), neurovascullary intact to extremities (left ankle/foot) Vascular: dorsalis pedis pulse within normal limits Left Lower Extremity Comments: No tenderness to palpation over lateral malleolus, nontender with ROM of ankle - Labs Result Diagrams: 05/28/18 04:07 05/25/18 08:06 Abnormal lab results 05/28/18 Range/Units 04:07 RBC 2.72 L (4.00-5.20) M/MM3 Hgb 7.1 L D (12-16) GM/DL Hct 23.9 L D (36-46) % MCHC 29.7 L (31-37) GM/DL Plt Count 543 H (130-400) T/MM3 Neut % (Auto) 72.8 H (33-66) % Lymph % (Auto) 14.0 L (23-45) % Braxton % (Auto) 9.9 H (0-9.0) % Neut # (Auto) 7.9 H (1.8-7.7) T/MM3 Braxton # (Auto) 1.1 H (0-0.8) T/MM3 H & H 05/25/18 05/26/18 05/27/18 Range/Units 08:06 04:10 05:11 Hgb 7.9 L 8.8 L D 8.2 L (12-16) GM/DL Hct 26.7 L 29.6 L 27.0 L (36-46) % 05/28/18 Range/Units 04:07 Hgb 7.1 L D (12-16) GM/DL Hct 23.9 L D (36-46) % Impression and Recommendation (1) Metatarsal bone fracture Current visit: No Qualifiers: Encounter type: initial encounter Metatarsal bone: fifth Fracture type: closed Fracture alignment: nondisplaced Laterality: right Qualified Code(s ): S92.354A - Nondisplaced fracture of fifth metatarsal bone, right foot, initial encounter for closed fracture Status: Acute Minimally displaced oblique 5th metatarsal mid shaft fracture. Patient has been ambulating on right foot for the past 3 weeks, and is non tender. May continue WBAT with post op shoe on right. Dr. Ceron will follow up with patient tomorrow. May consider repeating films in 1 week to monitor for further displacement. (2) Lateral malleolar fracture Current visit: No Qualifiers: Encounter type: initial encounter Fracture type: closed Fracture alignment: nondisplaced Laterality: left Qualified Code(s): S82.65XA - Nondisplaced fracture of lateral malleolus of left fibula, initial encounter for closed fracture Status: Acute Left distal lateral malleolar fracture, minimal displaced. Typically treat weightbearing in camwalker, however due to traumatic wound on anterior lower leg this is difficult. Will continue WBAT. Patient has been ambulating without pain for the past three weeks. Will follow patient, may consider repeating films in 1 week to monitor for further displacement. Hospital Course Summary Disclaimer: The visit summary below is not to be considered part of the above Progress Note. Hospital Course: 05/25/2018 POD #1 Post surgical pain not well controlled with Morphine, will add [place] 10 and DC Ultram. Continue Stool softener Continue Cefazolin 1GM Q8H Continue most home meds. Start Lovenox tomorrow (last dose Eliquis 05/23 PM) Continue wound vac, with likely return to OR on for additional debridement and replacement of vac. 05/27 Plan return to OR today, probably late afternoon, for additional debridement if needed and replace wound vac. Continue IV ABX, working on a wheelchair ramp at home. Will have a better idea of potential discharge after today's debridement. Home vac is already available. Will have wound clinic do vac changes twice a week upon discharge. 05/28 Additional necrotic tissue had to be derided yesterday. Instill vac applied. Will continue [place] and Motrin prn for pain. Mirilax to prevent constipation. PT to help with safe ambulation. Plan on return to the OR on Thursday with Dr. Reece for another look, debridement if needed, and re-placement of Instill vac
--- NOTE | 2018-05-28 14:04 | XRay Report ---
Indication: possible fx PROCEDURE: XR foot BI 3V: Encounter: Initial Comparison: Left foot radiographs dated June 13, 2013 and right foot radiographs dated February 15, 2013 Findings: Left foot: No acute fracture or dislocation. Prior osteotomies involving the second and third toe proximal phalanges. Old healed fracture deformity of the fifth metatarsal shaft distally. Hallux valgus deformity. Midfoot soft tissue swelling. Right foot: Oblique minimally displaced fracture of the fifth metatarsal midshaft extending towards the neck. This does not involve the joint space. No additional fracture. No dislocation. Impression: Left foot: No acute osseous abnormality. Right foot: Closed post traumatic fifth metatarsal fracture. .
--- NOTE | 2018-05-28 14:07 | XRay Report ---
Indication: possible fx PROCEDURE: XR ankle BI 3V: Encounter: Initial Comparison: Foot radiographs from today Findings: Left ankle: Age-indeterminate avulsion fracture from the fibular tip measuring 4 to 5 mm in size. No additional areas concerning for fracture. No dislocation. The ankle mortise is symmetric and the talar dome intact. Right ankle: No acute fracture or dislocation seen in the ankle. Fifth metatarsal shaft fracture is better seen on the dedicated foot radiographs. The ankle mortise is symmetric and the talar dome intact. Impression: Left ankle: Age-indeterminate fibular tip avulsion fracture. Right ankle: No acute fracture in the ankle. .
--- NOTE | 2018-05-28 20:18 | Progress Note ---
DATE OF VISIT 05/28/2018 REASON FOR VISIT Covering surgical care for Dr. Leung. SUBJECTIVE Rehana is doing well today. She has no significant complaints at this point in time. She does note that her right foot was cold despite the blankets. OBJECTIVE VITAL SIGNS: Afebrile with stable vitals on room air. GENERAL: The patient is awake and alert, in no acute distress. EXTREMITIES: Her wound VAC in the left lower extremity is well sealed with serosanguineous drainage of the Instill VAC. LABORATORY DATA White blood cell count 10.9. Hemoglobin was 7.1 this morning and a recheck was 7.2. IMPRESSION 1. Degloving injury of the left lower extremity - status post multiple debridements and wound VAC placement. 2. Left lateral malleolar fracture. 3. Right metatarsal fracture. 4. Hypertension - stable. 5. Osteoarthritis - stable. PLAN 1. Continue Instill VAC over the weekend. 2. N.P.O. at midnight on Thursday for return to the OR for wound VAC change and possible debridement on Thursday. 3. Continue other care. 4. Dr. Cadena will be covering for the weekend. AHMET
[2018-05-28] MEDS: AMLODIPINE 2.5 MG TABLET PO SCH (20:21)
[2018-05-28] MEDS: LISINOPRIL 20 MG TABLET PO SCH (20:21)
[2018-05-28] MEDS: OMEPRAZOLE 20 MG CAPSULE PO SCH (21:01)
[2018-05-28] MEDS: PRAMIPEXOLE 0.25 MG TABLET PO SCH (21:01)
[2018-05-28] MEDS: ZOLPIDEM 5 MG TABLET PO SCH (21:01)
[2018-05-29] MEDS: CEFAZOLIN 1 G in NS 100 ML IV SCH ×4 (00:30→23:53)
[2018-05-29] MEDS: HYDROCODONE/APAP 10 MG/325 MG TABLET PO PRN ×4 (03:56→19:49)
[2018-05-29] MEDS: LR 1,000 ML IV SCH ×6 (04:58→22:17)
[2018-05-29] MEDS: DOCUSATE SODIUM 100 MG CAPSULE PO SCH ×2 (09:10→20:13)
[2018-05-29] MEDS: POLYETHYL GLYCOL 3350 17gm PACKET PO SCH ×2 (09:11→09:12)
[2018-05-29] MEDS: ENOXAPARIN 40 MG/0.4 ML INJECTION SQ SCH (09:11)
[2018-05-29] MEDS: FERROUS GLUCONATE 324 MG TABLET PO SCH (09:11)
--- NOTE | 2018-05-29 18:12 | Progress Note ---
DATE 05/29/2018 HISTORY OF PRESENT ILLNESS The patient is doing well. She is receiving intravenous Kefzol. PHYSICAL EXAMINATION VITAL SIGNS: Temperature is 98.8 degrees Fahrenheit oral. Pulse is 94. Respiratory rate is 13. Blood pressure is 136/66. Oxygen saturation is 96% on room air. EXTREMITIES: The patient has an Instill VAC in place at the anterior surface of the left lower leg. The skin around the Instill VAC has a satisfactory appearance. The Instill VAC looks good. LABORATORY DATA White blood cell count is 10,000. Hemoglobin is 7. Hematocrit is 23.7. IMPRESSION 1. Degloving injury at left lower extremity. 2. Anemia. PLAN 1. Continue intravenous Kefzol. 2. Continue Instill VAC over the weekend. 3. Dr. Reece does plan to take the patient back to the operating room for a Instill VAC dressing change and possible debridement on 05/31/2018. AHMET
[2018-05-29] MEDS: PRAMIPEXOLE 0.25 MG TABLET PO SCH (20:12)
[2018-05-29] MEDS: LISINOPRIL 20 MG TABLET PO SCH (20:12)
[2018-05-29] MEDS: OMEPRAZOLE 20 MG CAPSULE PO SCH (20:12)
[2018-05-29] MEDS: ZOLPIDEM 5 MG TABLET PO SCH ×2 (20:13→21:51)
[2018-05-29] MEDS: AMLODIPINE 2.5 MG TABLET PO SCH (20:13)
[2018-05-30] MEDS: LR 1,000 ML IV SCH ×5 (01:29→19:06)
[2018-05-30] MEDS: HYDROCODONE/APAP 10 MG/325 MG TABLET PO PRN ×4 (05:02→19:54)
[2018-05-30] MEDS: DOCUSATE SODIUM 100 MG CAPSULE PO SCH ×2 (08:21→20:24)
[2018-05-30] MEDS: POLYETHYL GLYCOL 3350 17gm PACKET PO SCH (08:21)
[2018-05-30] MEDS: FERROUS GLUCONATE 324 MG TABLET PO SCH (09:19)
[2018-05-30] MEDS: CEFAZOLIN 1 G in NS 100 ML IV SCH ×3 (09:19→18:14)
[2018-05-30] MEDS: ENOXAPARIN 40 MG/0.4 ML INJECTION SQ SCH (09:20)
[2018-05-30] MEDS: OMEPRAZOLE 20 MG CAPSULE PO SCH ×2 (19:53→20:25)
[2018-05-30] MEDS: PRAMIPEXOLE 0.25 MG TABLET PO SCH ×2 (19:53→20:25)
[2018-05-30] MEDS: LISINOPRIL 20 MG TABLET PO SCH (20:24)
[2018-05-30] MEDS: AMLODIPINE 2.5 MG TABLET PO SCH (20:24)
[2018-05-30] MEDS: ZOLPIDEM 5 MG TABLET PO SCH (21:04)
[2018-05-31] MEDS: HYDROCODONE/APAP 10 MG/325 MG TABLET PO PRN ×4 (00:08→22:49)
[2018-05-31] MEDS: CEFAZOLIN 1 G in NS 100 ML IV SCH ×3 (01:24→16:10)
[2018-05-31] MEDS: LR 1,000 ML IV SCH ×3 (03:29→14:25)
[2018-05-31] MEDS: ENOXAPARIN 40 MG/0.4 ML INJECTION SQ SCH (08:08)
[2018-05-31] MEDS: FERROUS GLUCONATE 324 MG TABLET PO SCH (08:18)
[2018-05-31] MEDS: POLYETHYL GLYCOL 3350 17gm PACKET PO SCH (08:19)
[2018-05-31] MEDS: DOCUSATE SODIUM 100 MG CAPSULE PO SCH ×2 (08:19→20:12)
--- NOTE | 2018-05-31 08:28 | General Surgery Progress Note ---
Subjective Patient reports: pain is less (left lower leg, although expects increase in pain after debridement and replacing wound vac today in the OR), tolerating a regular diet, voiding w/o difficulty, bowel movement (normal), afebrile Narrative: Feeling "tired, not sleepy,just tired." Denies chest pain, SOA, abd pain, nausea. Instill wound vac has remained in place all weekend. Dr. Ceron and Araceli have evaluated the right foot fx and determined she can WBAT with post-op shoe. Pt states she was able to walk most of the way to rehab while holding on to the wheelchair. - Vital Signs Last Vital Signs Temp 98.2 F 05/31/18 03:29 Pulse 72 05/31/18 03:29 Resp 16 05/31/18 03:29 BP 136/78 05/31/18 03:29 Pulse Ox 97 05/31/18 03:29 - Laboratory Result Diagrams: 05/31/18 03:43 05/25/18 08:06 Laboratory Tests 05/28/18 05/28/18 05/29/18 04:07 14:52 03:46 Hgb 7.1 L D 7.2 L 7.0 L 05/30/18 05/31/18 04:10 03:43 Hgb 6.8 L 6.6 L - Radiology 05/28 Right foot x-ray Right foot: Oblique minimally displaced fracture of the fifth metatarsal midshaft extending towards the neck. This does not involve the joint space. No additional fracture. No dislocation. Impression: Left foot: No acute osseous abnormality. Right foot: Closed post traumatic fifth metatarsal fracture. Left ankle x-ray Findings: Left ankle: Age-indeterminate avulsion fracture from the fibular tip measuring 4 to 5 mm in size. No additional areas concerning for fracture. No dislocation. The ankle mortise is symmetric and the talar dome intact. Right ankle: No acute fracture or dislocation seen in the ankle. Fifth metatarsal shaft fracture is better seen on the dedicated foot radiographs. The ankle mortise is symmetric and the talar dome intact. Impression: Left ankle: Age-indeterminate fibular tip avulsion fracture. Right ankle: No acute fracture in the ankle. - Abnormal Exam Abdominal: obese Skin: Vac foam nicely compressed, canister with minimal amount of lightly blood tinged clear fluid, canister has been changed as needed. - Normal Exam General: awake, alert, oriented, no acute distress Cardiovascular: regular rhythm, regular rate Respiratory: no labored breathing Abdominal: soft, non-tender Psychiatric: normal affect Assessment and Plan (1) Degloving injury of left lower leg Current Visit: No Status: Acute Qualifiers: Encounter type: initial encounter Qualified Code(s): S81.802A - Unspecified open wound, left lower leg, initial encounter Problem details: left (2) Lateral malleolar fracture Current Visit: No Status: Acute Qualifiers: Encounter type: initial encounter Fracture type: closed Fracture alignment: nondisplaced Laterality: left Qualified Code(s): S82.65XA - Nondisplaced fracture of lateral malleolus of left fibula, initial encounter for closed fracture (3) Metatarsal bone fracture Current Visit: No Status: Acute Qualifiers: Encounter type: initial encounter Metatarsal bone: fifth Fracture type: closed Fracture alignment: nondisplaced Laterality: right Qualified Code(s ): S92.354A - Nondisplaced fracture of fifth metatarsal bone, right foot, initial encounter for closed fracture (4) Hypertension Current Visit: No Status: Chronic Qualifiers: Hypertension type: essential hypertension Qualified Code(s): I10 - Essential (primary) hypertension (5) Osteoarthritis Current Visit: No Status: Chronic Qualifiers: Osteoarthritis location: unspecified site Osteoarthritis type: unspecified Qualified Code(s): M19.90 - Unspecified osteoarthritis, unspecified site (6) Acute blood loss anemia Current Visit: No Status: Acute Plan: HGB has dipped to 6.6, she is slightly symptomatic with this, fatigue, 1 unit PRBC already ordered Ortho consulted earlier for weight baring recommendations and care of metatarsal and fibular fx, she may WBAT with post op shoe. She will return to the OR today for debridement and replace Instill wound vac. Continue Kefzol Q8. Monitor anemia. Hospital Course Summary Disclaimer: The visit summary below is not to be considered part of the above Progress Note. Hospital Course: 05/25/2018 POD #1 Post surgical pain not well controlled with Morphine, will add [place] 10 and DC Ultram. Continue Stool softener Continue Cefazolin 1GM Q8H Continue most home meds. Start Lovenox tomorrow (last dose Eliquis 05/23 PM) Continue wound vac, with likely return to OR on for additional debridement and replacement of vac. 05/27 Plan return to OR today, probably late afternoon, for additional debridement if needed and replace wound vac. Continue IV ABX, working on a wheelchair ramp at home. Will have a better idea of potential discharge after today's debridement. Home vac is already available. Will have wound clinic do vac changes twice a week upon discharge. 05/28 Additional necrotic tissue had to be derided yesterday. Instill vac applied. Will continue Davilla and Motrin prn for pain. Mirilax to prevent constipation. PT to help with safe ambulation. AM HGB 7.1, repeat in the afternoon 7.2 Plan on return to the OR on Thursday with Dr. Reece for another look, debridement if needed, and re-placement of Instill vac 05/31 HGB has dipped to 6.6, she is slightly symptomatic with this, fatigue, 1 unit PRBC already ordered Ortho consulted on 05/28 for weight bearing recommendations and care of metatarsal and fibular fx, she may WBAT with post op shoe. She will return to the OR today for debridement and replace Instill wound vac. Continue Kefzol Q8. Monitor anemia.
--- NOTE | 2018-05-31 08:53 | Progress Note ---
DATE 05/30/2018 HISTORY OF PRESENT ILLNESS The patient continues to do well. She is receiving intravenous Kefzol. She does have the Instill wound VAC in place at the anterior surface of the left lower leg. PHYSICAL EXAMINATION VITAL SIGNS: Temperature is 98.9 degrees Fahrenheit oral. Pulse is 74. Respiratory rate is 18. Blood pressure is 127/65. Oxygen saturation is 94% on room air. EXTREMITIES: The patient has an Instill VAC in place at the anterior surface of the left lower leg. The skin around the Instill VAC has a satisfactory appearance. The Instill VAC looks good. LABORATORY DATA White blood cell count is 9100. Hemoglobin is 6.8. Hematocrit is 23.1. IMPRESSION 1. Degloving injury at left lower extremity. 2. Anemia. PLAN 1. Continue intravenous Kefzol. 2. Continue Instill VAC over the weekend. 3. Dr. Reece does plan to take the patient back to the operating room for an Instill VAC dressing change and possible debridement on 05/31/2018. 4. Recheck CBC tomorrow. AHMET
[2018-05-31] MEDS: MORPHINE SULFATE 4mg INJECTION IVP PRN ×2 (10:31→20:11)
--- NOTE | 2018-05-31 10:55 | Anesthesia Preoperative Report ---
Anesthesia Preoperative Record - Date and Time Date: 05/31/18 Preoperative Diagnosis: Surgical Debridement Lt Lower Leg NPO Since Date: 05/30/18 NPO Since Time: 23:00 Allergies/Adverse Reactions: Allergies Allergy/AdvReac Type Severity Reaction Status Date / Time adhesive Allergy Unknown ITCHING, Verified 12/23/17 14:53 RASH Sulfa (Sulfonamide Allergy Unknown N&V Verified 12/23/17 14:53 Antibiotics) Choline Fenofibrate Allergy Unknown MUSCLE Uncoded 12/23/17 14:53 CRAMPS diclofenac potassium Allergy Unknown STOMACH Uncoded 12/23/17 14:53 DISTRESS oxycodone HCl AdvReac Unknown ITCH Uncoded 12/23/17 14:53 statins AdvReac Uncoded 12/23/17 14:53 - Vital Signs Vital Signs: Temperature 98.3 F 05/31/18 10:50 Pulse Rate 80 05/31/18 10:50 Respiratory Rate 16 05/31/18 10:50 Blood Pressure 201/80 H 05/31/18 10:50 Pulse Oximetry 99 05/31/18 10:50 Height and Weight: Height 5 ft 4 in Weight 108.3 kg Body Mass Index 40.6 - Medications Inpatient Medications: Current Medications Hydrocodone Bitart/Acetaminophen ([place] 10/325) 1 tab PO Q4H PRN PRN Reason: Pain Last Admin: 05/31/18 00:08 Dose: 1 tab Hydrocodone Bitart/Acetaminophen ([place] 5/325) 1 - 2 tab PO Q5H PRN PRN Reason: Pain Amlodipine Besylate (Norvasc) 2.5 mg PO HS [facility] Last Admin: 05/30/18 20:24 Dose: Not Given Docusate Sodium (Colace) 100 mg PO BID [facility] Last Admin: 05/31/18 08:19 Dose: Not Given Enoxaparin Sodium (Lovenox) 40 mg SQ DAILY [facility] Last Admin: 05/31/18 08:08 Dose: 40 mg Ferrous Gluconate (Fergon) 324 mg PO WB [facility] Last Admin: 05/31/18 08:18 Dose: Not Given Cefazolin Sodium 1 g/ Sodium (Chloride) 100 mls @ 200 mls/hr IV Q8HR [facility] Last Infusion: 05/31/18 08:38 Dose: Infused Lactated Ringer's (Lactated Ringers) 1,000 mls @ 125 mls/hr IV .Q8H [facility] Last Infusion: 05/31/18 08:38 Dose: 0 mls/hr Ibuprofen (Motrin) 600 mg PO Q6H PRN PRN Reason: Pain Lisinopril (Prinivil) 20 mg PO [facility] Last Admin: 05/30/18 20:24 Dose: Not Given Metoprolol Succinate (Toprol Xl) 100 mg PO [facility] Last Admin: 05/30/18 20:24 Dose: Not Given Morphine Sulfate (Morphine Sulfate Inj) 1 - 4 mg IVP Q2H PRN PRN Reason: Pain Last Admin: 05/31/18 10:31 Dose: 2 mg Omeprazole (Prilosec) 20 mg PO [facility] Last Admin: 05/30/18 20:25 Dose: Not Given Ondansetron HCl (Zofran Odt Tablet) 4 mg PO Q4H PRN PRN Reason: Nausea &/or vomiting Polyethylene Glycol (Miralax) 17 gm PO DAILY [facility] Last Admin: 05/31/18 08:19 Dose: Not Given Pramipexole Dihydrochloride (Mirapex) 0.125 mg PO [facility] Last Admin: 05/30/18 20:25 Dose: Not Given Rizatriptan Benzoate (Maxalt 5 Mg) 10 mg PO DAILY PRN PRN Reason: Headache Sodium Chloride (Normal Saline) 500 ml IV PRN PRN Last Admin: 05/26/18 16:49 Dose: 500 ml Sodium Chloride (Iv Flush) 10 - 80 ml IV PRN PRN PRN Reason: Flushing Last Admin: 05/26/18 16:49 Dose: 10 ml Tramadol HCl (Ultram) 50 mg PO Q4H PRN PRN Reason: Pain Last Admin: 05/28/18 01:34 Dose: 50 mg Zolpidem Tartrate (Ambien) 5 mg PO [facility] Last Admin: 05/30/18 21:04 Dose: 5 mg Home Medications: Home Medications Medication Instructions Recorded Confirmed Type Omeprazole/Sodium Bicarbonate 1 cap PO HS #0 09/20/12 05/24/18 History [Zegerid 20 mg Capsule] hydrochlorothiazide 12.5 mg tablet 12.5 mg PO HS 10/26/17 05/24/18 History Acetaminophen [Acetaminophen Extra 1,000 mg PO Q6HR PRN 05/17/18 05/24/18 History Strength] Amlodipine [Norvasc] 2.5 mg PO HS 05/17/18 05/24/18 History Lisinopril [Prinivil] 20 mg PO HS 05/17/18 05/24/18 History Metoprolol Succinate [Toprol Xl] 100 mg PO HS 05/17/18 05/24/18 History PEG 3350 17gm PACKET [Miralax] 17 gm PO DAILY 05/17/18 05/24/18 History Pramipexole Di-HCl [Mirapex] 0.125 mg PO HS 05/17/18 05/24/18 History Rizatriptan Benzoate [Maxalt] 10 mg PO DAILY PRN 05/17/18 05/24/18 History Docusate Sodium [Colace] 100 mg PO BID cap 05/24/18 05/24/18 Rx Ferrous Gluconate [Fergon] 324 mg PO WB tab 05/24/18 05/24/18 Rx Hydrocodone/APAP 10/325 [[place] 1 - 2 tab PO Q4H PRN tab 05/24/18 05/24/18 Rx 10/325] Tramadol [Ultram] 50 mg PO Q4H PRN tab 05/24/18 05/24/18 Rx Zolpidem [Ambien] 5 mg PO HS tab 05/24/18 05/24/18 Rx Is Patient on Beta Euse[place]?: Yes Beta Eusebio Last Dose Date/Time: 05/26/18 @ 2000 - Medical History Respiratory: DENIES: Sleep Apnea Cardiovascular: Reports: Hypertension, High Cholesterol Gastrointestional: Reports: Gastroesophageal Reflux Disease, Hiatal Hernia Neuro/Musculoskeletal: Reports: Back Problems (HERNIATED DISC IN BACK) Other History: DENIES: Anesthesia Reactions - Surgical History HEENT Surgeries: Reports: Tonsillectomy Cardiac Surgeries/Treatments: Reports: Cardiac Catheterization (2008- ) GI Surgery/Treatments: Reports: Colonoscopy, EGD Musculoskeletal Surgery/Tx: Reports: Shoulder Arthroscopy (7 anchors R shoulder , PIP joint remove L toe x2), Total Knee Replacement (Rt) Reproductive Surgery/Treatment: Reports: Section, Tubal Ligation Anesthesia Reactions: None Hx Family Anesthesia Reaction: No History of Motion Sickness: No - Social History Smoking Status: Never smoker Hx Chewing Tobacco Use: No Second Hand Exposure: No Substance Use Type: does not use Alcohol Intake: never Alcohol Intake Frequency: does not drink - Pertinent Findings Laboratory: CBC and BMP 05/31/18 03:43 05/25/18 08:06 EKG: Sinus Rhythm - Physical Exam Respiratory Exam: Present: lungs clear, bilateral breath sounds equal Cardiovascular Exam: Present: regular rate and rhythm - Airway Assessment Mallampati Score: II TMD: 3 Fingerbreadths Neck Extension: good Overall Assessment: may be difficult mask vent, may be difficult intubation - ASA ASA Score: 3 - Plan Anesthesia: General TIVA - Discussion Discussion: Discussed risks/options/alternatives of anesthesia and questions answered. Patient consents. Nursing pain assessment noted. Present for Discussion: spouse Attestation Statement: Prior to the delivery of any anesthetic medication, I examined the patient, developed the plan, obtained the patient's consent and discussed the risk and benefits of the procedure with the patient/guardian. - Additional Information Seen by Anesthesia: Yes
[2018-05-31] MEDS ORDERED: LR 1,000 ML IV SCH (11:00)
[2018-05-31] MEDS ORDERED: MIDAZOLAM 2mg/2ml INJECTION ONE (11:24)
[2018-05-31] MEDS ORDERED: MORPHINE SULFATE 10mg/ml VIAL ONE (11:24)
[2018-05-31] MEDS ORDERED: PROPOFOL 500 MG/50 ML VIAL ONE (11:25)
--- NOTE | 2018-05-31 12:36 | General Surgery Procedure Note ---
Date of Procedure: 05/31/18 Surgeon: Chevy Anesthesia: General TIVA ASA Score: 3 Postoperative Diagnosis: traumatic wound left lower leg with necrosis Procedure: sharp debridement of 120 cm2 subcutaneous tissue of left lower extremity ( application of instill vac by wound nurse).
[2018-05-31] MEDS ORDERED: PROPOFOL 20 ML ONE (12:44)
[2018-05-31] MEDS: MORPHINE SULFATE 10mg/ml VIAL IVP PRN ×2 (12:57→13:08)
--- NOTE | 2018-05-31 13:51 | Anesthesia Postoperative Note ---
- Date and Time Date: 05/31/18 Time: 13:51 - Status Patient Participated in Evaluation: Patient Participated in Person Vital Signs: Temperature 97.7 F 05/31/18 13:25 Pulse Rate 69 05/31/18 13:38 Respiratory Rate 16 05/31/18 13:45 Blood Pressure 155/70 H 05/31/18 13:38 Pulse Oximetry 97 05/31/18 13:38 Respiratory Function: Airway Patent Cardiovascular Function: Regular Pulse EKG: Sinus Rhythm Mental Status: Alert and Oriented Pain Intensity: 4 Hydration: Taking PO Fluids Complications During Recover: None Apparent - Follow-Up Instructions Instructions: Per Surgeon
[2018-05-31] MEDS: LISINOPRIL 20 MG TABLET PO SCH (20:12)
[2018-05-31] MEDS: PRAMIPEXOLE 0.25 MG TABLET PO SCH (20:12)
[2018-05-31] MEDS: AMLODIPINE 2.5 MG TABLET PO SCH (20:12)
[2018-05-31] MEDS: OMEPRAZOLE 20 MG CAPSULE PO SCH (20:12)
--- NOTE | 2018-05-31 20:20 | Operative Note ---
DATE OF OPERATION 05/31/2018 SURGEON Guero Reece MD PREOPERATIVE DIAGNOSIS Traumatic wound at the left leg. POSTOPERATIVE DIAGNOSIS Traumatic wound of the left leg with minimal residual necrotic tissue. PROCEDURE Excisional debridement of 120 cm2 of subcutaneous tissue from the left lower extremity. The patient also had application of an Instill VAC back by the wound nurse following the procedure. ANESTHESIA TIVA ASA Class 3 INDICATIONS The patient is a 62-year-old female that unfortunately developed a traumatic wound to her anterior left leg. Dr. Leung has been taking care of this with multiple debridements. She was scheduled for a return trip to the operating room today but Dr. Leung was out of town so I was covering. FINDINGS The wound bed did appear to be healing fairly well considering the situation. Of the wound surface area there was 60% granulation tissue and 40% slough in the subcutaneous layer. There did not appear to be any necrotic fascia. There was granulation tissue beginning to form over the anterior tibia. DESCRIPTION OF PROCEDURE After informed consent was obtained the patient was taken to the operating room. IV anesthesia was administered by the anesthesia team. The patient's wound VAC was removed and the wound was prepped using Betadine and was draped in the usual sterile fashion. The Betadine was irrigated out of the wound. The surface was then inspected and areas of necrotic slough were debrided sharply with a curette and scissors along with pickups until all of the slough was removed from the subcutaneous layer. The debridement was performed back to healthy bleeding tissue. Hemostasis within the wound was achieved with pressure. The wound was irrigated again to be sure that hemostasis was adequate. The wound was then turned over to the wound team who was planning to apply an Instill wound VAC. The patient tolerated the procedure well. The overall dimensions of the wound were 16 x 19 cm and 40% of the wound surface was debrided. MTDD
[2018-05-31] MEDS: ZOLPIDEM 5 MG TABLET PO SCH (21:56)
[2018-06-01] MEDS: CEFAZOLIN 1 G in NS 100 ML IV SCH ×3 (00:08→17:07)
[2018-06-01] MEDS: NS FLUSH BAG 500ml IV PRN (00:08)
[2018-06-01] MEDS: SALINE FLUSH 10ml SYRINGE IV PRN (00:09)
[2018-06-01] MEDS: HYDROCODONE/APAP 10 MG/325 MG TABLET PO PRN ×4 (04:18→19:49)
[2018-06-01] MEDS: DOCUSATE SODIUM 100 MG CAPSULE PO SCH ×2 (08:43→21:47)
[2018-06-01] MEDS: ENOXAPARIN 40 MG/0.4 ML INJECTION SQ SCH (08:43)
[2018-06-01] MEDS: FERROUS GLUCONATE 324 MG TABLET PO SCH (08:43)
[2018-06-01] MEDS: POLYETHYL GLYCOL 3350 17gm PACKET PO SCH (08:44)
--- NOTE | 2018-06-01 08:50 | General Surgery Progress Note ---
Subjective Patient reports: tolerating a regular diet, voiding w/o difficulty, bowel movement, afebrile Narrative: Post op left lower leg pain yesterday was again just as bad as the prior 2 debridements except was more localized to the perimeter, not so much in the center of the wound. She thinks Dr. Reece is considering return to OR for vac change on , but is not sure. Her feeling of fatigue improved after 1 unit PRBC, HGB now up to 7.8 after being 6.6 during the night before surgery. Denies nausea, chest pain, SOA. She is able to WBAT right foot, ortho is following the right foot and left lower leg fx. - Vital Signs Last Vital Signs Temp 97.4 F 06/01/18 07:23 Pulse 72 06/01/18 07:23 Resp 15 06/01/18 07:23 BP 145/72 H 06/01/18 07:23 Pulse Ox 94 06/01/18 07:23 - Laboratory Result Diagrams: 06/01/18 04:10 05/25/18 08:06 - Abnormal Exam Abdominal: obese Skin: Instill Wound vac with valiente foam nicely compressed, fluid in canister very minimally pink, less than yesterday. Yana-wound slightly erythematous/ hyperemic. - Normal Exam General: awake, alert, oriented, no acute distress Cardiovascular: regular rhythm, regular rate Respiratory: clear bilaterally, equal bilaterally, no labored breathing Abdominal: soft, no guarding, non-tender Psychiatric: normal affect Neurological: CN 2-12 grossly intact Assessment and Plan (1) Degloving injury of left lower leg Current Visit: No Status: Acute Qualifiers: Encounter type: initial encounter Qualified Code(s): S81.802A - Unspecified open wound, left lower leg, initial encounter Problem details: left (2) Lateral malleolar fracture Current Visit: No Status: Acute Qualifiers: Encounter type: initial encounter Fracture type: closed Fracture alignment: nondisplaced Laterality: left Qualified Code(s): S82.65XA - Nondisplaced fracture of lateral malleolus of left fibula, initial encounter for closed fracture (3) Metatarsal bone fracture Current Visit: No Status: Acute Qualifiers: Encounter type: initial encounter Metatarsal bone: fifth Fracture type: closed Fracture alignment: nondisplaced Laterality: right Qualified Code(s ): S92.354A - Nondisplaced fracture of fifth metatarsal bone, right foot, initial encounter for closed fracture (4) Hypertension Current Visit: No Status: Chronic Qualifiers: Hypertension type: essential hypertension Qualified Code(s): I10 - Essential (primary) hypertension (5) Osteoarthritis Current Visit: No Status: Chronic Qualifiers: Osteoarthritis location: unspecified site Osteoarthritis type: unspecified Qualified Code(s): M19.90 - Unspecified osteoarthritis, unspecified site (6) Acute blood loss anemia Current Visit: No Status: Resolved Plan: HGB up to 7.8 after 1 unit PRBC (6.6 prior to transfusion yesterday) She is on iron supplement, will add vit C to be given with the iron. Continue daily CBC Last chemistry was 1 week ago, will order BMP for tomorrow. Continue IV Cefazolin Dr. Reece to decide if return to OR on is needed, or if bedside vac change should be attempted. Thank you ortho for your care regarding the LE fractures. Hospital Course Summary Disclaimer: The visit summary below is not to be considered part of the above Progress Note. Hospital Course: 05/25/2018 POD #1 Post surgical pain not well controlled with Morphine, will add [place] 10 and DC Ultram. Continue Stool softener Continue Cefazolin 1GM Q8H Continue most home meds. Start Lovenox tomorrow (last dose Eliquis 05/23 PM) Continue wound vac, with likely return to OR on for additional debridement and replacement of vac. 05/27 Plan return to OR today, probably late afternoon, for additional debridement if needed and replace wound vac. Continue IV ABX, working on a wheelchair ramp at home. Will have a better idea of potential discharge after today's debridement. Home vac is already available. Will have wound clinic do vac changes twice a week upon discharge. 05/28 Additional necrotic tissue had to be derided yesterday. Instill vac applied. Will continue [place] and Motrin prn for pain. Mirilax to prevent constipation. PT to help with safe ambulation. AM HGB 7.1, repeat in the afternoon 7.2 Plan on return to the OR on Thursday with Dr. Reece for another look, debridement if needed, and re-placement of Instill vac 05/31 HGB has dipped to 6.6, she is slightly symptomatic with this, fatigue, 1 unit PRBC already ordered Ortho consulted on 05/28 for weight bearing recommendations and care of metatarsal and fibular fx, she may WBAT with post op shoe. She will return to the OR today for debridement and replace Instill wound vac. Continue Kefzol Q8. Monitor anemia. 06/01 HGB up to 7.8 after 1 unit PRBC (6.6 prior to transfusion yesterday) She is on iron supplement, will add vit C to be given with the iron. Continue daily CBC Last chemistry was 1 week ago, will order BMP for tomorrow. Continue IV Cefazolin Dr. Reece to decide if return to OR on is needed, or if bedside vac change should be attempted.
[2018-06-01] MEDS: ASCORBIC ACID 500 MG TABLET PO SCH (09:45)
[2018-06-01] MEDS: ZOLPIDEM 5 MG TABLET PO SCH (21:46)
[2018-06-01] MEDS: PRAMIPEXOLE 0.25 MG TABLET PO SCH (21:46)
[2018-06-01] MEDS: OMEPRAZOLE 20 MG CAPSULE PO SCH (21:46)
[2018-06-01] MEDS: TRAMADOL 50 MG TABLET PO PRN (21:46)
[2018-06-01] MEDS: AMLODIPINE 2.5 MG TABLET PO SCH (21:47)
[2018-06-01] MEDS: LISINOPRIL 20 MG TABLET PO SCH (21:47)
[2018-06-02] MEDS: CEFAZOLIN 1 G in NS 100 ML IV SCH ×3 (00:42→17:29)
[2018-06-02] MEDS: HYDROCODONE/APAP 10 MG/325 MG TABLET PO PRN ×4 (03:38→19:27)
[2018-06-02] MEDS: FERROUS GLUCONATE 324 MG TABLET PO SCH (07:50)
[2018-06-02] MEDS: SALINE FLUSH 10ml SYRINGE IV PRN (08:10)
[2018-06-02] MEDS: DOCUSATE SODIUM 100 MG CAPSULE PO SCH ×2 (08:11→21:26)
[2018-06-02] MEDS: ENOXAPARIN 40 MG/0.4 ML INJECTION SQ SCH (08:11)
[2018-06-02] MEDS: POLYETHYL GLYCOL 3350 17gm PACKET PO SCH (08:11)
[2018-06-02] MEDS: ASCORBIC ACID 500 MG TABLET PO SCH (08:11)
--- NOTE | 2018-06-02 08:18 | Progress Note ---
DATE OF VISIT 06/01/2018 REASON FOR VISIT Covering surgical care for Dr. Leung. SUBJECTIVE Rehana is doing well. She has no specific complaints today. She is using [place] for pain control. OBJECTIVE VITAL SIGNS: Afebrile with stable vitals on room air. GENERAL: The patient is awake and alert, in no acute distress. EXTREMITIES: Her wound VAC in the left lower extremity is doing well with a good seal and good compression of the wound VAC sponge. LABORATORY DATA Hemoglobin is 7.8. IMPRESSION 1. Traumatic wound of the left leg - stable. 2. Left malleolar fracture - stable. 3. Right metatarsal bone fracture - stable. 4. Hypertension - chronic. 5. Osteoarthritis - chronic. 6. Acute blood loss anemia - improved after transfusion yesterday. PLAN 1. I do think that that will need another wound VAC change in the operating room with possible debridement on since she still had some slough on yesterday's procedure. I also do not think she will tolerate the pain of a wound VAC change at the bedside. 2. Continue IV cefazolin. Please see separate progress note from today by Basil Costa APRN. I do agree with her documentation. MTDD
--- NOTE | 2018-06-02 11:16 | General Surgery Progress Note ---
Subjective Narrative: She experienced some fecal urgency this morning after albanian toast with heavy syrup and caffeinated coffee. Still feeling some lower GI "rumblings and discomfort." Denies nausea, SOA, chest pain. The left lower leg is a little tender in areas when "bumped" but generally non-tender. She is anticipating return to the OR tomorrow for another look, possible additional debridement and replace Instill Wound vac by Dr. Reece. The pre blood transfusion fatigue has not returned. - Vital Signs Last Vital Signs Temp 96.9 F 06/02/18 07:55 Pulse 72 06/02/18 07:55 Resp 16 06/02/18 08:53 BP 134/71 06/02/18 07:55 Pulse Ox 94 06/02/18 07:55 - Laboratory Result Diagrams: 06/02/18 04:05 06/02/18 04:05 - Abnormal Exam Abdominal: obese Skin: Instill wound vac valiente foam nicely compressed, no leak noted on machine. Yana wound pink/hyperemic and tender at the borders to palpation. - Normal Exam General: awake, alert, oriented, no acute distress Cardiovascular: regular rhythm, regular rate Respiratory: no labored breathing Abdominal: soft, no guarding, non-tender Psychiatric: normal affect Neurological: CN 2-12 grossly intact Assessment and Plan (1) Degloving injury of left lower leg Current Visit: No Status: Acute Qualifiers: Encounter type: initial encounter Qualified Code(s): S81.802A - Unspecified open wound, left lower leg, initial encounter Problem details: left (2) Lateral malleolar fracture Current Visit: No Status: Acute Qualifiers: Encounter type: initial encounter Fracture type: closed Fracture alignment: nondisplaced Laterality: left Qualified Code(s): S82.65XA - Nondisplaced fracture of lateral malleolus of left fibula, initial encounter for closed fracture (3) Metatarsal bone fracture Current Visit: No Status: Acute Qualifiers: Encounter type: initial encounter Metatarsal bone: fifth Fracture type: closed Fracture alignment: nondisplaced Laterality: right Qualified Code(s ): S92.354A - Nondisplaced fracture of fifth metatarsal bone, right foot, initial encounter for closed fracture (4) Hypertension Current Visit: No Status: Chronic Qualifiers: Hypertension type: essential hypertension Qualified Code(s): I10 - Essential (primary) hypertension (5) Osteoarthritis Current Visit: No Status: Chronic Qualifiers: Osteoarthritis location: unspecified site Osteoarthritis type: unspecified Qualified Code(s): M19.90 - Unspecified osteoarthritis, unspecified site (6) Acute blood loss anemia Current Visit: No Status: Resolved Plan: HGB has remained stable, 7.8 today. BMP today unremarkable, see labs Pain controlled with [place]. She is appropriately "refusing" Mirilax. If she were to develop diarrhea, will want to do C-diff test. Plan return to OR tomorrow with Dr. Reece for possible additional debridement and replace Instill Wound vac. Hospital Course Summary Disclaimer: The visit summary below is not to be considered part of the above Progress Note. Hospital Course: 05/25/2018 POD #1 Post surgical pain not well controlled with Morphine, will add [place] 10 and DC Ultram. Continue Stool softener Continue Cefazolin 1GM Q8H Continue most home meds. Start Lovenox tomorrow (last dose Eliquis 05/23 PM) Continue wound vac, with likely return to OR on for additional debridement and replacement of vac. 05/27 Plan return to OR today, probably late afternoon, for additional debridement if needed and replace wound vac. Continue IV ABX, working on a wheelchair ramp at home. Will have a better idea of potential discharge after today's debridement. Home vac is already available. Will have wound clinic do vac changes twice a week upon discharge. 05/28 Additional necrotic tissue had to be derided yesterday. Instill vac applied. Will continue [place] and Motrin prn for pain. Mirilax to prevent constipation. PT to help with safe ambulation. AM HGB 7.1, repeat in the afternoon 7.2 Plan on return to the OR on Thursday with Dr. Reece for another look, debridement if needed, and re-placement of Instill vac 05/31 HGB has dipped to 6.6, she is slightly symptomatic with this, fatigue, 1 unit PRBC already ordered Ortho consulted on 05/28 for weight bearing recommendations and care of metatarsal and fibular fx, she may WBAT with post op shoe. She will return to the OR today for debridement and replace Instill wound vac. Continue Kefzol Q8. Monitor anemia. 06/01 HGB up to 7.8 after 1 unit PRBC (6.6 prior to transfusion yesterday) She is on iron supplement, will add vit C to be given with the iron. Continue daily CBC Last chemistry was 1 week ago, will order BMP for tomorrow. Continue IV Cefazolin Dr. Reece to decide if return to OR on is needed, or if bedside vac change should be attempted.
[2018-06-02] MEDS: AMLODIPINE 2.5 MG TABLET PO SCH (20:55)
[2018-06-02] MEDS: PRAMIPEXOLE 0.25 MG TABLET PO SCH (20:56)
[2018-06-02] MEDS: LISINOPRIL 20 MG TABLET PO SCH (20:56)
[2018-06-02] MEDS: ZOLPIDEM 5 MG TABLET PO SCH (20:56)
[2018-06-02] MEDS: OMEPRAZOLE 20 MG CAPSULE PO SCH (20:57)
[2018-06-03] MEDS: SALINE FLUSH 10ml SYRINGE IV PRN ×5 (00:48→23:58)
[2018-06-03] MEDS: CEFAZOLIN 1 G in NS 100 ML IV SCH ×3 (00:49→18:04)
[2018-06-03] MEDS: NS FLUSH BAG 500ml IV PRN ×2 (00:50→12:22)
[2018-06-03] MEDS: HYDROCODONE/APAP 10 MG/325 MG TABLET PO PRN ×3 (03:34→21:00)
--- NOTE | 2018-06-03 09:01 | General Surgery Progress Note ---
Subjective Patient reports: no new complaints (left lower leg still quite tender in some areas), tolerating a regular diet, voiding w/o difficulty, bowel movement (no problem with fecal urgency since the episode after breakfast yesterday), afebrile - Vital Signs Last Vital Signs Temp 97.4 F 06/03/18 07:28 Pulse 64 06/03/18 07:28 Resp 16 06/03/18 07:28 BP 125/78 06/03/18 07:28 Pulse Ox 96 06/03/18 07:28 - Laboratory Result Diagrams: 06/03/18 04:05 06/02/18 04:05 - Abnormal Exam Skin: wound vac with valiente foam in tact, serous looking fluid in the canister, anticipate debridement in the OR and vac change this morning. - Normal Exam General: awake, alert, oriented, no acute distress Cardiovascular: regular rate Respiratory: no labored breathing Abdominal: soft, non-tender Psychiatric: normal affect Neurological: CN 2-12 grossly intact Assessment and Plan (1) Degloving injury of left lower leg Current Visit: No Status: Acute Qualifiers: Encounter type: initial encounter Qualified Code(s): S81.802A - Unspecified open wound, left lower leg, initial encounter Problem details: left (2) Lateral malleolar fracture Current Visit: No Status: Acute Qualifiers: Encounter type: initial encounter Fracture type: closed Fracture alignment: nondisplaced Laterality: left Qualified Code(s): S82.65XA - Nondisplaced fracture of lateral malleolus of left fibula, initial encounter for closed fracture (3) Metatarsal bone fracture Current Visit: No Status: Acute Qualifiers: Encounter type: initial encounter Metatarsal bone: fifth Fracture type: closed Fracture alignment: nondisplaced Laterality: right Qualified Code(s ): S92.354A - Nondisplaced fracture of fifth metatarsal bone, right foot, initial encounter for closed fracture (4) Hypertension Current Visit: No Status: Chronic Qualifiers: Hypertension type: essential hypertension Qualified Code(s): I10 - Essential (primary) hypertension (5) Osteoarthritis Current Visit: No Status: Chronic Qualifiers: Osteoarthritis location: unspecified site Osteoarthritis type: unspecified Qualified Code(s): M19.90 - Unspecified osteoarthritis, unspecified site Plan: continuing Cephazolin IV Q8hr. plan on return to the OR today for additional debridement if needed and replace vac. She likely will need sedation for at least 1-2 more vac changes, depending on how much is debrided today. We discussed the process of starting bedside vac changes with IV and oral pain medication after there has been some granulation formation which would lessen the pain. Then gradually try PO pain medication for vac changes. PO med pain control is needed before she can be discharged. She understands and is hoping this transition to PO pain meds happens quickly. Hospital Course Summary Disclaimer: The visit summary below is not to be considered part of the above Progress Note. Hospital Course: 05/25/2018 POD #1 Post surgical pain not well controlled with Morphine, will add [place] 10 and DC Ultram. Continue Stool softener Continue Cefazolin 1GM Q8H Continue most home meds. Start Lovenox tomorrow (last dose Eliquis 05/23 PM) Continue wound vac, with likely return to OR on for additional debridement and replacement of vac. 05/27 Plan return to OR today, probably late afternoon, for additional debridement if needed and replace wound vac. Continue IV ABX, working on a wheelchair ramp at home. Will have a better idea of potential discharge after today's debridement. Home vac is already available. Will have wound clinic do vac changes twice a week upon discharge. 05/28 Additional necrotic tissue had to be derided yesterday. Instill vac applied. Will continue [place] and Motrin prn for pain. Mirilax to prevent constipation. PT to help with safe ambulation. AM HGB 7.1, repeat in the afternoon 7.2 Plan on return to the OR on Thursday with Dr. Reece for another look, debridement if needed, and re-placement of Instill vac 05/31 HGB has dipped to 6.6, she is slightly symptomatic with this, fatigue, 1 unit PRBC already ordered Ortho consulted on 05/28 for weight bearing recommendations and care of metatarsal and fibular fx, she may WBAT with post op shoe. She will return to the OR today for debridement and replace Instill wound vac. Continue Kefzol Q8. Monitor anemia. 06/01 HGB up to 7.8 after 1 unit PRBC (6.6 prior to transfusion yesterday) She is on iron supplement, will add vit C to be given with the iron. Continue daily CBC Last chemistry was 1 week ago, will order BMP for tomorrow. Continue IV Cefazolin Dr. Reece to decide if return to OR on is needed, or if bedside vac change should be attempted. 06/02 HGB has remained stable, 7.8 today. BMP today unremarkable, see labs Pain controlled with [place]. She is appropriately "refusing" Mirilax. If she were to develop diarrhea, will want to do C-diff test. Plan return to OR tomorrow with Dr. Reece for possible additional debridement and replace Instill Wound vac. 06/03 Continuing Cephazolin IV Q8hr. Return to the OR today for additional debridement if needed and replace vac. She likely will need sedation for at least 1-2 more vac changes, depending on how much is debrided today. We discussed the process of starting bedside vac changes with IV and oral pain medication after there has been some granulation formation which would lessen the pain. Then gradually try PO pain medication for vac changes. PO med pain control is needed before she can be discharged. She understands and is hoping this transition to PO pain meds happens quickly.
--- NOTE | 2018-06-03 09:09 | Anesthesia Preoperative Report ---
Anesthesia Preoperative Record - Date and Time Date: 06/03/18 Preoperative Diagnosis: Surgical Debridement Lt Lower Leg NPO Since Date: 06/02/18 Allergies/Adverse Reactions: Allergies Allergy/AdvReac Type Severity Reaction Status Date / Time adhesive Allergy Unknown ITCHING, Verified 12/23/17 14:53 RASH Sulfa (Sulfonamide Allergy Unknown N&V Verified 12/23/17 14:53 Antibiotics) Choline Fenofibrate Allergy Unknown MUSCLE Uncoded 12/23/17 14:53 CRAMPS diclofenac potassium Allergy Unknown STOMACH Uncoded 12/23/17 14:53 DISTRESS oxycodone HCl AdvReac Unknown ITCH Uncoded 12/23/17 14:53 statins AdvReac Uncoded 12/23/17 14:53 - Vital Signs Vital Signs: Temperature 97.4 F 06/03/18 07:28 Pulse Rate 64 06/03/18 07:28 Respiratory Rate 16 06/03/18 07:28 Blood Pressure 125/78 06/03/18 07:28 Pulse Oximetry 96 06/03/18 07:28 Height and Weight: Height 1.63 m Weight 108.4 kg Body Mass Index 40.6 - Medications Inpatient Medications: Current Medications Hydrocodone Bitart/Acetaminophen ([place] 10/325) 1 tab PO Q4H PRN PRN Reason: Pain Last Admin: 06/03/18 03:34 Dose: 1 tab Hydrocodone Bitart/Acetaminophen ([place] 5/325) 1 - 2 tab PO Q5H PRN PRN Reason: Pain Amlodipine Besylate (Norvasc) 2.5 mg PO [facility] Last Admin: 06/02/18 20:55 Dose: 2.5 mg Ascorbic Acid (Vitamin C) 1,000 mg PO DAILY [facility] Last Admin: 06/02/18 08:11 Dose: 1,000 mg Docusate Sodium (Colace) 100 mg PO BID [facility] Last Admin: 06/02/18 21:26 Dose: Not Given Enoxaparin Sodium (Lovenox) 40 mg SQ DAILY [facility] Last Admin: 06/02/18 08:11 Dose: 40 mg Ferrous Gluconate (Fergon) 324 mg PO WB [facility] Last Admin: 06/02/18 07:50 Dose: 324 mg Cefazolin Sodium 1 g/ Sodium (Chloride) 100 mls @ 200 mls/hr IV Q8HR [facility] Last Infusion: 06/03/18 01:40 Dose: Infused Ibuprofen (Motrin) 600 mg PO Q6H PRN PRN Reason: Pain Lisinopril (Prinivil) 20 mg PO [facility] Last Admin: 06/02/18 20:56 Dose: 20 mg Metoprolol Succinate (Toprol Xl) 100 mg PO [facility] Last Admin: 06/02/18 20:57 Dose: 100 mg Morphine Sulfate (Morphine Sulfate Inj) 1 - 4 mg IVP Q2H PRN PRN Reason: Pain Last Admin: 05/31/18 20:11 Dose: 2 mg Omeprazole (Prilosec) 20 mg PO [facility] Last Admin: 06/02/18 20:57 Dose: 20 mg Ondansetron HCl (Zofran Odt Tablet) 4 mg PO Q4H PRN PRN Reason: Nausea &/or vomiting Polyethylene Glycol (Miralax) 17 gm PO DAILY [facility] Last Admin: 06/02/18 08:11 Dose: 17 gm Pramipexole Dihydrochloride (Mirapex) 0.125 mg PO [facility] Last Admin: 06/02/18 20:56 Dose: 0.125 mg Rizatriptan Benzoate (Maxalt 5 Mg) 10 mg PO DAILY PRN PRN Reason: Headache Sodium Chloride (Normal Saline) 500 ml IV PRN PRN Last Admin: 06/03/18 00:50 Dose: 500 ml Sodium Chloride (Iv Flush) 10 - 80 ml IV PRN PRN PRN Reason: Flushing Last Admin: 06/03/18 00:48 Dose: 10 ml Tramadol HCl (Ultram) 50 mg PO Q4H PRN PRN Reason: Pain Last Admin: 06/01/18 21:46 Dose: 50 mg Zolpidem Tartrate (Ambien) 5 mg PO [facility] Last Admin: 06/02/18 20:56 Dose: 5 mg Home Medications: Home Medications Medication Instructions Recorded Confirmed Type Omeprazole/Sodium Bicarbonate 1 cap PO HS #0 09/20/12 05/24/18 History [Zegerid 20 mg Capsule] hydrochlorothiazide 12.5 mg tablet 12.5 mg PO 10/26/17 05/24/18 History Acetaminophen [Acetaminophen Extra 1,000 mg PO Q6HR PRN 05/17/18 05/24/18 History Strength] Amlodipine [Norvasc] 2.5 mg PO HS 05/17/18 05/24/18 History Lisinopril [Prinivil] 20 mg PO HS 05/17/18 05/24/18 History Metoprolol Succinate [Toprol Xl] 100 mg PO HS 05/17/18 05/24/18 History PEG 3350 17gm PACKET [Miralax] 17 gm PO DAILY 05/17/18 05/24/18 History Pramipexole Di-HCl [Mirapex] 0.125 mg PO HS 05/17/18 05/24/18 History Rizatriptan Benzoate [Maxalt] 10 mg PO DAILY PRN 05/17/18 05/24/18 History Docusate Sodium [Colace] 100 mg PO BID cap 05/24/18 05/24/18 Rx Ferrous Gluconate [Fergon] 324 mg PO WB tab 05/24/18 05/24/18 Rx Hydrocodone/APAP 10/325 [[place] 1 - 2 tab PO Q4H PRN tab 05/24/18 05/24/18 Rx 10/325] Tramadol [Ultram] 50 mg PO Q4H PRN tab 05/24/18 05/24/18 Rx Zolpidem [Ambien] 5 mg PO HS tab 05/24/18 05/24/18 Rx Is Patient on Beta Esuebio?: Yes - Medical History Respiratory: DENIES: Sleep Apnea Cardiovascular: Reports: Hypertension, High Cholesterol Gastrointestional: Reports: Gastroesophageal Reflux Disease, Hiatal Hernia, Morbid Obesity DENIES: Nausea or Vomiting Present Neuro/Musculoskeletal: Reports: Back Problems (HERNIATED DISC IN BACK) Other History: DENIES: Anesthesia Reactions - Surgical History HEENT Surgeries: Reports: Tonsillectomy Cardiac Surgeries/Treatments: Reports: Cardiac Catheterization (2008- ) GI Surgery/Treatments: Reports: Colonoscopy, EGD Musculoskeletal Surgery/Tx: Reports: Shoulder Arthroscopy (7 anchors R shoulder , PIP joint remove L toe x2), Total Knee Replacement (Rt) Reproductive Surgery/Treatment: Reports: Section, Tubal Ligation Anesthesia Reactions: None Hx Family Anesthesia Reaction: No History of Motion Sickness: No - Social History Smoking Status: Never smoker Hx Chewing Tobacco Use: No Second Hand Exposure: No Substance Use Type: does not use Alcohol Intake: never Alcohol Intake Frequency: does not drink - Pertinent Findings Laboratory: CBC and BMP 06/03/18 04:05 06/02/18 04:05 EKG: Sinus Rhythm - Physical Exam Respiratory Exam: Present: lungs clear, bilateral breath sounds equal Cardiovascular Exam: Present: regular rate and rhythm - Airway Assessment Mallampati Score: II TMD: 3 Fingerbreadths Neck Extension: fair Overall Assessment: may be difficult mask vent, may be difficult intubation - ASA ASA Score: 3 - Plan Anesthesia: General TIVA - Discussion Discussion: Discussed risks/options/alternatives of anesthesia and questions answered. Patient consents. Nursing pain assessment noted. Attestation Statement: Prior to the delivery of any anesthetic medication, I examined the patient, developed the plan, obtained the patient's consent and discussed the risk and benefits of the procedure with the patient/guardian. - Additional Information Seen by Anesthesia: Yes
[2018-06-03] MEDS ORDERED: FentaNYL 250 MCG/5 ML INJECTION ONE (10:07)
[2018-06-03] MEDS ORDERED: MIDAZOLAM 2mg/2ml INJECTION ONE (10:07)
[2018-06-03] MEDS ORDERED: PROPOFOL 500 MG/50 ML VIAL ONE (10:08)
[2018-06-03] MEDS ORDERED: HYDROMORPHONE 2 MG/ML INJECTION IVP PRN (10:16)
[2018-06-03] MEDS ORDERED: ONDANSETRON 4 MG/2 ML INJECTION IVP PRN (12:00)
[2018-06-03] MEDS: HYDROMORPHONE 2 MG/ML INJECTION IVP PRN (12:05)
--- NOTE | 2018-06-03 12:19 | Anesthesia Postoperative Note ---
- Date and Time Date: 06/03/18 Time: 12:18 - Status Patient Participated in Evaluation: Patient Participated in Person Vital Signs: Temperature 97.8 F 06/03/18 11:54 Pulse Rate 57 L 06/03/18 12:15 Respiratory Rate 16 06/03/18 12:10 Blood Pressure 133/75 06/03/18 12:15 Pulse Oximetry 95 06/03/18 12:15 Respiratory Function: Airway Patent, Regular Respirations Cardiovascular Function: Regular Pulse Mental Status: Alert and Oriented Pain Intensity: 3 Hydration: IV Infusing Nausea/Vomiting: None Complications During Recover: None Apparent - Follow-Up Instructions Instructions: Per Surgeon
[2018-06-03] MEDS: POLYETHYL GLYCOL 3350 17gm PACKET PO SCH (12:50)
[2018-06-03] MEDS: FERROUS GLUCONATE 324 MG TABLET PO SCH (14:48)
[2018-06-03] MEDS: ASCORBIC ACID 500 MG TABLET PO SCH (14:48)
[2018-06-03] MEDS: DOCUSATE SODIUM 100 MG CAPSULE PO SCH ×2 (14:49→21:25)
--- NOTE | 2018-06-03 16:19 | Progress Note ---
DATE OF VISIT 06/02/2018 REASON FOR VISIT Covering surgical care for Dr. Leung. BHARAT Kimball is doing well this evening. She has no complaints. She felt like she was doing so well that she did not need occupational therapy evaluation today. She says that she has been ambulating herself and washing her hair in the sink as well as taking care of all of her own feeding. OBJECTIVE VITALS: Afebrile with stable vitals on room air. GENERAL: The patient is awake and alert and in no acute distress. EXTREMITIES: Her wound VAC on the left anterior leg is well sealed with compression of the foam. LABORATORY DATA Hemoglobin 7.8. IMPRESSION 1. Traumatic wound of the left leg - stable. 2. Left malleolar fracture - stable. 3. Right metatarsal fracture - stable. 4. Hypertension - chronic, stable. 5. Osteoarthritis - chronic. 6. Acute blood loss anemia - stable. PLAN 1. Return to the operating room tomorrow for exploration with possible debridement and wound VAC change. 2. Continue IV cefazolin. See separate procedure note by Basil Costa APRN. I agree with her documentation. [facility]
[2018-06-03] MEDS: TRAMADOL 50 MG TABLET PO PRN (18:09)
[2018-06-03] MEDS: PRAMIPEXOLE 0.25 MG TABLET PO SCH (21:00)
[2018-06-03] MEDS: OMEPRAZOLE 20 MG CAPSULE PO SCH (21:01)
[2018-06-03] MEDS: AMLODIPINE 2.5 MG TABLET PO SCH (21:01)
[2018-06-03] MEDS: LISINOPRIL 20 MG TABLET PO SCH (21:01)
[2018-06-03] MEDS: ZOLPIDEM 5 MG TABLET PO SCH (21:15)
--- NOTE | 2018-06-04 08:18 | Operative Note ---
DATE OF OPERATION 06/03/2018 SURGEON Guero Reece MD PREOPERATIVE DIAGNOSIS Traumatic wound of the left leg. POSTOPERATIVE DIAGNOSIS Traumatic wound of the left leg with minimal residual necrotic tissue. PROCEDURE Excisional debridement of 55 cm2 of subcutaneous tissue from the left lower extremity. The patient also had application of Instill VAC by the wound nurse following the procedure. ANESTHESIA TIVA ASA CLASS 3 INDICATIONS The patient is a 62-year-old female that had developed a traumatic wound of the anterior left leg. This has been undergoing multiple debridements and her last debridement was on 05/31/2018. She was scheduled for reevaluation today. FINDINGS The wound bed did appear more healthy than the last debridement. The overall wound dimension was slightly smaller with the size of 15 x 19 cm. 80% of the surface area showed good granulation tissue with 40% slough in the subcutaneous layer. There was still fairly deep tunneling along the superior medial aspect of the wound under the skin flap. DESCRIPTION OF PROCEDURE After informed consent was obtained, the patient was taken the operating room. IV anesthesia was administered by the anesthesia team. The patient's wound VAC was removed and the wound was prepped using Betadine. It was draped in the usual sterile fashion. The surface area was then inspected and areas of necrotic slough were debrided sharply with a curette and Metzenbaum scissors. All of the slough was removed back to healthy bleeding tissue. There was one edge of the skin along the medial aspect that showed some necrosis. This was debrided with the cutting mode of the cautery and hemostasis of the skin edge was achieved with electrocautery. Once hemostasis was assured, the patient was turned over to the wound nurse who applied an Instill VAC. The overall dimensions of the wound were 15 x 19 cm and 20% of the wound surface was debrided. [facility]
[2018-06-04] MEDS: FERROUS GLUCONATE 324 MG TABLET PO SCH (08:24)
[2018-06-04] MEDS: DOCUSATE SODIUM 100 MG CAPSULE PO SCH ×2 (08:24→20:19)
[2018-06-04] MEDS: CEFAZOLIN 1 G in NS 100 ML IV SCH ×3 (08:24→17:48)
[2018-06-04] MEDS: SALINE FLUSH 10ml SYRINGE IV PRN (08:24)
[2018-06-04] MEDS: ASCORBIC ACID 500 MG TABLET PO SCH (08:24)
[2018-06-04] MEDS: ENOXAPARIN 40 MG/0.4 ML INJECTION SQ SCH (08:24)
--- NOTE | 2018-06-04 09:43 | General Surgery Progress Note ---
Subjective Narrative: She had more debridement LLE yesterday. She is having more trouble with loose stools, diarrhea. She was incontinent of stool this morning. She has been appropriately refusing the Mirilax for several days and will all stop the stool softener. Palpation does not cause abd pain, she just is feeling "queezy" and rumbling in the abd. and fears she will again "not make it" to the bathroom. - Vital Signs Last Vital Signs Temp 97.9 F 06/04/18 08:00 Pulse 67 06/04/18 08:00 Resp 16 06/04/18 08:00 BP 145/86 H 06/04/18 08:00 Pulse Ox 94 06/04/18 08:00 - Laboratory Result Diagrams: 06/04/18 08:49 06/02/18 04:05 - Abnormal Exam Abdominal: obese Skin: LLE wound vac foam in tact, nicely compressed, vac machine without indication of leak. - Normal Exam General: awake, alert, oriented, no acute distress Cardiovascular: regular rate Respiratory: equal bilaterally, no labored breathing Abdominal: soft, no guarding, non-tender Psychiatric: normal affect Neurological: CN 2-12 grossly intact Assessment and Plan (1) Degloving injury of left lower leg Current Visit: No Status: Acute Qualifiers: Encounter type: initial encounter Qualified Code(s): S81.802A - Unspecified open wound, left lower leg, initial encounter Problem details: left (2) Lateral malleolar fracture Current Visit: No Status: Acute Qualifiers: Encounter type: initial encounter Fracture type: closed Fracture alignment: nondisplaced Laterality: left Qualified Code(s): S82.65XA - Nondisplaced fracture of lateral malleolus of left fibula, initial encounter for closed fracture (3) Metatarsal bone fracture Current Visit: No Status: Acute Qualifiers: Encounter type: initial encounter Metatarsal bone: fifth Fracture type: closed Fracture alignment: nondisplaced Laterality: right Qualified Code(s ): S92.354A - Nondisplaced fracture of fifth metatarsal bone, right foot, initial encounter for closed fracture (4) Hypertension Current Visit: No Status: Chronic Qualifiers: Hypertension type: essential hypertension Qualified Code(s): I10 - Essential (primary) hypertension (5) Osteoarthritis Current Visit: No Status: Chronic Qualifiers: Osteoarthritis location: unspecified site Osteoarthritis type: unspecified Qualified Code(s): M19.90 - Unspecified osteoarthritis, unspecified site Plan: Less debridement yesterday of the LLE, granulation is growing but still likely enough pain that return to the OR on Thursday would be most beneficial for hopefully a last debridement. Then we could possibly start working toward vac change at bedside. Continue to monitor HGB and WBC. Both are stable today, With worsening diarrhea, will get a C-Diff. Hospital Course Summary Disclaimer: The visit summary below is not to be considered part of the above Progress Note. Hospital Course: 05/25/2018 POD #1 Post surgical pain not well controlled with Morphine, will add [place] 10 and DC Ultram. Continue Stool softener Continue Cefazolin 1GM Q8H Continue most home meds. Start Lovenox tomorrow (last dose Eliquis 05/23 PM) Continue wound vac, with likely return to OR on for additional debridement and replacement of vac. 05/27 Plan return to OR today, probably late afternoon, for additional debridement if needed and replace wound vac. Continue IV ABX, working on a wheelchair ramp at home. Will have a better idea of potential discharge after today's debridement. Home vac is already available. Will have wound clinic do vac changes twice a week upon discharge. 05/28 Additional necrotic tissue had to be derided yesterday. Instill vac applied. Will continue [place] and Motrin prn for pain. Mirilax to prevent constipation. PT to help with safe ambulation. AM HGB 7.1, repeat in the afternoon 7.2 Plan on return to the OR on Thursday with Dr. Reece for another look, debridement if needed, and re-placement of Instill vac 05/31 HGB has dipped to 6.6, she is slightly symptomatic with this, fatigue, 1 unit PRBC already ordered Ortho consulted on 05/28 for weight bearing recommendations and care of metatarsal and fibular fx, she may WBAT with post op shoe. She will return to the OR today for debridement and replace Instill wound vac. Continue Kefzol Q8. Monitor anemia. 06/01 HGB up to 7.8 after 1 unit PRBC (6.6 prior to transfusion yesterday) She is on iron supplement, will add vit C to be given with the iron. Continue daily CBC Last chemistry was 1 week ago, will order BMP for tomorrow. Continue IV Cefazolin Dr. Reece to decide if return to OR on is needed, or if bedside vac change should be attempted. 06/02 HGB has remained stable, 7.8 today. BMP today unremarkable, see labs Pain controlled with [place]. She is appropriately "refusing" Mirilax. If she were to develop diarrhea, will want to do C-diff test. Plan return to OR tomorrow with Dr. Reece for possible additional debridement and replace Instill Wound vac. 06/03 Continuing Cephazolin IV Q8hr. Return to the OR today for additional debridement if needed and replace vac. She likely will need sedation for at least 1-2 more vac changes, depending on how much is debrided today. We discussed the process of starting bedside vac changes with IV and oral pain medication after there has been some granulation formation which would lessen the pain. Then gradually try PO pain medication for vac changes. PO med pain control is needed before she can be discharged. She understands and is hoping this transition to PO pain meds happens quickly. 06/04 Less debridement yesterday of the LLE, granulation is growing but still likely enough pain that return to the OR on Thursday would be most beneficial for hopefully a last debridement. Then we could possibly start working toward vac change at bedside. Continue to monitor HGB and WBC. Both are stable today,
[2018-06-04] MEDS: POLYETHYL GLYCOL 3350 17gm PACKET PO SCH (13:59)
[2018-06-04] MEDS: HYDROCODONE/APAP 10 MG/325 MG TABLET PO PRN ×2 (15:53→21:09)
[2018-06-04] MEDS: ZOLPIDEM 5 MG TABLET PO SCH (20:16)
[2018-06-04] MEDS: AMLODIPINE 2.5 MG TABLET PO SCH (20:17)
[2018-06-04] MEDS: OMEPRAZOLE 20 MG CAPSULE PO SCH (20:17)
[2018-06-04] MEDS: LISINOPRIL 20 MG TABLET PO SCH (20:17)
[2018-06-04] MEDS: PRAMIPEXOLE 0.25 MG TABLET PO SCH (20:18)
[2018-06-05] MEDS: CEFAZOLIN 1 G in NS 100 ML IV SCH ×3 (00:50→16:09)
[2018-06-05] MEDS: DOCUSATE SODIUM 100 MG CAPSULE PO SCH (08:53)
[2018-06-05] MEDS: POLYETHYL GLYCOL 3350 17gm PACKET PO SCH (08:53)
[2018-06-05] MEDS: ENOXAPARIN 40 MG/0.4 ML INJECTION SQ SCH (08:53)
[2018-06-05] MEDS: FERROUS GLUCONATE 324 MG TABLET PO SCH (08:53)
[2018-06-05] MEDS: ASCORBIC ACID 500 MG TABLET PO SCH (08:53)
[2018-06-05] MEDS: HYDROCODONE/APAP 10 MG/325 MG TABLET PO PRN ×2 (09:35→20:44)
--- NOTE | 2018-06-05 13:21 | Progress Note ---
DATE OF VISIT 06/04/2018 REASON FOR VISIT Covering surgical care for Dr. Leung. SUBJECTIVE is still doing well today. She says that her pain has been controlled. She has been having loose stools. Basil Costa APRN, ordered a C. diff earlier today and this is pending. OBJECTIVE VITAL SIGNS: Afebrile with stable vitals on room air. GENERAL: The patient is awake, alert, in no acute distress. EXTREMITIES: Left lower extremity has her wound VAC in position with a good seal. LABORATORY DATA Hemoglobin 8.9, C-difficile toxin pending. IMPRESSION 1. Traumatic wound of the left leg - stable. 2. Left malleolar fracture and right metatarsal fractures - stable. 3. Hypertension - chronic, stable. 4. Osteoarthritis - chronic. 5. Acute blood loss anemia - improved. 6. Diarrhea - C. diff testing pending. PLAN 1. Continue Instill VAC. 2. Continue IV cefazolin. 3. Await C. diff testing. See separate progress note by Basil Costa APRN. I agree with her documentation. [facility]
[2018-06-05] MEDS: AMLODIPINE 2.5 MG TABLET PO SCH (20:42)
[2018-06-05] MEDS: PRAMIPEXOLE 0.25 MG TABLET PO SCH (20:42)
[2018-06-05] MEDS: LISINOPRIL 20 MG TABLET PO SCH (20:43)
[2018-06-05] MEDS: ZOLPIDEM 5 MG TABLET PO SCH (20:44)
[2018-06-05] MEDS: OMEPRAZOLE 20 MG CAPSULE PO SCH (20:44)
[2018-06-06] MEDS: CEFAZOLIN 1 G in NS 100 ML IV SCH ×3 (01:16→16:07)
[2018-06-06] MEDS: ENOXAPARIN 40 MG/0.4 ML INJECTION SQ SCH (08:16)
[2018-06-06] MEDS: FERROUS GLUCONATE 324 MG TABLET PO SCH (08:16)
[2018-06-06] MEDS: ASCORBIC ACID 500 MG TABLET PO SCH (08:16)
[2018-06-06] MEDS ORDERED: SIMETHICONE 125 MG CHEWABLE TABLET PO PRN (11:28)
[2018-06-06] MEDS: HYDROCODONE/APAP 10 MG/325 MG TABLET PO PRN ×2 (15:10→21:09)
[2018-06-06] MEDS: SALINE FLUSH 10ml SYRINGE IV PRN (21:10)
[2018-06-06] MEDS: LISINOPRIL 20 MG TABLET PO SCH (21:10)
[2018-06-06] MEDS: PRAMIPEXOLE 0.25 MG TABLET PO SCH (21:10)
[2018-06-06] MEDS: AMLODIPINE 2.5 MG TABLET PO SCH (21:10)
[2018-06-06] MEDS: ZOLPIDEM 5 MG TABLET PO SCH (21:11)
[2018-06-06] MEDS: OMEPRAZOLE 20 MG CAPSULE PO SCH (21:11)
[2018-06-07] MEDS: CEFAZOLIN 1 G in NS 100 ML IV SCH ×3 (01:55→17:03)
[2018-06-07] MEDS: FERROUS GLUCONATE 324 MG TABLET PO SCH (08:07)
[2018-06-07] MEDS: ASCORBIC ACID 500 MG TABLET PO SCH (08:07)
--- NOTE | 2018-06-07 08:49 | Progress Note ---
DATE OF VISIT 06/05/2018 REASON FOR VISIT Covering surgical care for Dr. Leung. BHARAT Hernández still has no significant complaints. Her pain has been controlled with approximately two [place] 10 tablets daily. Her Clostridium difficile testing was negative. She has been refusing her stool softeners and MiraLAX. OBJECTIVE VITAL SIGNS: Afebrile with stable vitals on room air. GENERAL: The patient is awake and alert, in no acute distress. EXTREMITIES: Her wound VAC in the left lower extremity has a good seal. There is no evidence of cellulitis. IMPRESSION 52-year-old female with traumatic wound of the left leg - stable. She also has been dealing with some diarrhea but her Clostridium difficile testing was negative. PLAN 1. Hold Colace and discontinue MiraLAX. 2. Continue IV cefazolin. 3. Await repeat evaluation on Thursday in the operating room to determine if further debridement is necessary. [facility]
--- NOTE | 2018-06-07 09:05 | General Surgery Progress Note ---
Subjective Patient reports: no new complaints, pain is less, tolerating a regular diet, voiding w/o difficulty, bowel movement (normal now, diarrhea has resolved), afebrile - Vital Signs Last Vital Signs Temp 97.4 F 06/07/18 07:44 Pulse 73 06/07/18 07:44 Resp 18 06/07/18 07:44 BP 166/89 H 06/07/18 07:44 Pulse Ox 95 06/07/18 07:44 - Laboratory Result Diagrams: 06/07/18 04:03 06/02/18 04:05 - Abnormal Exam Abdominal: obese Skin: Instill wound vac left lower leg nicely compressed, canister being changed during my visit. - Normal Exam General: awake, alert, oriented Respiratory: no labored breathing Psychiatric: normal affect Neurological: CN 2-12 grossly intact Assessment and Plan (1) Degloving injury of left lower leg Current Visit: No Status: Acute Qualifiers: Encounter type: initial encounter Qualified Code(s): S81.802A - Unspecified open wound, left lower leg, initial encounter Problem details: left (2) Lateral malleolar fracture Current Visit: No Status: Acute Qualifiers: Encounter type: initial encounter Fracture type: closed Fracture alignment: nondisplaced Laterality: left Qualified Code(s): S82.65XA - Nondisplaced fracture of lateral malleolus of left fibula, initial encounter for closed fracture (3) Metatarsal bone fracture Current Visit: No Status: Acute Qualifiers: Encounter type: initial encounter Metatarsal bone: fifth Fracture type: closed Fracture alignment: nondisplaced Laterality: right Qualified Code(s ): S92.354A - Nondisplaced fracture of fifth metatarsal bone, right foot, initial encounter for closed fracture (4) Hypertension Current Visit: No Status: Chronic Qualifiers: Hypertension type: essential hypertension Qualified Code(s): I10 - Essential (primary) hypertension (5) Osteoarthritis Current Visit: No Status: Chronic Qualifiers: Osteoarthritis location: unspecified site Osteoarthritis type: unspecified Qualified Code(s): M19.90 - Unspecified osteoarthritis, unspecified site Plan: Planning on return to the OR today for possible debridement LLE and replace Instill vac. Hoping next vac change will be at bedside, discussed probable routine of starting with a fairly big dose of PO [place] and have IV morphine or Dilaudid available if needed for vac change. If PO [place] is sufficient for vac change, will then be able to discharge and have vac changes in wound clinic 2x week. Hospital Course Summary Disclaimer: The visit summary below is not to be considered part of the above Progress Note. Hospital Course: 05/25/2018 POD #1 Post surgical pain not well controlled with Morphine, will add [place] 10 and DC Ultram. Continue Stool softener Continue Cefazolin 1GM Q8H Continue most home meds. Start Lovenox tomorrow (last dose Eliquis 05/23 PM) Continue wound vac, with likely return to OR on for additional debridement and replacement of vac. 05/27 Plan return to OR today, probably late afternoon, for additional debridement if needed and replace wound vac. Continue IV ABX, working on a wheelchair ramp at home. Will have a better idea of potential discharge after today's debridement. Home vac is already available. Will have wound clinic do vac changes twice a week upon discharge. 05/28 Additional necrotic tissue had to be derided yesterday. Instill vac applied. Will continue [place] and Motrin prn for pain. Mirilax to prevent constipation. PT to help with safe ambulation. AM HGB 7.1, repeat in the afternoon 7.2 Plan on return to the OR on Thursday with Dr. Reece for another look, debridement if needed, and re-placement of Instill vac 05/31 HGB has dipped to 6.6, she is slightly symptomatic with this, fatigue, 1 unit PRBC already ordered Ortho consulted on 05/28 for weight bearing recommendations and care of metatarsal and fibular fx, she may WBAT with post op shoe. She will return to the OR today for debridement and replace Instill wound vac. Continue Kefzol Q8. Monitor anemia. 06/01 HGB up to 7.8 after 1 unit PRBC (6.6 prior to transfusion yesterday) She is on iron supplement, will add vit C to be given with the iron. Continue daily CBC Last chemistry was 1 week ago, will order BMP for tomorrow. Continue IV Cefazolin Dr. Reece to decide if return to OR on is needed, or if bedside vac change should be attempted. 06/02 HGB has remained stable, 7.8 today. BMP today unremarkable, see labs Pain controlled with [place]. She is appropriately "refusing" Mirilax. If she were to develop diarrhea, will want to do C-diff test. Plan return to OR tomorrow with Dr. Reece for possible additional debridement and replace Instill Wound vac. 06/03 Continuing Cephazolin IV Q8hr. Return to the OR today for additional debridement if needed and replace vac. She likely will need sedation for at least 1-2 more vac changes, depending on how much is debrided today. We discussed the process of starting bedside vac changes with IV and oral pain medication after there has been some granulation formation which would lessen the pain. Then gradually try PO pain medication for vac changes. PO med pain control is needed before she can be discharged. She understands and is hoping this transition to PO pain meds happens quickly. 06/04 Less debridement yesterday of the LLE, granulation is growing but still likely enough pain that return to the OR on Thursday would be most beneficial for hopefully a last debridement. Then we could possibly start working toward vac change at bedside. Continue to monitor HGB and WBC. Both are stable today,
--- NOTE | 2018-06-07 09:32 | Progress Note ---
DATE OF VISIT 06/06/2018 REASON FOR VISIT Covering surgical care for Dr. Leung. SUBJECTIVE is doing well. She did complain earlier today of some abdominal discomfort that she thought may be related to gas. OBJECTIVE VITAL SIGNS: Afebrile with stable vitals on room air. GENERAL: The patient is awake and alert, in no acute distress. EXTREMITIES: Wound VAC in the left lower extremity is stable with a good seal. IMPRESSION 62-year-old female with a traumatic wound to the left leg - stable. PLAN 1. Continue Instill VAC. 2. Continue IV cefazolin until evaluation by Dr. Leung tomorrow. 3. Dr. Leung will be returning tomorrow and taking back to the operating room to evaluate her wound and change her wound VAC. 4. She was given simethicone earlier today to try to help with her vague abdominal symptoms. She did feel this gave her some relief. AHMET
[2018-06-07] MEDS ORDERED: MIDAZOLAM 2mg/2ml INJECTION ONE (16:35)
--- NOTE | 2018-06-07 16:41 | Anesthesia Preoperative Report ---
Anesthesia Preoperative Record - Date and Time Date: 06/07/18 Preoperative Diagnosis: Surgical Debridement Lt Lower Leg Proposed Procedure: I&D Leg wound NPO Since Date: 06/07/18 NPO Since Time: 00:00 Allergies/Adverse Reactions: Allergies Allergy/AdvReac Type Severity Reaction Status Date / Time adhesive Allergy Unknown ITCHING, Verified 12/23/17 14:53 RASH Sulfa (Sulfonamide Allergy Unknown N&V Verified 12/23/17 14:53 Antibiotics) Choline Fenofibrate Allergy Unknown MUSCLE Uncoded 12/23/17 14:53 CRAMPS diclofenac potassium Allergy Unknown STOMACH Uncoded 12/23/17 14:53 DISTRESS oxycodone HCl AdvReac Unknown ITCH Uncoded 12/23/17 14:53 statins AdvReac Uncoded 12/23/17 14:53 - Vital Signs Vital Signs: Temperature 98.7 F 06/07/18 14:50 Pulse Rate 64 06/07/18 14:50 Respiratory Rate 16 06/07/18 14:50 Blood Pressure 175/84 H 06/07/18 14:50 Pulse Oximetry 97 06/07/18 14:50 Height and Weight: Height 5 ft 4 in Weight 104 kg Body Mass Index 40.6 - Medications Inpatient Medications: Current Medications Hydrocodone Bitart/Acetaminophen ([place] 10/325) 1 tab PO Q4H PRN PRN Reason: Pain Last Admin: 06/06/18 21:09 Dose: 1 tab Hydrocodone Bitart/Acetaminophen ([place] 5/325) 1 - 2 tab PO Q5H PRN PRN Reason: Pain Amlodipine Besylate (Norvasc) 2.5 mg PO [facility] Last Admin: 06/06/18 21:10 Dose: 2.5 mg Ascorbic Acid (Vitamin C) 1,000 mg PO DAILY [facility] Last Admin: 06/07/18 08:07 Dose: Not Given Docusate Sodium (Colace) 100 mg PO BID [facility] Last Admin: 06/05/18 08:53 Dose: Not Given Enoxaparin Sodium (Lovenox) 40 mg SQ DAILY [facility] Last Admin: 06/06/18 08:16 Dose: 40 mg Ferrous Gluconate (Fergon) 324 mg PO WB [facility] Last Admin: 06/07/18 08:07 Dose: Not Given Hydromorphone HCl (Dilaudid) 0 mg IVP Q10M PRN Last Admin: 06/03/18 10:18 Dose: 1 mg Hydromorphone HCl (Dilaudid) 0 mg IVP Q10M PRN Last Admin: 06/03/18 12:05 Dose: 1 mg Cefazolin Sodium 1 g/ Sodium (Chloride) 100 mls @ 200 mls/hr IV Q8HR [facility] Last Infusion: 06/07/18 09:16 Dose: Infused Ibuprofen (Motrin) 600 mg PO Q6H PRN PRN Reason: Pain Lisinopril (Prinivil) 20 mg PO [facility] Last Admin: 06/06/18 21:10 Dose: 20 mg Metoprolol Succinate (Toprol Xl) 100 mg PO [facility] Last Admin: 06/06/18 21:10 Dose: 100 mg Morphine Sulfate (Morphine Sulfate Inj) 1 - 4 mg IVP Q2H PRN PRN Reason: Pain Last Admin: 05/31/18 20:11 Dose: 2 mg Omeprazole (Prilosec) 20 mg PO [facility] Last Admin: 06/06/18 21:11 Dose: 20 mg Ondansetron HCl (Zofran Odt Tablet) 4 mg PO Q4H PRN PRN Reason: Nausea &/or vomiting Ondansetron HCl (Zofran) 4 mg IVP O PRN PRN Reason: Nausea &/or vomiting Pramipexole Dihydrochloride (Mirapex) 0.125 mg PO [facility] Last Admin: 06/06/18 21:10 Dose: 0.125 mg Rizatriptan Benzoate (Maxalt 5 Mg) 10 mg PO DAILY PRN PRN Reason: Headache Simethicone (Phazyme) 125 mg PO Q6HR PRN PRN Reason: Gas Last Admin: 06/06/18 11:40 Dose: 125 mg Sodium Chloride (Normal Saline) 500 ml IV PRN PRN Last Admin: 06/03/18 12:22 Dose: 500 ml Sodium Chloride (Iv Flush) 10 - 80 ml IV PRN PRN PRN Reason: Flushing Last Admin: 06/06/18 21:10 Dose: 10 ml Tramadol HCl (Ultram) 50 mg PO Q4H PRN PRN Reason: Pain Last Admin: 06/03/18 18:09 Dose: 50 mg Zolpidem Tartrate (Ambien) 5 mg PO [facility] Last Admin: 06/06/18 21:11 Dose: 5 mg Home Medications: Home Medications Medication Instructions Recorded Confirmed Type Omeprazole/Sodium Bicarbonate 1 cap PO HS #0 09/20/12 05/24/18 History [Zegerid 20 mg Capsule] hydrochlorothiazide 12.5 mg tablet 12.5 mg PO HS 10/26/17 05/24/18 History Acetaminophen [Acetaminophen Extra 1,000 mg PO Q6HR PRN 05/17/18 05/24/18 History Strength] Amlodipine [Norvasc] 2.5 mg PO HS 05/17/18 05/24/18 History Lisinopril [Prinivil] 20 mg PO HS 05/17/18 05/24/18 History Metoprolol Succinate [Toprol Xl] 100 mg PO HS 05/17/18 05/24/18 History PEG 3350 17gm PACKET [Miralax] 17 gm PO DAILY 05/17/18 05/24/18 History Pramipexole Di-HCl [Mirapex] 0.125 mg PO HS 05/17/18 05/24/18 History Rizatriptan Benzoate [Maxalt] 10 mg PO DAILY PRN 05/17/18 05/24/18 History Docusate Sodium [Colace] 100 mg PO BID cap 05/24/18 05/24/18 Rx Ferrous Gluconate [Fergon] 324 mg PO WB tab 05/24/18 05/24/18 Rx Hydrocodone/APAP 10/325 [[place] 1 - 2 tab PO Q4H PRN tab 05/24/18 05/24/18 Rx 10/325] Tramadol [Ultram] 50 mg PO Q4H PRN tab 05/24/18 05/24/18 Rx Zolpidem [Ambien] 5 mg PO HS tab 05/24/18 05/24/18 Rx Is Patient on Beta Eusebio?: Yes Beta Eusebio Last Dose Date/Time: 06/06/18 @ 2100 - Medical History Respiratory: DENIES: Sleep Apnea Cardiovascular: Reports: Hypertension, High Cholesterol Gastrointestional: Reports: Gastroesophageal Reflux Disease, Hiatal Hernia, Morbid Obesity DENIES: Nausea or Vomiting Present Neuro/Musculoskeletal: Reports: Back Problems (HERNIATED DISC IN BACK) Other History: DENIES: Anesthesia Reactions - Surgical History HEENT Surgeries: Reports: Tonsillectomy Cardiac Surgeries/Treatments: Reports: Cardiac Catheterization (2008- ) GI Surgery/Treatments: Reports: Colonoscopy, EGD Musculoskeletal Surgery/Tx: Reports: Shoulder Arthroscopy (7 anchors R shoulder , PIP joint remove L toe x2), Total Knee Replacement (Rt) Reproductive Surgery/Treatment: Reports: Section, Tubal Ligation Anesthesia Reactions: None Hx Family Anesthesia Reaction: No History of Motion Sickness: No - Social History Smoking Status: Never smoker Hx Chewing Tobacco Use: No Second Hand Exposure: No Substance Use Type: does not use Alcohol Intake: never Alcohol Intake Frequency: does not drink - Pertinent Findings Laboratory: CBC and BMP 06/07/18 04:03 06/02/18 04:05 EKG: Sinus Rhythm - Physical Exam Respiratory Exam: Present: lungs clear, bilateral breath sounds equal Cardiovascular Exam: Present: regular rate and rhythm - Airway Assessment Mallampati Score: II TMD: 3 Fingerbreadths Neck Extension: fair Overall Assessment: may be difficult mask vent, may be difficult intubation - ASA ASA Score: 3 - Plan Anesthesia: General TIVA - Discussion Discussion: Discussed risks/options/alternatives of anesthesia and questions answered. Patient consents. Nursing pain assessment noted. Present for Discussion: other (none) Attestation Statement: Prior to the delivery of any anesthetic medication, I examined the patient, developed the plan, obtained the patient's consent and discussed the risk and benefits of the procedure with the patient/guardian. - Additional Information Seen by Anesthesia: Yes
[2018-06-07] MEDS ORDERED: FentaNYL 100 MCG/2 ML INJECTION ONE (17:17)
--- NOTE | 2018-06-07 17:40 | General Surgery Procedure Note ---
Date of Procedure: 06/07/18 Surgeon: [employer]: Basil Costa APRN Postoperative Diagnosis: wound left lower leg Procedure: debridement slough left lower leg wound and placement of Instill Wound Vac Estimated Blood Loss: See Anesthesia Record. Pathology: none sent
[2018-06-07] MEDS ORDERED: PROPOFOL 500 MG/50 ML VIAL ONE ×2 (17:42)
[2018-06-07] MEDS ORDERED: LR 1,000 ML IV SCH ×2 (17:45→18:43)
[2018-06-07] MEDS: HYDROMORPHONE 2 MG/ML INJECTION IVP PRN ×2 (17:55→18:15)
[2018-06-07] MEDS ORDERED: DiphenhydrAMINE 50 MG/ML INJECTION IVP PRN (18:00)
[2018-06-07] MEDS ORDERED: HYDROMORPHONE 2 MG/ML INJECTION IVP PRN (18:00)
[2018-06-07] MEDS ORDERED: ONDANSETRON 4 MG/2 ML INJECTION IVP PRN (18:00)
--- NOTE | 2018-06-07 18:07 | Anesthesia Postoperative Note ---
- Date and Time Date: 06/07/18 Time: 18:06 - Status Patient Participated in Evaluation: Patient Participated in Person Vital Signs: Temperature 98.7 F 06/07/18 14:50 Pulse Rate 64 06/07/18 14:50 Respiratory Rate 17 06/07/18 17:55 Blood Pressure 175/84 H 06/07/18 14:50 Pulse Oximetry 97 06/07/18 14:50 Respiratory Function: Airway Patent Cardiovascular Function: Regular Pulse EKG: Sinus Rhythm Mental Status: Alert and Oriented Pain Intensity: 7 Hydration: IV Infusing Nausea/Vomiting: None Complications During Recover: None Apparent - Follow-Up Instructions Instructions: Per Surgeon
[2018-06-07] MEDS ORDERED: AMLODIPINE 2.5 MG TABLET PO ONE (19:31)
--- NOTE | 2018-06-07 20:11 | Operative Note ---
DATE OF SERVICE 06/07/2018 SURGEON Guero Leung MD PREOPERATIVE DIAGNOSIS Traumatic wound involving left lower extremity. POSTOPERATIVE DIAGNOSIS Traumatic wound involving left lower extremity. PROCEDURE Exploration of traumatic wound involving left lower extremity with excisional surgical debridement of necrotic subcutaneous tissue and delayed closure of area of subcutaneous tunneling involving medial aspect of wound. Area closed 12 cm in length. ANESTHESIA TIVA BRIEF HISTORY/INDICATIONS Mrs. Jeter is a 62-year-old female who had the misfortune developing a fairly significant traumatic wound involving her left lower extremity resulting in a "degloving injury." A portion of the flap that had been lifted off the underlying enveloping fascia necrosed, requiring wide excisional surgical debridement. She has been undergoing multiple wound VAC changes and re- exploration of her wound. Patient presents today to undergo re-exploration of her wound and removal and reapplication of her wound VAC. For completeness please refer to notes included in the patient's chart. NARRATIVE OF PROCEDURE After informed consent was obtained the patient was brought to the operative suite and placed on the table in supine fashion. Patient subsequently underwent total intravenous anesthesia by the nurse field support engineer at my request. Wound VAC was then removed. Left lower extremity was prepped and draped in sterile fashion. Formal timeout was then completed. The wound was carefully explored. I was quite pleased to see that the majority of the wound had completely granulated in. There were some small areas along the anterior tibial region overlying the exposed fascia which was void of granulation tissue. There was some minimal necrotic tissue at this location. Excisional surgical debridement was carried out utilizing a surgical curette until a minimal amount of bleeding began to occur. Attention was then focused towards the medial aspect of the wound. There was an area where the wound had tunneled beneath the surface of the skin about 3-4 cm medially. The area of tunneling again was about 12 cm in length and about 3-4 cm in width as stated above. There was minimal residual necrotic subcutaneous tissue within this portion of the wound. Debridement was then again carried out utilizing a sharp surgical curette. This area was then closed in a running fashion with 3-0 Vicryl. Wound VAC was then applied. Steri-Drape was placed surrounding the wound edges. A small piece of black foam was placed upon the Steri-Drape along the edge of the medial aspect of the wound to provide pressure to the area that had been closed. Remaining wound was then covered with black foam followed by an additional Steri-Drape. Track pad was then applied. Patient is in the process of awakening from her anesthetic and will be sent back to the preop area once deemed in stable condition. AHMET
[2018-06-07] MEDS: PRAMIPEXOLE 0.25 MG TABLET PO SCH (20:53)
[2018-06-07] MEDS: AMLODIPINE 2.5 MG TABLET PO SCH (20:54)
[2018-06-07] MEDS: OMEPRAZOLE 20 MG CAPSULE PO SCH (20:55)
[2018-06-07] MEDS: ZOLPIDEM 5 MG TABLET PO SCH (20:55)
[2018-06-07] MEDS: HYDROCODONE/APAP 10 MG/325 MG TABLET PO PRN (20:55)
[2018-06-07] MEDS: LISINOPRIL 20 MG TABLET PO SCH (20:55)
[2018-06-08] MEDS: CEFAZOLIN 1 G in NS 100 ML IV SCH ×3 (01:55→16:31)
[2018-06-08] MEDS: HYDROCODONE/APAP 10 MG/325 MG TABLET PO PRN (05:55)
--- NOTE | 2018-06-08 08:41 | General Surgery Progress Note ---
Subjective Patient reports: no new complaints, tolerating a regular diet, voiding w/o difficulty, bowel movement (no diarrhea), afebrile Narrative: Return to the OR yesterday revealed the wound to be 100% granulation. Instill vac applied. She denies any concerns. The left lower leg is tender in some areas with palpation. - Vital Signs Last Vital Signs Temp 97.1 F 06/08/18 07:07 Pulse 72 06/08/18 07:07 Resp 18 06/08/18 07:07 BP 135/73 06/08/18 07:07 Pulse Ox 97 06/08/18 07:07 - Laboratory Result Diagrams: 06/08/18 04:28 06/02/18 04:05 - Abnormal Exam Abdominal: obese Skin: Instll vac left lower leg with [place]iente foam nicely compressed. [place] fluid in canister. - Normal Exam General: awake, alert, oriented, no acute distress Cardiovascular: regular rhythm, regular rate Respiratory: clear bilaterally, no labored breathing Abdominal: soft, non-tender Assessment and Plan (1) Degloving injury of left lower leg Current Visit: No Status: Acute Qualifiers: Encounter type: initial encounter Qualified Code(s): S81.802A - Unspecified open wound, left lower leg, initial encounter Problem details: left (2) Lateral malleolar fracture Current Visit: No Status: Acute Qualifiers: Encounter type: initial encounter Fracture type: closed Fracture alignment: nondisplaced Laterality: left Qualified Code(s): S82.65XA - Nondisplaced fracture of lateral malleolus of left fibula, initial encounter for closed fracture (3) Metatarsal bone fracture Current Visit: No Status: Acute Qualifiers: Encounter type: initial encounter Metatarsal bone: fifth Fracture type: closed Fracture alignment: nondisplaced Laterality: right Qualified Code(s ): S92.354A - Nondisplaced fracture of fifth metatarsal bone, right foot, initial encounter for closed fracture (4) Hypertension Current Visit: No Status: Chronic Qualifiers: Hypertension type: essential hypertension Qualified Code(s): I10 - Essential (primary) hypertension (5) Osteoarthritis Current Visit: No Status: Chronic Qualifiers: Osteoarthritis location: unspecified site Osteoarthritis type: unspecified Qualified Code(s): M19.90 - Unspecified osteoarthritis, unspecified site Plan: LLE wound now with 100% granulation utilizing Instill wound vac. Continue vac, there is a possibility of skin grafting later this week or early next week. Hospital Course Summary Disclaimer: The visit summary below is not to be considered part of the above Progress Note. Hospital Course: 05/25/2018 POD #1 Post surgical pain not well controlled with Morphine, will add [place] 10 and DC Ultram. Continue Stool softener Continue Cefazolin 1GM Q8H Continue most home meds. Start Lovenox tomorrow (last dose Eliquis 05/23 PM) Continue wound vac, with likely return to OR on for additional debridement and replacement of vac. 05/27 Plan return to OR today, probably late afternoon, for additional debridement if needed and replace wound vac. Continue IV ABX, working on a wheelchair ramp at home. Will have a better idea of potential discharge after today's debridement. Home vac is already available. Will have wound clinic do vac changes twice a week upon discharge. 05/28 Additional necrotic tissue had to be derided yesterday. Instill vac applied. Will continue Blair and Motrin prn for pain. Mirilax to prevent constipation. PT to help with safe ambulation. AM HGB 7.1, repeat in the afternoon 7.2 Plan on return to the OR on Thursday with Dr. Reece for another look, debridement if needed, and re-placement of Instill vac 05/31 HGB has dipped to 6.6, she is slightly symptomatic with this, fatigue, 1 unit PRBC already ordered Ortho consulted on 05/28 for weight bearing recommendations and care of metatarsal and fibular fx, she may WBAT with post op shoe. She will return to the OR today for debridement and replace Instill wound vac. Continue Kefzol Q8. Monitor anemia. 06/01 HGB up to 7.8 after 1 unit PRBC (6.6 prior to transfusion yesterday) She is on iron supplement, will add vit C to be given with the iron. Continue daily CBC Last chemistry was 1 week ago, will order BMP for tomorrow. Continue IV Cefazolin Dr. Reece to decide if return to OR on is needed, or if bedside vac change should be attempted. 06/02 HGB has remained stable, 7.8 today. BMP today unremarkable, see labs Pain controlled with Blair. She is appropriately "refusing" Mirilax. If she were to develop diarrhea, will want to do C-diff test. Plan return to OR tomorrow with Dr. Reece for possible additional debridement and replace Instill Wound vac. 06/03 Continuing Cephazolin IV Q8hr. Return to the OR today for additional debridement if needed and replace vac. She likely will need sedation for at least 1-2 more vac changes, depending on how much is debrided today. We discussed the process of starting bedside vac changes with IV and oral pain medication after there has been some granulation formation which would lessen the pain. Then gradually try PO pain medication for vac changes. PO med pain control is needed before she can be discharged. She understands and is hoping this transition to PO pain meds happens quickly. 06/04 Less debridement yesterday of the LLE, granulation is growing but still likely enough pain that return to the OR on Thursday would be most beneficial for hopefully a last debridement. Then we could possibly start working toward vac change at bedside. Continue to monitor HGB and WBC. Both are stable today, 06/08 LLE wound now with 100% granulation utilizing Instill wound vac. Continue vac, there is a possibility of skin grafting later this week or early next week.
[2018-06-08] MEDS: ASCORBIC ACID 500 MG TABLET PO SCH (09:23)
[2018-06-08] MEDS: FERROUS GLUCONATE 324 MG TABLET PO SCH (09:24)
[2018-06-08] MEDS ORDERED: AMLODIPINE 2.5 MG TABLET PO ONE (19:31)
[2018-06-08] MEDS: PRAMIPEXOLE 0.25 MG TABLET PO SCH (20:30)
[2018-06-08] MEDS: AMLODIPINE 2.5 MG TABLET PO SCH (20:31)
[2018-06-08] MEDS: LISINOPRIL 20 MG TABLET PO SCH (20:31)
[2018-06-08] MEDS: OMEPRAZOLE 20 MG CAPSULE PO SCH (20:33)
[2018-06-08] MEDS: ZOLPIDEM 5 MG TABLET PO SCH (20:34)
--- NOTE | 2018-06-08 20:39 | Progress Note ---
DATE OF SERVICE 06/08/2018 FINDINGS Ms. Jeter was seen this evening on rounds. She was without complaints. PHYSICAL EXAM VITAL SIGNS: Afebrile, normotensive. Please refer to EMR. EXTREMITIES: Wound VAC is in place to left lower extremity and functioning without difficulty. LABORATORY/RADIOGRAPHIC EVALUATION The patient had a CBC today that was unremarkable. Hemoglobin is stable at 8.4. White count stable at 8.8. ASSESSMENT 62-year-old female with history for traumatic degloving injury involving left lower extremity. Patient currently doing well. PLAN Continue with negative wound pressure therapy and antibiotic coverage. Will plan on proceeding with split-thickness skin graft to left lower extremity to provide closure of wound. I am pleased with the patient's progress at this time. [facility]
[2018-06-09] MEDS: CEFAZOLIN 1 G in NS 100 ML IV SCH ×3 (02:57→16:30)
[2018-06-09] MEDS: FERROUS GLUCONATE 324 MG TABLET PO SCH (09:58)
[2018-06-09] MEDS: ASCORBIC ACID 500 MG TABLET PO SCH (09:58)
--- NOTE | 2018-06-09 13:00 | General Surgery Progress Note ---
Subjective Patient reports: no new complaints, feels better, pain is less, tolerating a regular diet, voiding w/o difficulty, bowel movement Narrative: Patient states she's not had any pain pills for about 2 days. He is excited about skin grafting tomorrow. No further diarrhea. - Vital Signs Last Vital Signs Temp 97.4 F 06/09/18 12:00 Pulse 99 06/09/18 12:00 Resp 12 06/09/18 12:00 BP 141/73 H 06/09/18 12:00 Pulse Ox 100 06/09/18 12:00 - Laboratory Result Diagrams: 06/09/18 04:10 06/02/18 04:05 - Abnormal Exam Skin: Wound VAC left lower leg with valiente foam nicely compressed. - Normal Exam General: awake, alert, oriented, no acute distress Cardiovascular: regular rate Respiratory: clear bilaterally, no labored breathing Abdominal: soft, non-tender Psychiatric: normal affect Neurological: CN 2-12 grossly intact Assessment and Plan (1) Degloving injury of left lower leg Current Visit: No Status: Acute Qualifiers: Encounter type: initial encounter Qualified Code(s): S81.802A - Unspecified open wound, left lower leg, initial encounter Problem details: left (2) Lateral malleolar fracture Current Visit: No Status: Acute Qualifiers: Encounter type: initial encounter Fracture type: closed Fracture alignment: nondisplaced Laterality: left Qualified Code(s): S82.65XA - Nondisplaced fracture of lateral malleolus of left fibula, initial encounter for closed fracture (3) Metatarsal bone fracture Current Visit: No Status: Acute Qualifiers: Encounter type: initial encounter Metatarsal bone: fifth Fracture type: closed Fracture alignment: nondisplaced Laterality: right Qualified Code(s ): S92.354A - Nondisplaced fracture of fifth metatarsal bone, right foot, initial encounter for closed fracture (4) Hypertension Current Visit: No Status: Chronic Qualifiers: Hypertension type: essential hypertension Qualified Code(s): I10 - Essential (primary) hypertension (5) Osteoarthritis Current Visit: No Status: Chronic Qualifiers: Osteoarthritis location: unspecified site Osteoarthritis type: unspecified Qualified Code(s): M19.90 - Unspecified osteoarthritis, unspecified site Plan: She will be nothing by mouth after midnight and anticipate split thickness skin graft of the left lower extremity tomorrow. Donor site expected to be left thigh. Hospital Course Summary Disclaimer: The visit summary below is not to be considered part of the above Progress Note. Hospital Course: 05/25/2018 POD #1 Post surgical pain not well controlled with Morphine, will add [place] 10 and DC Ultram. Continue Stool softener Continue Cefazolin 1GM Q8H Continue most home meds. Start Lovenox tomorrow (last dose Eliquis 05/23 PM) Continue wound vac, with likely return to OR on for additional debridement and replacement of vac. 05/27 Plan return to OR today, probably late afternoon, for additional debridement if needed and replace wound vac. Continue IV ABX, working on a wheelchair ramp at home. Will have a better idea of potential discharge after today's debridement. Home vac is already available. Will have wound clinic do vac changes twice a week upon discharge. 05/28 Additional necrotic tissue had to be derided yesterday. Instill vac applied. Will continue [place] and Motrin prn for pain. Mirilax to prevent constipation. PT to help with safe ambulation. AM HGB 7.1, repeat in the afternoon 7.2 Plan on return to the OR on Thursday with Dr. Reece for another look, debridement if needed, and re-placement of Instill vac 05/31 HGB has dipped to 6.6, she is slightly symptomatic with this, fatigue, 1 unit PRBC already ordered Ortho consulted on 05/28 for weight bearing recommendations and care of metatarsal and fibular fx, she may WBAT with post op shoe. She will return to the OR today for debridement and replace Instill wound vac. Continue Kefzol Q8. Monitor anemia. 06/01 HGB up to 7.8 after 1 unit PRBC (6.6 prior to transfusion yesterday) She is on iron supplement, will add vit C to be given with the iron. Continue daily CBC Last chemistry was 1 week ago, will order BMP for tomorrow. Continue IV Cefazolin Dr. Reece to decide if return to OR on is needed, or if bedside vac change should be attempted. 06/02 HGB has remained stable, 7.8 today. BMP today unremarkable, see labs Pain controlled with [place]. She is appropriately "refusing" Mirilax. If she were to develop diarrhea, will want to do C-diff test. Plan return to OR tomorrow with Dr. Reece for possible additional debridement and replace Instill Wound vac. 06/03 Continuing Cephazolin IV Q8hr. Return to the OR today for additional debridement if needed and replace vac. She likely will need sedation for at least 1-2 more vac changes, depending on how much is debrided today. We discussed the process of starting bedside vac changes with IV and oral pain medication after there has been some granulation formation which would lessen the pain. Then gradually try PO pain medication for vac changes. PO med pain control is needed before she can be discharged. She understands and is hoping this transition to PO pain meds happens quickly. 06/04 Less debridement yesterday of the LLE, granulation is growing but still likely enough pain that return to the OR on Thursday would be most beneficial for hopefully a last debridement. Then we could possibly start working toward vac change at bedside. Continue to monitor HGB and WBC. Both are stable today, 06/08 LLE wound now with 100% granulation utilizing Instill wound vac. Continue vac, there is a possibility of skin grafting later this week or early next week.
--- NOTE | 2018-06-09 13:05 | Progress Note ---
DATE OF SERVICE 06/09/2018 FINDINGS was seen today on rounds. She was in good spirits. PHYSICAL EXAM VITAL SIGNS: Afebrile, normotensive. Please refer to EMR. EXTREMITIES: Attention was focused to the left lower extremity. Wound VAC is in place and functioning. No significant periwound erythema. ASSESSMENT 62-year-old female with history for traumatic/degloving injury to left lower extremity. Status post multiple excisional surgical debridements and application of wound VACs. Patient currently doing well. PLAN Split-thickness skin grafting later this week. Otherwise, continue with current care. AHMET
[2018-06-09] MEDS: PRAMIPEXOLE 0.25 MG TABLET PO SCH (21:07)
[2018-06-09] MEDS: OMEPRAZOLE 20 MG CAPSULE PO SCH (21:07)
[2018-06-09] MEDS: HYDROCODONE/APAP 10 MG/325 MG TABLET PO PRN (21:07)
[2018-06-09] MEDS: ZOLPIDEM 5 MG TABLET PO SCH (21:07)
[2018-06-09] MEDS: AMLODIPINE 2.5 MG TABLET PO SCH (21:08)
[2018-06-09] MEDS: LISINOPRIL 20 MG TABLET PO SCH (21:08)
[2018-06-10] MEDS: NS FLUSH BAG 500ml IV PRN (01:46)
[2018-06-10] MEDS: CEFAZOLIN 1 G in NS 100 ML IV SCH ×3 (01:46→16:56)
[2018-06-10] MEDS: FERROUS GLUCONATE 324 MG TABLET PO SCH (08:01)
[2018-06-10] MEDS: ASCORBIC ACID 500 MG TABLET PO SCH (08:02)
--- NOTE | 2018-06-10 08:29 | General Surgery Progress Note ---
Subjective Narrative: NPO for planned split thickness skin graft late this afternoon. She is excited about moving forward with wound healing. No new concerns or complaints. - Vital Signs Last Vital Signs Temp 96.8 F 06/10/18 07:26 Pulse 62 06/10/18 07:26 Resp 17 06/10/18 07:26 BP 144/77 H 06/10/18 07:26 Pulse Ox 98 06/10/18 03:39 - Laboratory Result Diagrams: 06/10/18 04:03 06/02/18 04:05 - Normal Exam General: awake, alert, oriented, no acute distress Cardiovascular: regular rate Respiratory: no labored breathing Psychiatric: normal affect Neurological: CN 2-12 grossly intact Assessment and Plan (1) Degloving injury of left lower leg Current Visit: No Status: Acute Qualifiers: Encounter type: initial encounter Qualified Code(s): S81.802A - Unspecified open wound, left lower leg, initial encounter Problem details: left (2) Lateral malleolar fracture Current Visit: No Status: Acute Qualifiers: Encounter type: initial encounter Fracture type: closed Fracture alignment: nondisplaced Laterality: left Qualified Code(s): S82.65XA - Nondisplaced fracture of lateral malleolus of left fibula, initial encounter for closed fracture (3) Metatarsal bone fracture Current Visit: No Status: Acute Qualifiers: Encounter type: initial encounter Metatarsal bone: fifth Fracture type: closed Fracture alignment: nondisplaced Laterality: right Qualified Code(s ): S92.354A - Nondisplaced fracture of fifth metatarsal bone, right foot, initial encounter for closed fracture (4) Hypertension Current Visit: No Status: Chronic Qualifiers: Hypertension type: essential hypertension Qualified Code(s): I10 - Essential (primary) hypertension (5) Osteoarthritis Current Visit: No Status: Chronic Qualifiers: Osteoarthritis location: unspecified site Osteoarthritis type: unspecified Qualified Code(s): M19.90 - Unspecified osteoarthritis, unspecified site Plan: Spit thickness skin graft to left lower leg later today Hospital Course Summary Disclaimer: The visit summary below is not to be considered part of the above Progress Note. Hospital Course: 05/25/2018 POD #1 Post surgical pain not well controlled with Morphine, will add [place] 10 and DC Ultram. Continue Stool softener Continue Cefazolin 1GM Q8H Continue most home meds. Start Lovenox tomorrow (last dose Eliquis 05/23 PM) Continue wound vac, with likely return to OR on for additional debridement and replacement of vac. 05/27 Plan return to OR today, probably late afternoon, for additional debridement if needed and replace wound vac. Continue IV ABX, working on a wheelchair ramp at home. Will have a better idea of potential discharge after today's debridement. Home vac is already available. Will have wound clinic do vac changes twice a week upon discharge. 05/28 Additional necrotic tissue had to be derided yesterday. Instill vac applied. Will continue [place] and Motrin prn for pain. Mirilax to prevent constipation. PT to help with safe ambulation. AM HGB 7.1, repeat in the afternoon 7.2 Plan on return to the OR on Thursday with Dr. Reece for another look, debridement if needed, and re-placement of Instill vac 05/31 HGB has dipped to 6.6, she is slightly symptomatic with this, fatigue, 1 unit PRBC already ordered Ortho consulted on 05/28 for weight bearing recommendations and care of metatarsal and fibular fx, she may WBAT with post op shoe. She will return to the OR today for debridement and replace Instill wound vac. Continue Kefzol Q8. Monitor anemia. 06/01 HGB up to 7.8 after 1 unit PRBC (6.6 prior to transfusion yesterday) She is on iron supplement, will add vit C to be given with the iron. Continue daily CBC Last chemistry was 1 week ago, will order BMP for tomorrow. Continue IV Cefazolin Dr. Reece to decide if return to OR on is needed, or if bedside vac change should be attempted. 06/02 HGB has remained stable, 7.8 today. BMP today unremarkable, see labs Pain controlled with [place]. She is appropriately "refusing" Mirilax. If she were to develop diarrhea, will want to do C-diff test. Plan return to OR tomorrow with Dr. Reece for possible additional debridement and replace Instill Wound vac. 06/03 Continuing Cephazolin IV Q8hr. Return to the OR today for additional debridement if needed and replace vac. She likely will need sedation for at least 1-2 more vac changes, depending on how much is debrided today. 06/04 Less debridement yesterday of the LLE, granulation is growing but still likely enough pain that return to the OR on Thursday would be most beneficial for hopefully a last debridement. Continue to monitor HGB and WBC. Both are stable today, 06/08 LLE wound now with 100% granulation utilizing Instill wound vac. Continue vac, there is a possibility of skin grafting later this week or early next week. 06/10 Split thickness skin graft to left lower extremity. Donor site left thigh.
[2018-06-10] MEDS: MORPHINE SULFATE 4mg INJECTION IVP PRN (12:45)
[2018-06-10] MEDS ORDERED: LR 1,000 ML IV SCH (14:14)
[2018-06-10] MEDS ORDERED: BUPIVACAINE 0.25%/EPI 1:200,000 30ml SDV ONE (15:07)
[2018-06-10] MEDS ORDERED: BUPIVACAINE 0.25%/EPI 1:200,000 30ml SDV ID ONE (15:45)
[2018-06-10] MEDS ORDERED: MINERAL OIL TP ONE (15:48)
[2018-06-10] MEDS ORDERED: EPINEPHrine 1mg/ml (1:1000) vial OPSITE ONE (16:11)
[2018-06-10] MEDS ORDERED: ONDANSETRON 4 MG/2 ML INJECTION IVP PRN (17:13)
[2018-06-10] MEDS ORDERED: PROPOFOL 20 ML ONE (17:41)
[2018-06-10] MEDS: HYDROMORPHONE 2 MG/ML INJECTION IVP PRN ×3 (18:06→18:26)
--- NOTE | 2018-06-10 18:06 | General Surgery Procedure Note ---
Date of Procedure: 06/10/18 Surgeon: [employer] Coordinator: Basil Costa APRN Postoperative Diagnosis: wound left lower leg Procedure: split thickness skin graft to left lower leg, donor site bilateral anterior thighs Estimated Blood Loss: See Anesthesia Record. Pathology: none sent
--- NOTE | 2018-06-10 18:10 | Anesthesia Postoperative Note ---
- Date and Time Date: 06/10/18 Time: 18:09 - Status Patient Participated in Evaluation: Patient Participated in Person Vital Signs: Temperature 98.3 F 06/10/18 14:19 Pulse Rate 68 06/10/18 14:20 Respiratory Rate 15 06/10/18 14:19 Blood Pressure 171/80 H 06/10/18 14:19 Pulse Oximetry 99 06/10/18 14:19 Respiratory Function: Airway Patent, Regular Respirations Cardiovascular Function: Regular Pulse EKG: Sinus Rhythm Mental Status: Alert and Oriented Pain Intensity: 6 (Treating with Dilaudid) Hydration: IV Infusing Nausea/Vomiting: None Complications During Recover: None Apparent - Follow-Up Instructions Instructions: Per Surgeon
[2018-06-10] MEDS ORDERED: KETOROLAC 30 MG/ML INJECTION IVP ONE (18:40)
--- NOTE | 2018-06-10 20:42 | Operative Note ---
DATE OF SERVICE 06/10/2018 SURGEON Guero Leung MD PREOPERATIVE DIAGNOSIS Traumatic wound involving left lower extremity. POSTOPERATIVE DIAGNOSIS Traumatic wound involving left lower extremity. PROCEDURE Split-thickness skin grafting to traumatic wound involving left lower extremity. Area grafted 14 cm x 15 cm. ANESTHESIA TIVA/local. BRIEF HISTORY/INDICATIONS Mrs. Jeter is a 62-year-old female who had the misfortune of developing a traumatic degloving injury to her left anterior tibial surface as a result of a fall. 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 The patient's wound has been managed utilizing negative wound pressure therapy. There is now an excellent granulation bed throughout the entire wound bed surface. The patient presents today to undergo split- thickness skin grafting to provide closure. For completeness please refer to notes included in the patient's chart. NARRATIVE OF PROCEDURE After informed consent was obtained the patient was brought to the operative suite and placed on the table in supine fashion. Left lower extremity and right anterior thigh were prepped and draped in sterile fashion. Formal timeout was then completed. Next, a [email or web address] dermatome was set to 0.012 inch and multiple skin grafts were obtained from the left anterior thigh and right anterior thigh. Grafts were placed through a 1:1 mesher. The grafts were then placed to the appropriate orientation and utilized to close the open wound involving the left anterior tibial surface that was 14 cm x 15 cm. Grafts were imbricated along the edges of the wound with 4-0 nylon sutures. The graft was imbricated to the wound bed as well as to itself along the edges within the wound bed utilizing 4-0 Monocryl. Eventually the entire wound bed was able to be covered with the split-thickness skin graft. Next, Adaptic was utilized to place overlying the split-thickness creatinine graft followed by web rolling. The nylon sutures that were placed along the edge of the wound were left long so that they could be utilized as a bolster dressing. Sutures were tied across one another, resulting in the formation of a bolster dressing. Kerlix roll was then applied to the left calf region followed by Cooper wrap. Additionally, it should be noted that 0.25% Marcaine with epinephrine was injected along the edge of the wound prior to placement of the sutures. 0.25% Marcaine was also utilized at the donor site. Following application of the dressing attention was focused to the donor sites. Benzoin was placed along the edges of the donor site. Large OpSites were then utilized to cover each donor site.. The patient tolerated the procedure without difficulty and was sent back to recovery room once deemed in stable condition. AHMET
[2018-06-10] MEDS: AMLODIPINE 2.5 MG TABLET PO SCH (20:53)
[2018-06-10] MEDS: OMEPRAZOLE 20 MG CAPSULE PO SCH (20:54)
[2018-06-10] MEDS: LISINOPRIL 20 MG TABLET PO SCH (20:54)
[2018-06-10] MEDS: PRAMIPEXOLE 0.25 MG TABLET PO SCH (20:54)
[2018-06-10] MEDS: ZOLPIDEM 5 MG TABLET PO SCH (20:55)
[2018-06-10] MEDS: HYDROCODONE/APAP 10 MG/325 MG TABLET PO PRN (21:00)
[2018-06-11] MEDS: SALINE FLUSH 10ml SYRINGE IV PRN ×2 (00:47→04:51)
[2018-06-11] MEDS: CEFAZOLIN 1 G in NS 100 ML IV SCH ×3 (00:47→17:03)
[2018-06-11] MEDS: HYDROCODONE/APAP 10 MG/325 MG TABLET PO PRN ×2 (04:50→10:57)
[2018-06-11] MEDS: FERROUS GLUCONATE 324 MG TABLET PO SCH (08:27)
[2018-06-11] MEDS: ASCORBIC ACID 500 MG TABLET PO SCH (08:27)
--- NOTE | 2018-06-11 08:34 | General Surgery Progress Note ---
Subjective Patient reports: tolerating a regular diet, voiding w/o difficulty, bowel movement, afebrile Narrative: She is surprised how little leg pain she is having. The graft site and donor sites are not bothering her much. Roscoe is very helpful, more than morphine, when she is having pain. She is looking forward to getting home where she is not "bothered every couple of hours." She is both excited about going home and apprehensive. 's work will not allow him to be home today until about 6pm. She is ambulating slowly without difficulty, eating and voiding without difficulty. After surgery O2 sats dropped below 90 while sleeping occasionally and she was placed on O2 by ND briefly. Room air now is 98% - Vital Signs Last Vital Signs Temp 95.9 F L 06/11/18 03:00 Pulse 70 06/11/18 03:00 Resp 16 06/11/18 04:50 BP 156/88 H 06/11/18 03:00 Pulse Ox 99 06/11/18 03:00 - Laboratory Result Diagrams: 06/11/18 04:35 06/02/18 04:05 - Abnormal Exam Skin: Bilateral anterior thigh donor sites with Tegaderm in tact, a nice bloody fluid collection under the Tegaderm. Left lower leg breana wrap has a shadow of blood about 4-5 cm in diameter. This has not soaked through, just a shadow at this point. - Normal Exam General: awake, alert, oriented, no acute distress Cardiovascular: regular rhythm, regular rate Respiratory: no labored breathing Abdominal: soft, non-tender Psychiatric: normal affect Neurological: CN 2-12 grossly intact Assessment and Plan (1) Degloving injury of left lower leg Current Visit: No Status: Acute Qualifiers: Encounter type: initial encounter Qualified Code(s): S81.802A - Unspecified open wound, left lower leg, initial encounter Problem details: left (2) Lateral malleolar fracture Current Visit: No Status: Acute Qualifiers: Encounter type: initial encounter Fracture type: closed Fracture alignment: nondisplaced Laterality: left Qualified Code(s): S82.65XA - Nondisplaced fracture of lateral malleolus of left fibula, initial encounter for closed fracture (3) Metatarsal bone fracture Current Visit: No Status: Acute Qualifiers: Encounter type: initial encounter Metatarsal bone: fifth Fracture type: closed Fracture alignment: nondisplaced Laterality: right Qualified Code(s ): S92.354A - Nondisplaced fracture of fifth metatarsal bone, right foot, initial encounter for closed fracture (4) Hypertension Current Visit: No Status: Chronic Qualifiers: Hypertension type: essential hypertension Qualified Code(s): I10 - Essential (primary) hypertension (5) Osteoarthritis Current Visit: No Status: Chronic Qualifiers: Osteoarthritis location: unspecified site Osteoarthritis type: unspecified Qualified Code(s): M19.90 - Unspecified osteoarthritis, unspecified site Plan: She is doing very well post large split thickness skin graft to left lower leg. Await Dr. Leung's assessment before deciding on discharge options. Hospital Course Summary Disclaimer: The visit summary below is not to be considered part of the above Progress Note. Hospital Course: 05/25/2018 POD #1 Post surgical pain not well controlled with Morphine, will add [place] 10 and DC Ultram. Continue Stool softener Continue Cefazolin 1GM Q8H Continue most home meds. Start Lovenox tomorrow (last dose Eliquis 05/23 PM) Continue wound vac, with likely return to OR on for additional debridement and replacement of vac. 05/27 Plan return to OR today, probably late afternoon, for additional debridement if needed and replace wound vac. Continue IV ABX, working on a wheelchair ramp at home. Will have a better idea of potential discharge after today's debridement. Home vac is already available. Will have wound clinic do vac changes twice a week upon discharge. 05/28 Additional necrotic tissue had to be derided yesterday. Instill vac applied. Will continue [place] and Motrin prn for pain. Mirilax to prevent constipation. PT to help with safe ambulation. AM HGB 7.1, repeat in the afternoon 7.2 Plan on return to the OR on Thursday with Dr. Reece for another look, debridement if needed, and re-placement of Instill vac 05/31 HGB has dipped to 6.6, she is slightly symptomatic with this, fatigue, 1 unit PRBC already ordered Ortho consulted on 05/28 for weight bearing recommendations and care of metatarsal and fibular fx, she may WBAT with post op shoe. She will return to the OR today for debridement and replace Instill wound vac. Continue Kefzol Q8. Monitor anemia. 06/01 HGB up to 7.8 after 1 unit PRBC (6.6 prior to transfusion yesterday) She is on iron supplement, will add vit C to be given with the iron. Continue daily CBC Last chemistry was 1 week ago, will order BMP for tomorrow. Continue IV Cefazolin Dr. Reece to decide if return to OR on is needed, or if bedside vac change should be attempted. 06/02 HGB has remained stable, 7.8 today. BMP today unremarkable, see labs Pain controlled with [place]. She is appropriately "refusing" Mirilax. If she were to develop diarrhea, will want to do C-diff test. Plan return to OR tomorrow with Dr. Reece for possible additional debridement and replace Instill Wound vac. 06/03 Continuing Cephazolin IV Q8hr. Return to the OR today for additional debridement if needed and replace vac. She likely will need sedation for at least 1-2 more vac changes, depending on how much is debrided today. 06/04 Less debridement yesterday of the LLE, granulation is growing but still likely enough pain that return to the OR on Thursday would be most beneficial for hopefully a last debridement. Continue to monitor HGB and WBC. Both are stable today, 06/08 LLE wound now with 100% granulation utilizing Instill wound vac. Continue vac, there is a possibility of skin grafting later this week or early next week. / Split thickness skin graft to left lower extremity. Donor site left thigh.
--- NOTE | 2018-06-11 14:39 | Progress Note ---
DATE OF SERVICE 06/11/2018 FINDINGS Mrs. Jeter was seen earlier today on rounds. She surprisingly denied significant pain. She states that her donor sites are somewhat tender when she "gets up and walks." Overall the patient is without significant complaints. PHYSICAL EXAM VITAL SIGNS: Afebrile, normotensive. EXTREMITIES: Attention was focused to her donor sites upon the anterior thigh regions. One can begin to see some serosanguineous fluid accumulating beneath the OpSite as one would expect. Her Cooper wrap is intact. There is a minimal amount of bleeding coming forth through the Cooper wrap at the graft site. ASSESSMENT 62-year-old female with traumatic/degloving injury to left lower extremity. Status post multiple excisional surgical debridements, utilization of negative wound pressure therapy, postop day #1 status post split-thickness skin graft to left lower extremity. PLAN Continue current care. Patient will likely be discharged tomorrow morning. Will likely try to remove some of the serosanguineous fluid from beneath the OpSites at her donor sites prior to discharge. I am pleased with the patient's progress. AHMET
[2018-06-11] MEDS: OMEPRAZOLE 20 MG CAPSULE PO SCH (20:11)
[2018-06-11] MEDS: ZOLPIDEM 5 MG TABLET PO SCH (20:11)
[2018-06-11] MEDS: PRAMIPEXOLE 0.25 MG TABLET PO SCH (20:11)
[2018-06-11] MEDS: LISINOPRIL 20 MG TABLET PO SCH (20:12)
[2018-06-11] MEDS: AMLODIPINE 2.5 MG TABLET PO SCH (20:12)
[2018-06-12] MEDS: SALINE FLUSH 10ml SYRINGE IV PRN (00:04)
[2018-06-12] MEDS: CEFAZOLIN 1 G in NS 100 ML IV SCH ×2 (00:04→11:05)
[2018-06-12 00:12] VITALS: O2SAT 96
[2018-06-12 07:34] VITALS: BP 154/96; PULSE 74; RESP 12; TEMP 96.4
[2018-06-12] MEDS ORDERED: FLUCONAZOLE 150 MG TABLET PO ONE (10:38)
[2018-06-12] MEDS: ASCORBIC ACID 500 MG TABLET PO SCH (11:05)
[2018-06-12] MEDS: FERROUS GLUCONATE 324 MG TABLET PO SCH (11:05)
[2018-06-12] MEDS ORDERED: NEOMYCIN/POLYMYXIN/BACITRACIN OINT PACKET TP PRN (11:13)
--- NOTE | 2018-06-12 11:24 | Progress Note ---
DATE OF SERVICE 06/12/2018 FINDINGS was seen this morning on rounds. She was without complaints. PHYSICAL EXAM VITAL SIGNS: Afebrile, normotensive. Please refer to EMR. EXTREMITIES: Attention was focused to her lower extremities. She has accumulated a fair amount of serosanguineous fluid beneath the OpSites. Serosanguineous fluid was aspirated with an 18-gauge needle and the puncture site was covered with an OpSite. Perhaps about 50-60 mL of serosanguineous fluid was removed from beneath the OpSites. Dressing was removed to her left calf region. Bolster dressing remains intact. There was a small portion of the graft that could be visualized along the edge of the bolster dressing. The graft appeared completely viable without any evidence for necrosis or vascular compromise. I am pleased with the appearance of the split-thickness skin graft which was exposed. ASSESSMENT 62-year-old female status post traumatic/degloving injury to left lower extremity. Status post multiple excisional surgical debridements and application of split- thickness skin graft. The patient is currently doing well. PLAN Discharge to home. The patient did share with me just prior to her discharge that she is getting a yeast infection. She has had "yeast infections in the past." Will go ahead and give a single dose of Diflucan prior to the patient's discharge. Will see the patient in office as scheduled early next week. AHMET
--- NOTE | 2018-06-14 12:49 | Discharge Summary ---
Discharge Information Date of admission: 05/24/18 19:49 Anticipated date of discharge: 06/12/18 Attending Physician: Guero Leung MD Primary care physician: Shelbie Bansal DO Consults: 05/27/18 19:35 [facility] Consult [CONS] Routine Reason for consultation: wound vac 05/28/18 11:15 Physician Consult [CONS] Routine Consulting Provider: Faustino Ceron Reason For Exam: weight bearing and fx management Ordering Provider has Notified Candy Spreader: Yes - Discharge Diagnosis (1) Degloving injury of left lower leg Status: Acute (2) Lateral malleolar fracture Status: Acute (3) Metatarsal bone fracture Status: Acute (4) Hypertension Status: Chronic (5) Osteoarthritis Status: Chronic - Laboratory Labs: 06/12/18 04:06 06/02/18 04:05 - Radiology Radiology: = = = = = = = = = = = = = = = = = = = = = = = = = = = = = = = = = = = = = = = = = = = = = = = = = = = = = = = = = = = Date of Exam: 05/28/18 Ordering Provider: Araceli Lima APRN Type of Exam(s): XR ankle BI 3V Reason for Exam(s): possible fx Indication: possible fx PROCEDURE: XR ankle BI 3V: Encounter: Initial Comparison: Foot radiographs from today Findings: Left ankle: Age-indeterminate avulsion fracture from the fibular tip measuring 4 to 5 mm in size. No additional areas concerning for fracture. No dislocation. The ankle mortise is symmetric and the talar dome intact. Right ankle: No acute fracture or dislocation seen in the ankle. Fifth metatarsal shaft fracture is better seen on the dedicated foot radiographs. The ankle mortise is symmetric and the talar dome intact. Impression: Left ankle: Age-indeterminate fibular tip avulsion fracture. Right ankle: No acute fracture in the ankle. Date of Exam: 05/28/18 Ordering Provider: Araceli Lima APRN Type of Exam(s): XR foot BI 3V Reason for Exam(s): possible fx Indication: possible fx PROCEDURE: XR foot BI 3V: Encounter: Initial Comparison: Left foot radiographs dated June 13, 2013 and right foot radiographs dated February 15, 2013 Findings: Left foot: No acute fracture or dislocation. Prior osteotomies involving the second and third toe proximal phalanges. Old healed fracture deformity of the fifth metatarsal shaft distally. Hallux valgus deformity. Midfoot soft tissue swelling. Right foot: Oblique minimally displaced fracture of the fifth metatarsal midshaft extending towards the neck. This does not involve the joint space. No additional fracture. No dislocation. Impression: Left foot: No acute osseous abnormality. Right foot: Closed post traumatic fifth metatarsal fracture. - History of Present Illness HPI: BRIEF HISTORY/INDICATIONS Mrs. Jeter is a 62-year-old female who recently had fallen, resulting in an extensive degloving injury to her left lower extremity. Patient also had some associated fractures to her lower extremity. The patient was transferred to our facility for rehab. I saw the patient towards the end of last week in our inpatient rehab facility. She did have quite extensive wound involving her left anterior tibial surface. One could see some necrotic tissue within the wound bed. Distal to the wound bed, the skin was somewhat denuded and "purplish " in nature which I was hopeful was the result of ecchymosis. It was recommended to the patient that she undergo additional excisional surgical debridement in an operative setting. Hospital Course This is a general summary of the patient's hospital course. For more details refer to the complete medical record. Hospital course: 05/25/2018 POD #1 Post surgical pain not well controlled with Morphine, will add [place] 10 and DC Ultram. Continue Stool softener Continue Cefazolin 1GM Q8H Continue most home meds. Start Lovenox tomorrow (last dose Eliquis 05/23 PM) Continue wound vac, with likely return to OR on for additional debridement and replacement of vac. 05/27 Plan return to OR today, probably late afternoon, for additional debridement if needed and replace wound vac. Continue IV ABX, working on a wheelchair ramp at home. Will have a better idea of potential discharge after today's debridement. Home vac is already available. Will have wound clinic do vac changes twice a week upon discharge. 05/28 Additional necrotic tissue had to be derided yesterday. Instill vac applied. Will continue [place] and Motrin prn for pain. Mirilax to prevent constipation. PT to help with safe ambulation. AM HGB 7.1, repeat in the afternoon 7.2 Plan on return to the OR on Thursday with Dr. Reece for another look, debridement if needed, and re-placement of Instill vac 05/31 HGB has dipped to 6.6, she is slightly symptomatic with this, fatigue, 1 unit PRBC already ordered Ortho consulted on 05/28 for weight bearing recommendations and care of metatarsal and fibular fx, she may WBAT with post op shoe. She will return to the OR today for debridement and replace Instill wound vac. Continue Kefzol Q8. Monitor anemia. 06/01 HGB up to 7.8 after 1 unit PRBC (6.6 prior to transfusion yesterday) She is on iron supplement, will add vit C to be given with the iron. Continue daily CBC Last chemistry was 1 week ago, will order BMP for tomorrow. Continue IV Cefazolin Dr. Reece to decide if return to OR on is needed, or if bedside vac change should be attempted. 06/02 HGB has remained stable, 7.8 today. BMP today unremarkable, see labs Pain controlled with [place]. She is appropriately "refusing" Mirilax. If she were to develop diarrhea, will want to do C-diff test. Plan return to OR tomorrow with Dr. Reece for possible additional debridement and replace Instill Wound vac. 06/03 Continuing Cephazolin IV Q8hr. Return to the OR today for additional debridement if needed and replace vac. She likely will need sedation for at least 1-2 more vac changes, depending on how much is debrided today. 06/04 Less debridement yesterday of the LLE, granulation is growing but still likely enough pain that return to the OR on Thursday would be most beneficial for hopefully a last debridement. Continue to monitor HGB and WBC. Both are stable today, 06/08 LLE wound now with 100% granulation utilizing Instill wound vac. Continue vac, there is a possibility of skin grafting later this week or early next week. 06/10 Split thickness skin graft to left lower extremity. Donor site left thigh. 06/11/2018 She is surprised how little leg pain she is having. The graft site and donor sites are not bothering her much. Great River is very helpful, more than morphine, when she is having pain. She is looking forward to getting home where she is not "bothered every couple of hours." She is both excited about going home and apprehensive. 's work will not allow him to be home today until about 6pm. She is ambulating slowly without difficulty, eating and voiding without difficulty. After surgery O2 sats dropped below 90 while sleeping occasionally and she was placed on O2 by [place] briefly. Room air now is 98% 06/12 Discharge to home. The patient did share with me just prior to her discharge that she is getting a yeast infection. She has had "yeast infections in the past." Will go ahead and give a single dose of Diflucan prior to the patient's discharge. Will see the patient in office as scheduled early next week. Time spent with patient: 25 - 35 minutes Resuscitation Status: Full Code Discharge Plan - Med Rec/Dispo Referrals/Follow Up: Guero Leung MD [Physician] - 06/15/18 4:15 pm Jj Knight PA [Physician Linux Kernel Engineer] - 06/16/18 10:00 am Yasmeen Instructions: Skin Grafting (DC), Blood Transfusion (GEN) Prescriptions: New Simethicone [Phazyme] 125 mg PO Q6HR PRN #30 cap PRN Reason: Gas Ascorbic Acid [Vitamin C] 1,000 mg PO DAILY #60 tab Ondansetron Odt [Zofran Odt Tablet] 4 mg PO Q4H PRN #10 tab PRN Reason: Nausea &/Or Vomiting Hydrocodone/APAP 10/325 [[place] 10/325] 1 tab PO Q5H PRN #20 tab PRN Reason: Pain Ibuprofen [Motrin] 600 mg PO Q6H PRN tab PRN Reason: Pain Continue PEG 3350 17gm PACKET [Miralax] 17 gm PO DAILY Amlodipine [Norvasc] 2.5 mg PO HS Metoprolol Succinate [Toprol Xl] 100 mg PO HS Lisinopril [Prinivil] 20 mg PO HS Rizatriptan Benzoate [Maxalt] 10 mg PO DAILY PRN PRN Reason: Headache Zolpidem [Ambien] 5 mg PO HS tab Hydrocodone/APAP 10/325 [[place] 10/325] 1 - 2 tab PO Q4H PRN tab PRN Reason: Pain Ferrous Gluconate [Fergon] 324 mg PO WB tab Docusate Sodium [Colace] 100 mg PO BID cap Omeprazole/Sodium Bicarbonate [Zegerid 20 mg Capsule] 1 cap PO HS #0 Pramipexole Di-HCl [Mirapex] 0.125 mg PO HS hydrochlorothiazide 12.5 mg tablet 12.5 mg PO HS Discontinued Acetaminophen [Acetaminophen Extra Strength] 1,000 mg PO Q6HR PRN PRN Reason: Pain Tramadol [Ultram] 50 mg PO Q4H PRN tab PRN Reason: Pain - Disposition 01 Discharged Home,Parent Care - Dismissal Complete Discharge Instructions are:: Complete
== END 2018-06-12 11:45 | disposition home or self-care (01) | DRG 577 ==
LOC: SUR 14:43 → NMC.PERIOP 14:43 → SRG 19:34
PROVIDERS: ADMIT Surgery; ATTEND Surgery
PROC: [UNRECOGNIZED PROCEDURE] (2018-06-10 15:25)